=== PATIENT | female | born 1940 | race Caucasian/White ===

== ENCOUNTER 2019-06-06 11:32 | Outpatient (CLI) | payer MEDICARE, SELFPAY ==
--- NOTE | 2019-06-06 11:35 | MM_ITS ---
WS: [id number] BILATERAL SCREENING MAMMOGRAM WITH GAEL DISPLACEMENT VIEWS. CAD PERFORMED. HISTORY: SCREENING COMPARISON: 04/27/2018, 01/26/2017 Bilateral craniocaudal and mediolateral like views are performed. Gael displacement views in CC and MLO projection also performed. Breasts composition: There are scattered areas of fibroglandular density. Benign calcification in the posterior LEFT breast. Implants are intact. There is calcification associ ated with the RIGHT breast implant but similar to prior studies. No suspicious masses or distortion. MM/[place] [id number] IMPRESSION: BI-RADS: 2-Benign FOLLOW-UP: 1 Year Follow-up
== END 2019-06-06 11:33 | disposition home or self-care (01) ==
LOC: RADSHAW 11:32
PROVIDERS: Family Provider Internal Medicine; PCP Internal Medicine; Visit Provider Internal Medicine
DX: Z12.31 Encounter for screening mammogram for malignant neoplasm of breast (principal)
CPT/HCPCS: 77067

== ENCOUNTER → 2019-12-13 14:30 | Outpatient (BNVA) | payer MEDICARE, SELFPAY | PROVIDERS: Family Provider Internal Medicine; PCP Internal Medicine; Referring Provider Dermatology; Visit Provider Dermatology | DX: L57.0 Actinic keratosis (principal); L81.4 Other melanin hyperpigmentation; D23.9 Other benign neoplasm of skin, unspecified; L82.1 Other seborrheic keratosis; D18.01 Hemangioma of skin and subcutaneous tissue | CPT/HCPCS: 17000; 99203 ==

== ENCOUNTER 2020-02-13 14:00 | Outpatient (CLI) | payer MEDICARE, SELFPAY ==
--- NOTE | 2020-02-13 14:06 | XR_ITS ---
WS: [id number] Exam: XR DEXA axial skeleton* [id number] Date/Time of Exam: 02/13/2020 2:08 PM Reason For Exam: OSTEOPOROSIS DEXA BONE DENSITOMETRY [employer] The L1-L4 bone mineral density measures 1.109 g/cm2. This corresponds to a T score of -0.6 and Z scor e of 1.0. Left femoral neck bone mineral density measures 0.673 g/cm2. This corresponds to T score of -2.7 and Z score of -0.8. Right femoral neck bone mineral density measures 0.688 g/cm2. This corresponds to a T score of -2.5 a nd Z score of -0.7. Mean femoral neck bone mineral density measures 0.681 g/cm2. This corresponds to a T score of -2.6 an d Z score of -0.7 XR/XR DEXA axial skeleton* [id number] IMPRESSION: Bone mineral density lies in the osteoporotic range. Refer to detailed summary .
== END 2020-02-13 14:01 | disposition home or self-care (01) ==
PROVIDERS: Family Provider Internal Medicine; PCP Internal Medicine; Visit Provider Internal Medicine
DX: M81.0 Age-related osteoporosis without current pathological fracture (principal)
CPT/HCPCS: 77080

== ENCOUNTER 2020-02-14 13:57 | Outpatient (CLI) | payer MEDICARE, SELFPAY ==
--- NOTE | 2020-02-14 14:15 | USCV_ITS ---
Dalila Munoz Age: 79 Gender: F : 1940 Exam Date: 02/14/2020 14:26 Ordering Phys: Ana Brock MD ([email or web address]) Technologist: Tye Stevens Exam Location: [facility] [place] Indication: chest pain BP: 143 / 83 HR: 61 Rhythm: Sinus Technical Quality: Adequate MEASUREMENTS (Male / Female) Normal Values 2D ECHO LV Diastolic Diameter PLAX 3.8 cm 4.2 - 5.9 / 3.9 - 5.3 cm LV Systolic Diameter PLAX 2.7 cm IVS Diastolic Thickness 1.0 cm 0.6 - 1.0 / 0.6 - 0.9 cm IVS Systolic Thickness 1.3 cm LVPW Diastolic Thickness 1.2 cm 0.6 - 1.0 / 0.6 - 0.9 cm LVPW Systolic Thickness 1.4 cm LVOT Diameter 2.1 cm LV Ejection Fraction 2D Teich 57.8 % LV Ejection Fraction MOD 2C 73.7 % LV Ejection Fraction 2C AL 73.5 % LA Diameter 3.7 cm LA Width 3.8 cm LA Height 4.2 cm RA Width 3.3 cm RA Height 4.9 cm M-MODE LV Diastolic Diameter MM 5.0 cm 4.2 - 5.9 / 3.9 - 5.3 cm LV Systolic Diameter MM 3.6 cm LV Ejection Fraction MM Teich 56.0 % IVS Diastolic Thickness MM 1.0 cm 0.6 - 1.0 / 0.6 - 0.9 cm IVS Systolic Thickness MM 1.1 cm LVPW Diastolic Thickness MM 1.1 cm 0.6 - 1.0 / 0.6 - 0.9 cm LVPW Systolic Thickness MM 1.6 cm RV Diastolic Diameter MM 1.9 cm Aortic Annulus Diameter 2.7 cm LA Ao Ratio MM 1.5 MV E Point Septal Separation 1.0 cm DOPPLER AV Peak Velocity 109.0 cm/s LVOT Peak Velocity 89.0 cm/s AV Area Cont Eq vti 2.5 cm squared AV Area Cont Eq pk 2.7 cm squared MV Area PHT 5.0 cm squared Mitral E to A Ratio 1.0 MV E' Velocity 52.5 cm/s Mitral E to MV E' Ratio 10.9 Mitral E to LV E' Lateral Ratio 9.8 Mitral E to LV E' Septal Ratio 12.4 TR Peak Velocity 319.0 cm/s TR Peak Gradient 40.7 mmHg TV Peak E Velocity 97.0 cm/s Right Atrial Pressure 3.0 mmHg Pulmonary Artery Systolic Pressu 43.7 mmHg FINDINGS Left Ventricle Normal left ventricular size and systolic function, EF 69 %. Mild left ventricular hypertrophy. No regional wall motion abnormalities. Grade II/IV diastolic dysfunction, moderately elevated filling pressures. Right Ventricle The right ventricle is normal in size and function. Right Atrium The right atrium is normal in size. Left Atrium The left atrium is normal in size. Mitral Valve Mild mitral valve regurgitation. Aortic Valve The aortic valve morphology could not be delineated well Tricuspid Valve Tricuspid valve not well visualized. Pulmonic Valve Pulmonic valve not well visualized. Pericardium Normal pericardium without effusion. Aorta Normal ascending aorta dimension. CONCLUSIONS Normal left ventricular size and systolic function, EF 69 %. Mild left ventricular hypertrophy. No regional wall motion abnormalities. Grade II/IV diastolic dysfunction, moderately elevated filling pressures. Mild mitral valve regurgitation. There is no pericardial effusion. There are no intracardiac masses. No previous study is available for comparison. Dr Ana Brock MD [facility] (Electronically Signed) Final Date: 14 February 2020 18:10 S
--- NOTE | 2020-02-14 15:00 | USCV_ITS ---
Dalila Munoz Age: 79 Gender: F : 1940 Exam Date: 02/14/2020 14:41 Ordering Phys: Ana Brock MD ([email or web address]) Technologist: Tye Stevens Exam Location: [facility] [place] Indication: chest pain Risk Factors: Previous Vascular Surgery: Right Brachial BP: / Left Brachial BP: / Right Left Velocity (cm/s) Spectral Plaque Velocity (cm/s) Spectral Plaque Syst/Diast Broadening Syst/Diast Broadening 78.30/ 15.40 Prox CCA 56.30 / 9.25 76.10/ 12.10 Mid CCA 57.95 / 12.20 42.00/ 10.10 Distal CCA 54.65 / 15.55 56.30/ 16.80 Prox ICA 90.80 / 24.40 67.20/ 16.80 Mid ICA 155.20/ 31.40 70.60/ 18.50 Distal ICA 205.30/ 44.75 86.60 ECA 90.35 0.90 ICA/CCA 2.87 Antegrade Vertebral Antegrade 44.90/ 11.75 cm/s 51.90/ 14.30 cm/s Tri Subclavian Tri 102.7 74.30 5 FINDINGS Moderate to heavy heterogeneous plaques in the mid to distal internal carotid artery on the left side. Mild diffuse plaques at the right bifurcation and internal carotid artery Normal Doppler flow velocities in the external carotid arteries bilaterally Antegrade flow in the vertebral arteries bilaterally CONCLUSIONS Moderate to heavy heterogeneous plaques in the mid to distal internal carotid artery on the left side with velocity elevation, suggestive of hemodynamically significant stenosis. Mild diffuse plaques at the right bifurcation internal carotid artery. Consider CTA, to better evaluate the distal internal carotid artery on the left side. No similar previous studies are available for comparison Dr Ana Brock MD [facility] (Electronically Signed) Final Date: 14 February 2020 18:23 S
== END 2020-02-14 13:58 | disposition home or self-care (01) ==
PROVIDERS: PCP Internal Medicine; Visit Provider Internal Medicine Cardiovascular Disease
DX: R07.89 Other chest pain (principal); R01.1 Cardiac murmur, unspecified; R26.81 Unsteadiness on feet; I65.23 Occlusion and stenosis of bilateral carotid arteries; I34.0 Nonrheumatic mitral (valve) insufficiency
CPT/HCPCS: 93306; 93880

== ENCOUNTER 2020-02-17 07:57 | Outpatient (CLI) | payer MEDICARE, SELFPAY ==
--- NOTE | 2020-02-17 08:07 | ECG_ITS ---
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 Interpretive Statements NAME OF STUDY: LEXISCAN SESTAMIBI STRESS TEST INDICATION: Shortness of Breath, PROCEDURE: At the baseline, the EKG revealed sinus bradycardia with a poor R wave progression. Some nonspecific ST T changes. The baseline blood pressure was 189/97 mm Hg with a heart rate of 56 beats/min. Lexiscan was infused over a period of 20 seconds. A total of 0.4 milligrams of Lexiscan was infused. The stress phase was continued for a total of 5 minutes. Heart rate at the end of the stress phase was 81 with a blood pressure 174/80. The EKG at the peak infusion revealed nonspecific ST-T changes in the inferior and anterolateral leads. Sestamibi was injected 20 seconds after the Lexiscan infusion. Blood pressure at the end of the recovery phase was 172/89 with a heart rate of 76 per minute. CONCLUSION: 1. Nonspecific ST-T changes with the LexiScan infusion 2. No LexiScan induced chest pain or cardiac arrhythmia 3. Normal blood pressure and heart rate response 4. Sestamibi/sestamibi perfusion scan pending; see separate report. 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 [id number]
--- NOTE | 2020-02-17 08:07 | NMCV_ITS ---
NM andrew perf SPECT r/s* [id number] Dalila Munoz Age: 79 Gender: F : 1940 Exam Date: 02/17/2020 08:07 Ordering Phys: Ana Brock MD ([email or web address]) Technologist: KUNAL Guerra Exam Location: [facility] Indications: SHORTNESS OF BREATH STRESS TEST [facility] IMAGE PROTOCOL Rest/Stress 1 Lexiscan Day Radiopharmaceutical Dose (mCi) Administration Site Administered by Rest: Tc-99m 10.4 IV KUNAL Guerra Sestamibi Stress:Tc-99m 32.6 IV KUNAL Early Sestamibi Rest: 17-Feb-2020 60 Discovery 630 Stress: 17-Feb-2020 30 Discovery 630 0.4mg Lexiscan. Images obtained in supine and prone position. SPECT RESULTS Technical Quality: Excellent Raw Data Analysis: Normal Image Corrections: No attenuation or motion correction applied Summed Stress Score: 0 Summed Rest Score: 4 Summed Difference Score: 0 PERFUSION FINDINGS Patchy areas of decreased tracer uptake were noted in the apical segments with no significant reversibility FUNCTIONAL RESULTS (calculated via Gated SPECT) Stress Image LV EF (%): 82 Stress EDV (mL):61 TID: 1.07 Stress ESV (mL):11 FUNCTIONAL FINDINGS: Segmental wall motion analysis revealed no gross wall motion abnormalities. IMPRESSIONS 1. Myocardial perfusion imaging revealing patchy areas of persistent decreased tracer uptake in the apical segments, suggestive of myocardial scarring versus attenuation artifact. 2. Normal LV ejection fraction of 82%. 3. LV wall motion analysis revealing no gross wall motion normalities. 4. Normal LV volume. No significant coronary ischemia, based on the above findings Dr Ana Brock MD FAC (Electronically Signed) Final Date: 17 February 2020 17:41 S
[2020-02-17 08:22] VITALS: BMI 27.1
[2020-02-17] MEDS: regadenoson 0.4 Mg/5 ml Syringe IVP (09:56)
[2020-02-17 10:12] VITALS: BP 172/89; PULSE 85
== END 2020-02-17 07:58 | disposition home or self-care (01) ==
LOC: CDL 08:01
PROVIDERS: PCP Internal Medicine; Visit Provider Internal Medicine Cardiovascular Disease
DX: R06.02 Shortness of breath (principal); R01.1 Cardiac murmur, unspecified
CPT/HCPCS: 78452; 93017; A9500; J2785

== ENCOUNTER 2020-02-29 12:51 | Outpatient (CLI) | payer MEDICARE, SELFPAY ==
--- NOTE | 2020-02-29 13:00 | CT_ITS ---
WS: [id number] CT ANGIOGRAM CEREBRAL AND CAROTID ARTERIES Noncontrast CT head HISTORY: I65.29 - Occlusion and stenosis of unspecified carotid artery TECHNIQUE: CT angiogram is performed of the carotid and cerebral arteries. During arterial injection imaging is obtained from the skull vertex to the aortic arch in 1.25 mm imaging. Coronal and sagittal reformats are submitted. Additional multi planar reformats of the carotid and cerebral arteries are submitted, MIP imaging also reviewed. NASCET criteria utilized. All CT scans at [facility] use at least one of these dose optimization techniques: automated exposure control; mA and/or kV ad justment per patient size (includes targeted exams where dose is matched to clinical indication); or iterative reconstruction. CONTRAST: Omnipaque 350; 95 mL IV. DLP: 2064.49 mGycm COMPARISON: Carotid ultrasound 04/15/2019. Noncontrast CT head is negative for acute intracranial hemorrhage or edema. Mild atrophy and chronic ischemic disease. Carotid Angiogram: Right carotid: Common carotid artery: Arises normally from the innominate artery. No significant plaque or stenosis. Internal carotid artery: No plaque or stenosis. External carotid artery: Patent. Left carotid: Common carotid artery: Arises normally from the aorta. No significant plaque or stenosis. Internal carotid artery: Intimal thickening and calcified plaque involving the proximal LEFT ICA. Ruben nosis extends over length of approximately 1 cm. LEFT ICA stenosis 78%. External carotid artery: Patent. Right vertebral artery: Unremarkable. Left vertebral artery: Unremarkable. Arises normally from the subclavian artery. Subclavian arteries: No stenosis or significant abnormality. Upper thorax: Normal. Thyroid gland: Thyroid gland is very small caliber or absent. Osseous structures: Unremarkable. CEREBRAL ANGIOGRAM: Intracranial vertebral arteries: Normal with no significant atherosclerosis. Basilar artery: No significant stenosis or occlusion. No aneurysm. Intracranial Internal carotid arteries: Small noncalcified plaque through the cavernous sinuses. No o cclusion. Middle cerebral arteries: Normal. Anterior cerebral arteries and ACOM: Normal. Posterior cerebral arteries and PCOM's: Normal. Dural venous sinuses are normally enhancing. Mastoid air cells: Normal. Paranasal sinuses: Normal. Calvarium: Normal. CT/CT angio headneck* [id number] IMPRESSION: 1. LEFT extracranial ICA stenosis 78%. 2. Less than 50% stenosis RIGHT ICA. 3. Mild intracranial carotid artery atherosclerosis without significant stenos is.
[2020-02-29 13:31] LABS: Blood Urea Nitrogen 18 mg/dL (8-23)
[2020-02-29] MEDS: iohexol 350 mg/mL 100 mL Btl IV (13:44)
== END 2020-02-29 12:52 | disposition home or self-care (01) ==
LOC: RADWPI 12:55
PROVIDERS: PCP Internal Medicine; Visit Provider Internal Medicine Cardiovascular Disease
DX: I65.23 Occlusion and stenosis of bilateral carotid arteries (principal); Z01.812 Encounter for preprocedural laboratory examination
CPT/HCPCS: 70496; 70498; 82565; 84520; Q9967

== ENCOUNTER → 2020-03-27 09:01 | Outpatient (BNVA) | payer MEDICARE, SELFPAY | PROVIDERS: PCP Internal Medicine; Visit Provider Internal Medicine Cardiovascular Disease | DX: I65.21 Occlusion and stenosis of right carotid artery (principal); E78.5 Hyperlipidemia, unspecified | CPT/HCPCS: 80061; 80076 ==

== ENCOUNTER → 2020-04-24 11:32 | Outpatient (BNVA) | payer MEDICARE, SELFPAY | PROVIDERS: PCP Internal Medicine; Visit Provider Thoracic Surgery (Cardiothoracic Vascular Surgery) | DX: Z01.812 Encounter for preprocedural laboratory examination (principal); I65.21 Occlusion and stenosis of right carotid artery | CPT/HCPCS: 87635 ==

== ENCOUNTER 2020-04-30 10:35 | Inpatient (IN) | payer MEDICARE, SELFPAY ==
[2020-04-24 09:11] VITALS: BMI 26.6
[2020-04-24 10:32] LABS: Basophils # 0.1 10^3/uL (0.0-0.1); Eosinophils # 0.3 10^3/uL (0.0-0.8); Eosinophils % 4.7 %; Hematocrit 43.9 % (37.0-47.0); Hemoglobin 14.1 g/dL (11.5-15.3); Lymphocytes # 1.3 10^3/uL (0.8-4.8); Lymphocytes % 22.2 %; Mean Corpuscular HGB Conc 32.1 g/dL (30.0-36.0); Mean Corpuscular Hemoglobin 29.3 pg (28.0-34.0); Mean Corpuscular Volume 91.3 fL (81-99); Mean Platelet Volume 10.4 fL (7.4-10.4); Monocytes # 0.7 10^3/uL (0.2-0.9); Monocytes % 11.2 %; Neutrophils # 3.51 10^3/uL (1.8-7.7); Neutrophils % 60.6 %; Nucleated Red Blood Cells % 0 %; Platelet Count 209 10^3/cmm (130-400); Red Blood Count 4.81 10^6/uL (4.1-5.3); Red Cell Distribution Width 13.1 % (12.1-15.1); White Blood Count 5.8 10^3/uL (4.0-10.0)
[2020-04-24 10:40] LABS: INR 0.95 (0.8-1.2)
[2020-04-24 10:47] LABS: Anion Gap 11.5 (5-19); Blood Urea Nitrogen 20 mg/dL (8-23); Calcium 9.8 mg/dL (8.5-10.5); Carbon Dioxide 32 mmol/L (22-29); Chloride 98 mmol/L (98-107); Glucose 96 mg/dL (65-115); Osmolality Calculated 288 mOsm/kg (285-295); Potassium 3.5 mmol/L (3.5-5.1); Sodium 138 mmol/L (136-145)
[2020-04-24 10:50] LABS: Creatinine Clr Calc Pharmacy 44.7879
--- NOTE | 2020-04-24 10:52 | P.ANESASSM_ITS ---
Pre-Anesthetic Assessment Pre-Anesthetic Assessment: Height/Weight: Height 1.65 m Weight 72.575 kg Preop Diagnosis: Left carotid artery stenosis Proposed Procedure: Operation Date: 04/30/20 07:00 Proposed Procedures p Carotid Endarterectomy(Not Applicable) - Alejo Cabrales MD Was Beta Rony taken within 24 hours: Yes Social: Social History: No alcohol and No tobacco Exam: Pre-Anes Outpt Exam: alert, oriented x 3, clear to auscultation bilaterally and regular rate & rhythm Airway: Submandibular: WNL Cervical ROM: WNL MP: 2 Dentition: Full Additional comments: Patient gives history of airway trauma during hysterectomy in s--describes lots of bleeding and sore throat CV/HEM: CV/HEM: Arrythmia (Palpitations, recent stress test unremarkable, sinus liz with poor R wave progression) and PVD Comments: Left carotid stenosis Neuropsych: Neuropsych: Anxiety Anesthetic Plan: ASA status: 3 Anesthesia: General Other: A.line PFSH Anesthesia 2 PFSH: Medical History Atrial arrhythmia EKG from 12/26/2019 revealed sinus rhythm with a frequent PACs in the form of couplets. Reviewed ST-T changes. Poor R wave progression. Possible left atrial enlargement. Benign essential HTN Carotid stenosis Cataract Heart murmur IBS (irritable bowel syndrome) Left ventricular diastolic dysfunction Migraines Mitral regurgitation Radiation thyroiditis Unsteadiness on feet Surgical History H/O: hysterectomy History of bilateral breast implants Family History Mother CAD (coronary artery disease) Stroke Sister Cancer Other Hypertension Denies family history of Diabetes Clotting disorder Dementia Chronic kidney disease (CKD) Suicide Anesthesia complication Bleeding disorder Lung disease Social History Smoking and tobacco status: never smoked Alcohol intake: never History of recent travel: No Data Anesthesia CBC & Chem 7: 04/24/20 09:52 04/24/20 09:52 Other Labs: Laboratory Results - last 48 hr 04/24/20 04/24/20 04/24/20 09:52 09:52 09:52 WBC 5.8 RBC 4.81 Hgb 14.1 Hct 43.9 MCV 91.3 MCH 29.3 MCHC 32.1 RDW 13.1 Plt Count 209 MPV 10.4 Neut % (Auto) 60.6 Lymph % (Auto) 22.2 [place] % (Auto) 11.2 Eos % (Auto) 4.7 Baso % (Auto) 1.0 Neut # (Auto) 3.51 Lymph # (Auto) 1.3 [place] # (Auto) 0.7 Eos # (Auto) 0.3 Baso # (Auto) 0.1 Nucleated RBC % (auto) 0 Nucleated RBCs # 0.0 PT 13.00 INR 0.95 Sodium 138 Potassium 3.5 Chloride 98 Carbon Dioxide 32 H Anion Gap 11.5 BUN 20 Creatinine 1.0 H GFR Calculation Not Reportable Glucose 96 Calculated Osmolality 288 Calcium 9.8 Cardiac Studies: No Data to Display
[2020-04-24 11:13] LABS: Bilirubin Urine Neg (Negative); Blood Urine Neg (Negative); Glucose Urine UA Norm (Normal); Ketones Urine Negative (Negative); Nitrate Urine Negative (Negative); Protein Urine Neg (Negative); Specific Gravity, Urine 1.005 (1.005-1.030); Urine Appearance Clear (CLEAR); Urine Color Straw (Yellow); Urobilinogen Urine Norm (Negative)
[2020-04-24 11:14] LABS: Add Urine Microscopic? YES; Leukocyte Esterase Urine 1+ (Negative)
[2020-04-24 11:37] LABS: Add Urine Culture? No; Bacteria Urine 1+ /hpf; RBC Urine 0-4 /hpf (0-2); Squamous Epithelial Cell Urine 0-4 /hpf (0-5)
[2020-04-30] VITALS (27 sets, daily range): BP systolic 99–185; BP diastolic 53–85; PULSE 53–100; RESP 11–26; TEMP 36.4; O2SAT 94–100
--- NOTE | 2020-04-30 05:37 | XRR_ITS ---
PROCEDURE INFORMATION: Exam: XR Chest, 2 Views Exam date and time: 04/30/2020 6:13 AM Age: 79 years old Clinical indication: Pre-operative exam; Cardiovascular screening and respiratory screening exam; Additional info: Preop for carotid endarterectomy TECHNIQUE: Imaging protocol: XR of the chest Views: 2 views. COMPARISON: CR XR chest 2V* [id number] 09/22/2019 11:57 AM FINDINGS: Lungs: Lungs appear hyperexpanded. No focal or acute consolidation. Pleural spaces: Unremarkable. No pleural effusion. No pneumothorax. Heart/Mediastinum: No significant cardiomegaly. Bones/joints: No acute findings. XR/XR chest 2V* [id number] IMPRESSION: Pulmonary hyperexpansion may indicate chronic obstructive pulmonary disease (COPD).
[2020-04-30] MEDS: lidocaine 1% INJ 20 mL INTRADERMA (06:10)
[2020-04-30] MEDS: sodium chloride 0.9% 1,000 ML 30 ML IV (06:26)
--- NOTE | 2020-04-30 06:38 | P.ANESUD_ITS ---
Pre-Anesthetic Update Pre-Anesthetic Assessment: Date of Surgery/Procedure: 04/30/20 Preop Gladis gnosis: Left carotid artery stenosis Proposed Procedure: Operation Date: 04/30/20 07:00 Proposed Procedures p Carotid Endarterectomy(Left) - Alejo Cabrales MD Any changes to Pre-Anesthetic Assessment?: No Last Intake: Intake Last Liquid Date 04/29/20 Last Liquid Time 20:30 Last Solid Date 04/29/20 Last Solid Time 20:30 Labs Last 48hrs: Laboratory Results - last 48 hr 04/24/20 09:52 Blood Type O Positive Rho(D) Type Positive Antibody Screen Negative Crossmatch See Detail Vitals: Temperature 97.5 F L 04/30/20 05:42 Temperature Source Temporal Artery S can 04/30/20 05:42 Pulse Rate 100 04/30/20 05:42 Respiratory Rate 18 04/30/20 05:42 Blood Pressure 180/85 04/30/20 05:42 Blood Pressure Letitia n 116 04/30/20 05:42 Pulse Oximetry 100 04/30/20 05:42 Oxygen Delivery Me thod 04/30/20 06:06 Exam: Pre-Anes Outpt Exam: alert, oriented x 3, clear to auscultation bilaterally and regular rate & rhythm Other Pertinent Information: Other Pertinent Information: Took propanolol this morning. patient once again states she had copious pharyngeal bleeding after a hysterectomy in her 30s, due to the tube being too big. she was told they nearly lost her and she described her lungs and stomach filling up with blood coming from her throat. Cardiac Studies: No Data to Display
--- NOTE | 2020-04-30 07:38 | W.PM.OPSUD ---
Surgery/Procedure H&P Update DATE OF PROCEDURE: April 30, 2020 DATE H&P PERFORMED: 04/12/20 H&P UPDATE INFORMATION: I have reviewed H&P completed within last 30 days, I have examined patient prior to procedure and No changes to prior documentation PREOP DIAGNOSIS: Left carotid artery stenosis PRIMARY INDICATION FOR PROCEDURE: High-grade left ICA stenosis PLANNED PROCEDURE: Operation Date: 04/30/20 07:00 Proposed Procedures p Carotid Endarterectomy(Left) - Aljeo Cabrales MD
[2020-04-30] MEDS: vancomycin 1,000 MG SDV 1000 MG IRRIGATION (07:55)
[2020-04-30] MEDS: heparin, porcine 1,000 unit/mL INJ 10 mL 10000 UNIT IRRIGATION (07:55)
--- NOTE | 2020-04-30 10:40 | PM.OP ---
Operative Report Date of procedure: April 30, 2020 Pre-op Diagnosis: Left carotid artery stenosis Post-op diagnosis: same Procedure Done: Left carotid endarterectomy with patch angioplasty Implants: Hemashield patch Specimens removed/disposition: Left carotid plaque Surgeon: Alejo Cabrales Anesthesia: General Estimated blood loss (mL): 100 Complications: None: Neurologically intact immediately postop Findings: Long fibrous plaque with ruptured ulcer. Condition: stable Disposition: ICU Brief History: Ms. Munoz is an 79-year-old female referred to our service because of an 80% left ICA stenosis just distal to the bifurcation which was relatively long. We discussed the statistical increased risk for spontaneous CVA related to this lesion and consideration for surgical correction. After discussion with her family, all wished to proceed. Appropriate consents have been reviewed and signed. Procedure: Ms. Munoz was placed on the OR table and underwent general endotracheal anesthesia with a neurological monitoring endotracheal tube as well as placement of a right radial arterial line. Bihemispheric monitoring pads were placed as well as grounding and sensing pads for nerve conduction evaluation during neck dissection.The entire upper chest and right neck were sterilely prepped and draped. Incision was made along the anterior border of the sternomastoid muscle and carried down to the platysma with cautery. Dissection from this point forward was carried out utilizing Metzenbaum scissors and limited use of bipolar cautery. The internal jugular vein was dissected free. Minor venous branches were divided if required to allow for adequate exposure. Nerve conduction evaluation was performed throughout the dissection for protection of the recurrent nerve. We subsequently reached the common carotid artery. The bifurcation was situated relatively low. Dissection was then continued proximally to distally across the bifurcation. Vessel loops were placed around the common carotid artery, internal carotid artery, and external carotid artery. Distally, the base of the hypoglossal nerve could be identified and was protected. The internal carotid artery disease stented high and above the level of the mandibular angle. This did require some traction in this region, but great care was taken to minimize pressure to the hypoglossal nerve, which was protected. Care was taken during this dissection to avoid injury to the vagus nerve. The patient was then heparinized with 10,000 units. The systolic blood pressure was elevated to 160. Following this, in a rapid sequenced fashion, the distal internal carotid artery was clamped followed by clamping of the common carotid artery and external carotid artery. #11 scalpel blade was used to open the common carotid artery proximally. Neal scissors were then utilized to extend this arteriotomy across the distal common carotid artery and ulcerated very stenotic plaque and continue this further at the bifurcation across the calcific plaque in the internal carotid artery until we had reached normal intima. The internal carotid artery clamp was briefly flashed with evidence of brisk back bleeding, therefore we elected not to shunt. It should be noted that bi-hemispheric oximetry was recorded throughout the procedure. Next, a freer elevator was utilized to create a dissection plane the plaque from intima at the proximal portion of the arteriotomy. This was then divided with a #11 scalpel blade. This plaque was then further dissected along the intimal plane proximally to distally across the bifurcation. Utilizing an everting technique, plaque was removed from the external carotid artery with brisk flow. This plaque was then dissected free up the internal carotid artery to a near feathered edge. Heparinized saline solution was utilized to remove any loose debris. The distal intima edge was tacked at multiple points utilizing 7-0 Prolene suture. Next, a Hemashield patch was brought into the field and sewn into position utilizing a running 6-0 Prolene suture, thereby completing our patch angioplasty. At the completion of the patch, the external carotid artery was opened followed by the common carotid artery and finally the internal carotid artery, thereby reestablishing cerebral flow. Areas of extravasation were repaired with 6-0 Prolene suture. After 5 minutes, heparin was reversed with protamine. Hemostasis was confirmed. The wound was irrigated with antibiotic solution. A small, flat, Binu-Caldwell drain was placed in the wound and connected to bulb suction. Sponge and needle count was correct. The wound was then closed in 2 layers of 3-0 Vicryl suture. Skin was reapproximated in a subcuticular manner with 4-0 Monocryl suture. A pressure dressing was then applied. She was awakened from anesthesia and spontaneous movement of all extremities as well as movement to command was noted. Ms. Munoz was then transferred to the ICU in stable condition. We did veterans rehabilitation counselor with her daughter at completion of the procedure. She will be monitored in the ICU for the next 24 hours.
[2020-04-30] MEDS: HYDROcodone-acetaminophen 5-325 mg Tablet 1 TAB PO (12:42)
[2020-04-30] MEDS: lactated ringers 1,000 ML 100 ML IV (12:44)
--- NOTE | 2020-04-30 14:54 | ANE.PACU2 ---
Inpatient post-anesthesia follow up: Airway intact: Yes Vital signs: Temperature 97.5 F Pulse Rate 53 Respiratory Rate 12 Blood Pressure 132/64 Pulse Oximetry 99 Oxygen Delivery Me thod Nasal Cannula Oxygen Flow Rate Fraction of Inspir ed Oxygen Hydration adequate: Yes Nausea and vomiting: No Pain level: 3 Mental status: Baseline
[2020-04-30] MEDS: ondansetron 2 mg/ML SDV 2 mL 4 MG IVP ×2 (15:38→20:24)
[2020-04-30] MEDS: ceFAZolin 1,000 MG in sodium chloride 0.9% (plus) 50 ML 100 MG IV ×2 (15:57→22:50)
[2020-04-30] MEDS: aspirin 81 mg Chew Tablet PO (16:52)
--- NOTE | 2020-04-30 17:30 | PC.NURSE ---
04/30/20 art 17:30. Pt daughter came out of room and states that her moms left side of her mouth was dropping. When lead technical writer and other staff, Onel CLARKE, went in to assess there was not dropping noted. Full NIHSS scale done she only had difficulty she exhibited was difficulty reading the word piercing artist. continued to monitor.
[2020-04-30] MEDS: morphine 4 mg/mL SDV 1 mL 2 MG IVP (17:32)
--- NOTE | 2020-04-30 17:46 | PC.NURSE ---
Pt assisted up to chair. Min assist. Feeling some nausea, Zofran given earlier. MOrphine given for pain. Art line removed, pressure held for 5 min. then dressing applied.
[2020-04-30] MEDS: propranolol 40 mg Tablet PO (19:12)
--- NOTE | 2020-04-30 20:09 | PC.NURSE ---
Upon initial assessment of pt, noted that pt having difficulty answering basic questions. Can eventually come up with correct answer. All other neuros intact. Dr Cabrales notified. Will notify for any other changes.
--- NOTE | 2020-04-30 20:58 | CTR_ITS ---
PROCEDURE INFORMATION: Exam: CT Head Without Contrast Exam date and time: 04/30/2020 9:05 PM Age: 79 years old Clinical indication: Speech disturbance and weakness, facial; Aphasia; Patient HX: Left carotid surgery today; Additional info: [place] alert TECHNIQUE: Imaging protocol: Computed tomography of the head without contrast. Radiation optimization: All CT scans at this facility use at least one of these dose optimization techniques: automated exposure control; mA and/or kV adjustment per patient size (includes targeted exams where dose is matched to clinical indication); or iterative reconstruction. Other technique: STROKE PROTOCOL was implemented. COMPARISON: CT angio headneck* [id number] 02/29/2020 1:36 PM RADIATION DOSE METRICS: Total DLP (mGy-cm): 886.31 FINDINGS: Brain: There is moderate cortical atrophy. Low-density changes in the white matter are consistent with nonspecific small vessel chronic ischemic change. There is no intracranial mass, hemorrhage or edema. Cerebral ventricles: No ventriculomegaly. Bones/joints: Unremarkable. No acute fracture. Paranasal sinuses: Visualized sinuses are unremarkable. No fluid levels. Mastoid air cells: Visualized mastoid air cells are well aerated. Soft tissues: Unremarkable. CT/CT head wo [facility]* [id number] IMPRESSION: 1. No acute findings. 2. No significant change from 02/29/2020 ASSESSMENT: ASPECTS ([place] Stroke Program Early CT Score) is 10. Radiation Dose CTDIVOL = (mGy): DLP = 886.31 (mGy-cm)
--- NOTE | 2020-04-30 20:58 | CTR_ITS ---
PROCEDURE INFORMATION: Exam: CT Angiography Head With Contrast, Arteries Exam date and time: 04/30/2020 9:05 PM Age: 79 years old Clinical indication: Speech disturbance and weakness; Aphasia; Prior surgery; Surgery type: Left carotid SX today; Additional info: Stroke alert TECHNIQUE: Imaging protocol: Computed tomography angiography of the head with intravenous contrast. 3D rendering (Not supervised by radiologist): MIP and/or 3D reconstructed images were created by the technologist. Radiation optimization: All CT scans at this facility use at least one of these dose optimization techniques: automated exposure control; mA and/or kV adjustment per patient size (includes targeted exams where dose is matched to clinical indication); or iterative reconstruction. Contrast material: VISI 320; Contrast volume: 95 ml; Contrast route: INTRAVENOUS (IV); COMPARISON: No relevant prior studies available. RADIATION DOSE METRICS: Total DLP (mGy-cm): 2283.95 FINDINGS: ANTERIOR CIRCULATION: Right internal carotid artery: Unremarkable. Intracranial segment is patent with no significant stenosis. No aneurysm. Right middle cerebral artery: Unremarkable. No occlusion or significant stenosis. No aneurysm. Right anterior cerebral artery: Unremarkable. No occlusion or significant stenosis. No aneurysm. Left internal carotid artery: Cervical portion of the left internal carotid artery is occluded. There is partial filling of the left internal carotid artery in the carotid canal. Filling defects seen in that region could represent some clot or focal dissection. There is also filling defect in the cavernous and ophthalmic portions of the left internal carotid artery. The communicating left internal carotid artery is patent. Left middle cerebral artery: Unremarkable. No occlusion or significant stenosis. No aneurysm. Left anterior cerebral artery: Unremarkable. No occlusion or significant stenosis. No aneurysm. POSTERIOR CIRCULATION: Right vertebral artery: Unremarkable. No occlusion or significant stenosis. No aneurysm. Left vertebral artery: Unremarkable. No occlusion or significant stenosis. No aneurysm. Basilar artery: Unremarkable. No occlusion or significant stenosis. No aneurysm. Right posterior cerebral artery: Unremarkable. No occlusion or significant stenosis. No aneurysm. Left posterior cerebral artery: Unremarkable. No occlusion or significant stenosis. No aneurysm. Brain: No definite mass, mass effect, or midline shift. Cerebral ventricles: No ventriculomegaly. Bones/joints: Unremarkable. No acute fracture. Soft tissues: Unremarkable IMPRESSION: Possible clot or dissection extending into the intracranial left ICA as described above. PROCEDURE INFORMATION: Exam: CT Angiography Neck With Contrast Exam date and time: 04/30/2020 9:05 PM Age: 79 years old Clinical indication: Speech disturbance and weakness; Aphasia; Prior surgery; Surgery type: Left carotid SX today; Additional info: Stroke alert TECHNIQUE: Imaging protocol: Computed tomography angiography of the neck with intravenous contrast. 3D rendering (Not supervised by radiologist): MIP and/or 3D reconstructed images were created by the technologist. Radiation optimization: All CT scans at this facility use at least one of these dose optimization techniques: automated exposure control; mA and/or kV adjustment per patient size (includes targeted exams where dose is matched to clinical indication); or iterative reconstruction. Contrast material: VISI 320; Contrast volume: 95 ml; Contrast route: INTRAVENOUS (IV); COMPARISON: No relevant prior studies available. RADIATION DOSE METRICS: Total DLP (mGy-cm): 2283.95 FINDINGS: Right common carotid artery: No stenosis. No dissection or occlusion. Right internal carotid artery: No stenosis of the extracranial segment. No dissection or occlusion. Right external carotid artery: No occlusion or stenosis of the origin. Right vertebral artery: No stenosis. No dissection or occlusion. Left common carotid artery: No stenosis. No dissection or occlusion. Left internal carotid artery: Left internal carotid artery is occluded beginning around 1 cm beyond its origin and extending to the skull base. This may represent long segment occlusion versus dissection. Left external carotid artery: No occlusion or stenosis of the origin. Left vertebral artery: No stenosis. No dissection or occlusion. Bones/joints: No acute fracture. Soft tissues: Postsurgical changes in left side of the neck CT/CT angio headneck* [id number] IMPRESSION: Complete occlusion of the left internal carotid artery which should be due long segment occlusion versus dissection. COMMENTS: THIS REPORT CONTAINS FINDINGS THAT MAY BE CRITICAL TO PATIENT CARE. The findings were verbally communicated via telephone conference with Alejo Cabrales at 9:46 PM EXCEPTIONAL CHILDREN TEACHER on 04/30/2020. The findings were acknowledged and understood. REFERENCES: NASCET CRITERIA. The degree of internal carotid artery stenosis is based on NASCET criteria. Normal is no stenosis. Mild is less than 50% stenosis. Moderate is 50-69% stenosis. Severe is 70% to 99% stenosis. Total occlusion is no detectable patent lumen. Radiation Dose CTDIVOL = (mGy): DLP = 2283.95~2283.95 (mGy-cm)
--- NOTE | 2020-04-30 21:18 | P.MISC_ITS ---
Miscellaneous Note Note: Contacted by nursing service of [facility] found increasing lethargy and drooping of the right side of the face. Still moving extremities to command. Stat CT scan of head has been initiated and upon my arrival to the ICU, Ms. Munoz is in the radiology department. Dr. Fung from neurology department has been contacted and is standing by. We have also contacted Ms. Munoz's daughter and made her aware of these new findings. I am currently awaiting the return of Ms. Munoz to the ICU and also the CT scan study.
[2020-04-30] MEDS: iodixanol 320 mg/mL 100mL Btl IV (21:20)
--- NOTE | 2020-04-30 22:18 | PM.SAN ---
Stroke Alert Activation ED Arrival Date: 04/30/20 ED Arrival Time: 20:59 Last Known Normal/at Baseline: 1-2 hours ago Other Last Known Well Infomation: Stroke team was called at 2058 because this is a 79-year-old woman developed receptive aphasia and flattening of the right side of the face according to the nursing staff. She was last known normal at change of shift around 7 PM and when the nurse looked at her it 7:30 PM she seemed to have a little bit of difficulty forming her words. Her trouble was attributed to nausea which has plagued her through the afternoon. The nurse continue to watch her carefully and at 8:30 PM she was convinced that the patient had receptive aphasia. She called the hospitalist to came to the bedside and agreed that the patient was having speech difficulty. Dr. Cabrales was notified and came to the bedside as well. She is a healthy person with chronic atypical chest pain and atrial arrhythmia for which she has followed in the cardiac clinic under Dr. Esparza and more recently Dr. Brock. She had a number of nonspecific complaints and Dr. Brock ordered a Doppler ultrasound that showed high flow and occlusive disease in the left internal carotid artery the proved to be 80% stenosis by CTA. The risks and benefits of carotid endarterectomy for asymptomatic stenosis were discussed at length with Dr. Cabrales and she elected to proceed. Surgery was completed at 10:00 this morning and she has been neurologically intact throughout the day. She has a history of migraines. She has been nauseated this afternoon and received multiple doses of Zofran. Stroke Alert Activated by: ICU nurse Stroke Alert Activation Time: 20:59 Stroke MD @ Bedside Time: 20:59 NIH Stroke Scale Time: 21:30 NIH stroke score NIHSS: Level Of Consciousness - 1a: 2 Level Of Consciousness Questions - 1b: Neither Correct Level Of Consciousness Commands - 1c: Neither Correct Best Gaze - 2: Normal Visual Ceja - 3: No Visual Loss Facial Palsy - 4: Normal Motor Arm Right - 5: No Drift Motor Arm Left - 5: No Drift Motor Leg Right - 6: No Drift Motor Leg Left - 6: No Drift Limb Ataxia - 7: Absent Sensory - 8: Normal Best Language - 9: Severe Aphasia Dysarthia - 10: Normal Extinction And Inattention - 11: 0 Score: Total Score: 8 Stroke Alert Data/Treatment Time to CT of Head: 21:00 CT Results Time: 21:30 CT Impression: Normal CT angiogram shows left carotid occlusion with intact [place] and intact left middle cerebral artery including all branches. Stroke Risk Factors: hypertension tPA Contraindication: tPA Contraindication: Medical contraindication tPA Admin Prior to Arrival: No Patient & Family Educated on: Cause of Stroke and Treament Plan Other Patient & Family Education: Dr. Cabrales talked with the patient's daughter. 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 She has intact flow in the [place] with middle cerebral artery wide open but she has receptive aphasia and presumably has a visual field cut but she is not cooperative enough for me to demonstrate that. Dr. Cabrales and I talked about the alternatives and treatment. Ultimately I activated the doctor's access line and talked with Dr. Kenn Hubbard. I presented the case to him. We pushed the images to [facility] and Dr. Hubbard reviewed those with Dr. Del Castillo, neuroradiology. Dr. Del Castillo's concern was that if he were to stent the left carotid or do embolectomy on the left carotid there would be high likelihood of pushing clot further downstream to occlude the left middle cerebral artery which is currently open. Dr. Hubbard thought that heparinization would be a reasonable alternative. He recommended allowing blood pressure to run mildly elevated. Dr. Cabrales and I participated in this discussion. We do not see any reason to transfer the patient if instrumentation or embolectomy/thrombectomy is not an option and we can manage her medically here. Dr. Cabrales has been in touch with her daughter throughout this process. Critical Care Time Critical Care Time: 30 - 74 mins Coding Level of Care Code Acute Lighting Equipment Operator for [place]
--- NOTE | 2020-04-30 22:39 | P.PN_ITS ---
Subjective Subjective: Interval history: Results of CTA of the head to confirm lack of flow in the carotid artery on the left side at the level of recent endarterectomy and concerns for localized dissection. Intracranial circulation appears to be intact through the [place] and into the middle cerebral arteries. Dr. Fung has been able to rapidly assist us and assess but is consistent with a receptive aphasia. She has been in contact with our colleagues at [facility] as to the potential for interventional options. Vitals/I&O/Wt Last Vital Signs Temp 97.6 F 04/30/20 19:47 Pulse 53 L 04/30/20 19:47 Resp 12 04/30/20 19:47 BP 132/64 04/30/20 19:47 Pulse Ox 99 04/30/20 14:30 04/30/20 04/30/20 04/30/20 06:59 14:59 22:59 Intake Total 50 / 50 120 / 170 Output Total 1005 / 1005 Balance 50 / 50 -885 / -835 Physical Exam Extremity: OTHER: Ms. Munoz is moving remedies to command. She is answering simple questions with the nurses including her name and her location here in [place]. She has had again recalcitrant nausea. She has received repetitive doses of Zofran with modest effect. Urinary Catheter Management^: Brantley: Cath Placed During This Visit: yes Reason for Continuing Indwelling Catheter: Accurate Measurement of Urinary Output in Critically Ill Patients Urinary Catheter Date of Insertion: 04/30/20 Urinary Catheter Time of Insertion: 08:11 Data : 04/24/20 09:52 04/24/20 09:52 A&P Assessment and plan (1) CVA (cerebral vascular accident): Approximately 12 hours status post left carotid endarterectomy with interruption of flow at the level of endarterectomy with localized dissection. Intact [place]. Receptive dysphagia noted by Dr. Fung. Extensive conversation with our colleagues at [facility] with the direction of Dr. Fung. Recommendation at this time is not for intervention and to continue to treat medically utilizing passive hypertension, hydration with normal saline, maintain n.p.o. status, and heparinization as well as continued antiplatelet therapy with aspirin only. I have spoken by phone with Nicky, Ms. Munoz's daughter. Events have been reviewed as well as planned. She is traveling to the ICU to visit with her mother at bedside. I greatly appreciate the expertise and responsiveness of Dr. Fung from our neurology department as well as our colleagues at [facility] for the ir review, insight, and recommendations. I also appreciate the responsiveness of our radiology department and rapidly obtaining CT scanning and interpretation of our radiology service. As of this dictation, Ms. Munoz is moving all extremities to command. She still has some nausea. She is answering basic questions appropriately. Dr. Fung has raised an interesting question as to whether her nausea might be a migraine equivalent. At this time, in order to avoid any type of extra sedation to allow for a more direct neurologic exam, we will administer Reglan 10 mg to see if this will help with her nausea. Our current plan will be for heparinization for the next 36 hours. We will not give a bolus since she is recently had surgery. We will check a PTT in 6 hours. Continue ICU observation and close neurological exams. Status: Acute Attestations Medical Necessity Statement*: Status post carotid endarterectomy with localized dissection and carotid repair Time Spent in Patient Care: Greater than 35 minutes (100) Coding Level of Care Code Acute Instrumentation Engineering Technician for Chg Fwd Diagnoses CVA (cerebral vascular accident) I63.9
[2020-04-30] MEDS: heparin drip 25,000 UNIT/500 ML PREMIX 22 UNIT IV (22:49)
[2020-04-30] MEDS: sodium chloride 0.9% 1,000 ML 125 ML IV (22:49)
--- NOTE | 2020-04-30 22:49 | PC.NURSE ---
Addendum entered by Beatriz Patrick RN 04/30/20 22:50: Per Dr. Cabrales on ICU unit at this time at 2250 Original Note: New Order: New order for Reglan 10mg IVP for n/v every 8 hours PRN
[2020-04-30] MEDS: metoclopramide 5 mg/mL SDV 2 mL 10 MG IVP (22:56)
[2020-05-01] VITALS (26 sets, daily range): BP systolic 89–205; BP diastolic 50–101; PULSE 53–77; RESP 0–28; TEMP 36.6–37.1; O2SAT 87–97
--- NOTE | 2020-05-01 02:27 | PM.MISC ---
Miscellaneous Note Note: Daughter and sitter at bedside. Ms. Munoz appears to be a bit more comfortable and not as restless. Heparin infusion continues. IV fluids have been changed to normal saline at 125 cc/h. Will obtain speech therapy consultation as well as physical therapy consultation in the morning. Will maintain n.p.o. for now. [place] with daughter for quite some time. All questions answered. I will remain in hospital through the night for any acute status changes and availability to patient, nurses, and family.
--- NOTE | 2020-05-01 03:54 | PC.NURSE ---
Upon initial assessment of patient, noted that pt had some difficulty finding words, but was able to formulate correct answers. All other neuros intact and Quang notified. Around 2054, noted that pt having some expressive aphasia, also a slight right facial droop. Dr Smith to room, code stroke called. Pt to CT. Dr. Cabrales and Dr. Fung to room to assess patient after CT completed. Heparin drip initiated as ordered. Pt resting comfortably, still exhibiting some global aphasia, but appears to be slightly improved. Still no weakness noted in either extremity. Daughter at bedside until 229.
[2020-05-01] MEDS: ondansetron 2 mg/ML SDV 2 mL 4 MG IVP (04:26)
[2020-05-01 05:38] LABS: Basophils % 0.1 %; Eosinophils % 0.2 %; Hematocrit 37.8 % (37.0-47.0); Hemoglobin 12.4 g/dL (11.5-15.3); Lymphocytes # 1.2 10^3/uL (0.8-4.8); Lymphocytes % 9.4 %; Mean Corpuscular HGB Conc 32.8 g/dL (30.0-36.0); Mean Corpuscular Hemoglobin 29.7 pg (28.0-34.0); Mean Corpuscular Volume 90.4 fL (81-99); Mean Platelet Volume 11.2 fL (7.4-10.4); Monocytes % 7.7 %; Neutrophils % 82.1 %; Nucleated Red Blood Cells % 0 %; Platelet Count 191 10^3/cmm (130-400); Red Blood Count 4.18 10^6/uL (4.1-5.3); Red Cell Distribution Width 13.3 % (12.1-15.1); White Blood Count 12.7 10^3/uL (4.0-10.0)
[2020-05-01 05:54] LABS: Anion Gap 15.9 (5-19); Blood Urea Nitrogen 15 mg/dL (8-23); Calcium 8.3 mg/dL (8.5-10.5); Carbon Dioxide 21 mmol/L (22-29); Chloride 103 mmol/L (98-107); Glucose 120 mg/dL (65-115); Osmolality Calculated 284 mOsm/kg (285-295); Potassium 3.9 mmol/L (3.5-5.1); Sodium 136 mmol/L (136-145)
[2020-05-01 05:59] LABS: Glucose Point of Care 151 mg/dL (70-110)
[2020-05-01 05:59] LABS: Partial Thromboplastin Time 213.8 SECONDS (23.9-36.7)
--- NOTE | 2020-05-01 06:22 | PC.NURSE ---
Lab called with critical high ptt. Dr. Cabrales notified. Heparin paused. PTT redrawn. Awaiting results.
[2020-05-01 06:51] LABS: Partial Thromboplastin Time 182.1 SECONDS (23.9-36.7)
--- NOTE | 2020-05-01 07:00 | P.PN_ITS ---
Subjective Subjective: Interval history: Rested well the second half of the night. She appears appropriate this morning and is responding to nurses. Moving all extremities spontaneously and answering questions. She has been maintained on a heparin infusion overnight. Vitals/I&O/Wt Last Vital Signs Temp 98 F 05/01/20 04:00 Pulse 53 L 05/01/20 04:00 Resp 12 05/01/20 04:00 BP 132/64 05/01/20 04:00 Pulse Ox 99 04/30/20 14:30 04/30/20 05/01/20 05/01/20 22:59 06:59 14:59 Intake Total 1096.667 / 1146.667 209.867 / 1356.534 Output Total 1005 / 1005 690 / 1695 Balance 91.667 / 141.667 -480.133 / -338.466 Physical Exam Neuro: OTHER: Neck incision is still covered with a surgical dressing which I left in place along with a NICHOLE drain as she currently is on heparin infusion. Moving all extremities spontaneously and to command. She is able to speak her name and answer basic questions and knows that she is in the hospital. We will resume the heparin at 12 cc as the last PTT was 180. Urinary Catheter Management^: Brantley: Cath Placed During This Visit: yes Reason for Continuing Indwelling Catheter: Accurate Measurement of Urinary Out put in Critically Ill Patients Urinary Catheter Date of Insertion: 04/30/20 Urinary Catheter Time of Insertion: 08:11 Data : 05/01/20 05:05 05/01/20 05:05 A&P Assessment and plan (1) CVA (cerebral vascular accident): Post carotid endarterectomy with occlusion at the operative site and collateralization. Plan: We will continue heparin infusion for another 24 hours. Awaiting speech and physical therapy evaluation. Hopefully will be able to resume oral intake later today. I greatly appreciate Dr. Fung's oversight and recommendations. I will continue to update the daughter. Status: Acute Attestations Medical Necessity Statement*: 1 day status post carotid endarterectomy with carotid occlusion Time Spent in Patient Care: 16 - 35 minutes Coding Level of Care Code Acute Compliance Investigator for jenni Fwstefani Diagnoses CVA (cerebral vascular accident) I63.9
[2020-05-01] MEDS: sodium chloride 0.9% 1,000 ML 125 ML IV ×2 (07:07→15:41)
[2020-05-01] MEDS: ceFAZolin 1,000 MG in sodium chloride 0.9% (plus) 50 ML 100 MG IV (07:50)
--- NOTE | 2020-05-01 09:16 | PC.NURSE ---
Pt aggitated with SCD's. requesting that they be removed.
--- NOTE | 2020-05-01 09:28 | PC.CHAP ---
Pastoral Care Encounter/Spiritual Assessment Type of Contact [] Declined archives specialist visit [] Patient/Family/Request visit [] Outpatient visit [] Follow-up visit [] Physician referral [] Code/Alert [x] Routine visit [] Staff referral [] Actively dying [] Patient sleeping [] Family support [] [] Out of room [] Palliative care [] [] Receiving care in room [] Pre-surgical visit [] Trauma [] Long length of stay [x] ICU visit [] Other: Relational/Emotional Strength [] Patient feels connected with others/family/visitors/staff [] Distress [] Loneliness/isolation [] Abandonment Spirituality of Patient [] Person of Barbara [] Attends Judaism of their Barbara [] Believes in Prayer [] Reads Bible or Jew materials [] There are Spiritual issues to be addressed Warehouse Consultant Interventions [x] Prayer [] Active listening [] Non-anxious presence [] Spiritual/emotional support [] Crisis/trauma care [] Spiritual counseling [] Bereavement support [] Provided bereavement packet [] Provided Bible/devotional materials [] Provided toy/stuffed animal, coloring book to patient or family member [] Provided Communion [] Anointing/[place] [] Salvation [x] Completed spiritual assessment [] Other: Impact on Illness or Injury [] Angry [] Fearful [] Anxious [] Often cries [] Exhaustion [] Unable to work [] Unable to attend methodist [] Unable to walk/stand [] Unable to read [] Unable to drive [] Unable to eat/drink [] Unable to sleep [] Unable to be with family [] Patient intubated [] Other: Summary Time spent with patient
--- NOTE | 2020-05-01 11:17 | PC.NURSE ---
Pt was up walking with PT when she got short of breath and dizzy. Bradley from Pt assisted her to a chair. She was unable to follow commands and seemed very confused when given simple instruction. Pupil were equal, she did smile and it was symmetrical. SBP 110. Dr. Cabrales notified. Instructed junior underwriter to let Dr. Fung know. She was called, no new orders other that to keep her flat on bedrest until she is able to come up and assess pt.
[2020-05-01] MEDS: propranolol 40 mg Tablet PO (11:47)
[2020-05-01] MEDS: amlodipine 5 mg Tablet 2.5 MG PO (11:47)
[2020-05-01] MEDS: aspirin 81 mg EC Tablet PO (11:48)
--- NOTE | 2020-05-01 12:00 | PC.NURSE ---
confirmed with speech that pt could take her oral medications.
--- NOTE | 2020-05-01 12:57 | PM.MISC ---
Miscellaneous Note Note: Alexander ambulated quite well in the ICU according to our nurses. She then developed some agitation and was placed back in the bed. She currently is in a recumbent position resting well during my noon visit with her daughter at bedside. Dr. Fung is aware and states she will evaluate later today. We will continue heparin infusion for at least another 24 hours. NICHOLE drain output remains low. Neurologic exam is about the same without any gross focal motor deficits. I greatly appreciate the expertise of Dr. Fung and of the efforts of our ICU nursing staff.
[2020-05-01 13:10] LABS: Partial Thromboplastin Time 206.4 SECONDS (23.9-36.7)
--- NOTE | 2020-05-01 13:13 | PC.NURSE ---
Critical PTT called to Dr. Mello. Awaiting orders
[2020-05-01 13:32] LABS: Glucose Point of Care 113 mg/dL (70-110)
--- NOTE | 2020-05-01 15:47 | PC.NURSE ---
Pt awake. Pupils are 2, she can track but wants to keep her eyes closed. Still refusing SCD's. Daughter at bedside and 1:1 sitter.
--- NOTE | 2020-05-01 16:59 | PC.NURSE ---
Called Marlene from speech per Dr. Cabrales to check recommendations for diet. He is awaiting her note in the chart.
--- NOTE | 2020-05-01 18:46 | PC.NURSE ---
Pt not following simple commands to open eyes or mouth for pills and to do assessments. Will open when food is touched to her lip. Able to vascular sonographer bilat hands when moving but when asked to do so she unable to do so.
[2020-05-01 20:39] LABS: Partial Thromboplastin Time 150.6 SECONDS (23.9-36.7)
--- NOTE | 2020-05-01 22:55 | PC.NURSE ---
Dr Cabrales notified that pt's ptt elevated at 150. Heparin drip adjusted per protocol per Dr. Cabrales. Also notified Dr. Cabrales that pt's oxygen requirements have increased. Chest xray ordered for a.m. Also notified that pt not verbalizing. Will continue to monitor.
[2020-05-02] VITALS (12 sets, daily range): BP systolic 143–171; BP diastolic 65–89; PULSE 58–71; RESP 15–22; TEMP 36.7–37.7; O2SAT 87–96
[2020-05-02] MEDS: sodium chloride 0.9% 1,000 ML 125 ML IV (00:19)
[2020-05-02 03:07] LABS: Basophils % 0.3 %; Eosinophils % 0.1 %; Hematocrit 36.2 % (37.0-47.0); Hemoglobin 11.8 g/dL (11.5-15.3); Lymphocytes # 0.9 10^3/uL (0.8-4.8); Mean Corpuscular HGB Conc 32.6 g/dL (30.0-36.0); Mean Corpuscular Hemoglobin 29.4 pg (28.0-34.0); Mean Platelet Volume 10.6 fL (7.4-10.4); Monocytes # 1.1 10^3/uL (0.2-0.9); Monocytes % 7.9 %; Neutrophils # 11.26 10^3/uL (1.8-7.7); Neutrophils % 84.3 %; Nucleated Red Blood Cells % 0 %; Platelet Count 177 10^3/cmm (130-400); Red Blood Count 4.02 10^6/uL (4.1-5.3); Red Cell Distribution Width 13.5 % (12.1-15.1); White Blood Count 13.4 10^3/uL (4.0-10.0)
[2020-05-02 03:49] LABS: Partial Thromboplastin Time 84.9 SECONDS (23.9-36.7)
[2020-05-02 03:50] LABS: Anion Gap 12.1 (5-19); Blood Urea Nitrogen 15 mg/dL (8-23); Calcium 7.8 mg/dL (8.5-10.5); Carbon Dioxide 23 mmol/L (22-29); Chloride 107 mmol/L (98-107); Creatinine Clr Calc Pharmacy 57.5521; Glucose 115 mg/dL (65-115); Osmolality Calculated 290 mOsm/kg (285-295); Potassium 3.1 mmol/L (3.5-5.1); Sodium 139 mmol/L (136-145)
--- NOTE | 2020-05-02 04:00 | XR_ITS ---
WS: [id number] Portable AP upright chest, 05/02/2020 Clinical Data: increased oxygen requirements Comparison: PA and lateral chest, 04/30/2020. Findings: There is patchy opacity throughout the right lung and in the left lower lobe. Small bilater al pleural effusions are present. The heart is slightly enlarged. Monitor leads are on the chest wall . XR/XR chest 1V portable [id number] Impression: 1. Bilateral patchy opacities most consistent with pneumonia. 2. Atherosclerosis and cardiomegaly. 3. Bilateral pleural effusions.
--- NOTE | 2020-05-02 06:45 | P.PN_ITS ---
Subjective Subjective: Interval history: Nurses report that Ms. Munoz rested well last night. I do note upon lab review this morning that she is hypokalemic with a slightly elevated white count and as well appears to be developing a potential right middle and lower lobe pneumonia. As Ms. Munoz is resting this morning, I did not awaken. Vitals/I&O/Wt Last Vital Signs Temp 98.7 F 05/02/20 04:00 Pulse 69 05/02/20 04:00 Resp 16 05/02/20 04:00 BP 157/82 05/02/20 04:00 Pulse Ox 88 L 05/02/20 04:00 05/01/20 05/01/20 05/02/20 14:59 22:59 06:59 Intake Total 0 / 0 1309.983 / 3519.217 8822.15 / 2390.133 Output Total 610 / 610 Balance 0 / 0 699.983 / 777.739 3920.15 / 1780.133 Weight last 48 hrs Weight 169 lb 12.095 oz Physical Exam Neck/C-Spine: OTHER: Neck remains soft with NICHOLE drain in position with low output Urinary Catheter Management^: Brantley: Cath Placed During This Visit: yes Reason for Continuing Indwelling Catheter: Accurate Measurement of Urinary Output in Critically Ill Patients Urinary Catheter Date of Insertion: 04/30/20 Urinary Catheter Time of Insertion: 08:11 Data : 05/02/20 02:52 05/02/20 02:52 A&P Assessment and plan (1) Carotid stenosis: Status post right carotid endarterectomy with carotid dissection. Hypokalemia with possibly developing hospital-acquired pneumonia. Plan: #1. DC IV heparin 2. 40 mEq potassium replacement 3. Zosyn 3.375 g IV every 6 hours; vancomycin for pharmacy dosing 4. I will plan to discontinue NICHOLE drain this afternoon 5. I will seek consultation with our hospitalist colleagues for medical management 6. I will confer with my neurology colleague Dr. Fung as to her current assessment 7. Respiratory therapy to evaluate and treat 8. Continue physical therapy and speech therapy evaluations and treatment 9. BMP at 2 PM today. 10. CBC/BMP/chest x-ray in a.m. 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
--- NOTE | 2020-05-02 08:10 | CT_ITS ---
WS: [id number] CT HEAD NONCONTRAST HISTORY: right sided weakness TECHNIQUE: Contiguous axial imaging performed through the brain in 2.5 mm imaging. Bone and soft tiss ue windows. Sagittal and coronal reformats reviewed. All CT scans at [facility] use at le ast one of these dose optimization techniques: automated exposure control; mA and/or kV adjustment pe r patient size (includes targeted exams where dose is matched to clinical indication); or iterative r econstruction. DLP: 849.42 mGy.cm COMPARISON: 04/30/2020 No acute intracranial hemorrhage, midline shift or mass effect. Mild atrophy and mild chronic microvascular ischemic disease. There may be a slight increase in amoun t of decreased attenuation in the subcortical LEFT parietal lobe. This may be a small subacute evolvi ng infarct. Ventricles: Normal size with no hydrocephalus. Paranasal sinuses: As visualized are clear. Mastoid air cells: Well pneumatized. Calvarium and scalp: Skull is intact with no soft tissue edema or swelling. CT/CT head wo con* [id number] IMPRESSION: 1. No acute intracranial hemorrhage or edema. 2. Possible small subacute evolving infarct in the LEFT parietal subcortical w emily matter.
--- NOTE | 2020-05-02 08:22 | PC.NURSE ---
On am assessment, pt was noted to have right sided weakness and facial droop. Requiring 6L/NC and o2 sat was 85 %. Call put in to Dr. Cabrales and Antonieta. Both presented to the floor and new orders received.
[2020-05-02] MEDS: FUROsemide 10 mg/mL SDV 2mL 20 MG IVP (08:28)
[2020-05-02] MEDS: piperacillin-tazobactam 3.375 GM in sodium chloride 0.9% (plus) 50 ML IV ×3 (08:28→23:31)
[2020-05-02] MEDS: lidocaine 1% 5 ML in potassium chloride premix 100 ML 25 ML IV (08:30)
[2020-05-02] MEDS: vancomycin 1,250 MG/250 ML PIGGYBACK 250 MG IV ×2 (08:33→19:37)
[2020-05-02] MEDS: sodium chloride 0.9% 1,000 ML 75 ML IV (08:34)
--- NOTE | 2020-05-02 08:37 | PC.NURSE ---
Pt is answering question appropriatly.
--- NOTE | 2020-05-02 09:23 | PC.CHAP ---
Pastoral Care Encounter/Spiritual Assessment Type of Contact [] Declined sterile tech visit [] Patient/Family/Request visit [] Outpatient visit [] Follow-up visit [] Physician referral [] Code/Alert [x] Routine visit [] Staff referral [] Actively dying [] Patient sleeping [] Family support [] [] Out of room [] Palliative care [] [] Receiving care in room [] Pre-surgical visit [] Trauma [] Long length of stay [x] ICU visit [] Other: Relational/Emotional Strength [] Patient feels connected with others/family/visitors/staff [] Distress [] Loneliness/isolation [] Abandonment Spirituality of Patient [] Person of Barbara [] Attends Bahai of their Barbara [] Believes in Prayer [] Reads Bible or Mandaeism materials [] There are Spiritual issues to be addressed Galvanizer Zinc Interventions [x] Prayer [] Active listening [] Non-anxious presence [] Spiritual/emotional support [] Crisis/trauma care [] Spiritual counseling [] Bereavement support [] Provided bereavement packet [] Provided Bible/devotional materials [] Provided toy/stuffed animal, coloring book to patient or family member [] Provided Communion [] Anointing/[place] [] Salvation [x] Completed spiritual assessment [] Other: Impact on Illness or Injury [] Angry [] Fearful [] Anxious [] Often cries [] Exhaustion [] Unable to work [] Unable to attend yazdanism [] Unable to walk/stand [] Unable to read [] Unable to drive [] Unable to eat/drink [] Unable to sleep [] Unable to be with family [] Patient intubated [] Other: Summary Time spent with patient
--- NOTE | 2020-05-02 09:52 | PC.NURSE ---
Old entry-Spoke with Pt Daughter, let her know that her right arm was weaker than the left and we would be doing another head CT on her this am.
[2020-05-02] MEDS: amlodipine 5 mg Tablet 2.5 MG PO (10:36)
[2020-05-02] MEDS: aspirin 81 mg EC Tablet PO (10:37)
--- NOTE | 2020-05-02 10:43 | PC.NURSE ---
Pt tolerated swallowing Norvasc and Aspirin in pudding. Became tired. Will attempt to administer remaining morning meds shortly if pt able to tolerate.
--- NOTE | 2020-05-02 11:01 | PM.CONSULT ---
Providers/Reason For Consult Consulting Physican/Specialty*: Eduardo Crespo MD, hospitalist Reason for Consult*: Medical management Attending Physician: Alejo Cabrales MD Primary Care Provider: Jakob Cole DO History of Present Illness History of Present Illness Dalila Munoz is a 79 year old female that was admitted for carotid endarterectomy on April 30. Surgery went well for her left carotid stenosis, with her having a left carotid endarterectomy and patch angioplasty. Vascular surgery was contacted on April 30 as nursing service noted lethargy and drooping of the right side of the face. Neurology was contacted immediately, and patient expeditiously had a CT scan of the head. NIH stroke scale performed by neurology was 8. Exam demonstrated receptive aphasia, right facial droop. Case was also discussed with Yair. Ultimately decision was made to anticoagulate, and that the patient was not a candidate for surgery such as embolectomy or thrombectomy. Today she is having a CT of head. Nursing alerts me she is having issues with right upper extremity paresis. Patient awakens easily but cannot answer any questions for an adequate history of present illness. There is also concern of right-sided pneumonia according to nurses. She is on 6 L of oxygen. Review of Systems General: Reports: ROS unobtainable due to mental status (Unable to obtain secondary to CVA and receptive aphasia) Meds/Allergies Home Medications and Allergies Home Medications Medication Instructions Recorded Confirmed Last Taken Type alprazolam 1 mg tablet 1 mg PO .at bedtime tab 12/13/19 04/30/20 04/29/20 History aspirin 81 mg tablet,delayed 81 mg PO DAILY 12/13/19 04/30/20 04/27/20 History release calcitonin (salmon) 200 1 spray INTRANASAL (ALT) DAILY 12/13/19 04/30/20 04/29/20 History unit/actuation nasal spray calcium 600 mg-D3 800 unit-mag11 1 tab PO BID 12/13/19 04/30/20 04/28/20 History 50 jc-cjyw-fpxlsp-mirian-s.borat tablet levothyroxine 88 mcg capsule 88 mcg PO DAILY 12/13/19 04/30/20 04/30/20 History multivitamin 1 tab PO DAILY 12/13/19 04/30/20 04/29/20 History phenazopyridine 95 mg tablet 95 mg PO TID PRN 12/13/19 04/30/20 04/29/20 History amlodipine 2.5 mg tablet 2.5 mg PO DAILY 30 Days #30 tab 01/23/20 04/30/20 04/30/20 Rx citalopram 10 mg tablet 10 mg PO DAILY 01/23/20 04/30/20 04/29/20 History lysine 500 mg tablet 500 mg PO DAILY 01/23/20 04/30/20 04/29/20 History magnesium oxide 400 mg PO DAILY 01/23/20 04/30/20 04/29/20 History oxybutynin chloride 5 mg tablet 5 mg PO DAILY 01/23/20 04/30/20 04/28/20 History sumatriptan 20 mg/actuation nasal 20 mg INTRANASAL Q2H PRN 01/23/20 04/24/20 Unknown History spray cholecalciferol (vitamin D3) 2,000 unit PO DAILY 04/24/20 04/30/20 04/29/20 History [Vitamin D3] vitamin E 400 unit PO DAILY 04/24/20 04/30/20 04/29/20 History propranolol 40 mg PO BID 04/30/20 04/30/20 04/30/20 History Allergies Allergy/AdvReac Type Severity Reaction Status Date / Time No Known Allergies Allergy Verified 03/26/20 11:46 Current Medications Current Medications Generic Name Dose Route Start Last Admin Trade Name Freq PRN Reason Stop Dose Admin Amlodipine Besylate 2.5 mg 05/01/20 09:00 05/01/20 11:47 Amlodipine 5 Mg Tablet PO 2.5 mg DAILY EMMANUEL Administration Amlodipine Besylate 2.5 mg 04/30/20 20:02 05/02/20 10:36 Amlodipine 5 Mg Tablet PO 2.5 mg DAILY EMMANUEL Administration Aspirin 81 mg 05/01/20 09:00 05/02/20 10:37 Aspirin 81 Mg Ec Tablet PO 81 mg DAILY EMMANUEL Administration Citalopram Hydrobromide 10 mg 05/01/20 09:00 05/01/20 11:46 Citalopram 20 Mg Tablet PO Not Given DAILY EMMANUEL Piperacillin Sod/Tazobactam 50 mls @ 12.5 mls/hr 05/02/20 08:30 05/02/20 08:28 Sod 3.375 gm/ Sodium Chloride IV 12.5 mls/hr Q8H EMMANUEL Administration Protocol Lidocaine HCl 5 ml/ Potassium 105 mls @ 25 mls/hr 05/02/20 07:15 05/02/20 08:30 Chloride IV 05/02/20 11:26 25 mls/hr ONCE ONE Administration Vancomycin/PEG/NADA/Lysine/Water 1,250 mg in 250 mls @ 250 mls/hr 05/02/20 07:00 05/02/20 08:33 Vancocin IV 250 mls/hr Q12H EMMANUEL Administration Sodium Chloride 1,000 mls @ 75 mls/hr 05/02/20 08:30 05/02/20 08:34 Sodium Chloride 0.9% IV 75 mls/hr .[id number] EMMANUEL Administration Levothyroxine Sodium 88 mcg 05/01/20 09:00 05/01/20 11:46 Levothyroxine 88 Mcg Tablet PO Not Given DAILY EMMANUEL Metoclopramide HCl 10 mg 04/30/20 22:49 04/30/20 22:56 Metoclopramide 5 Mg/Ml Sdv 2 Ml IVP 10 mg Q8H PRN Administration NAUSEA AND VOMITING Multivitamins Therapeutic 1 tab 05/01/20 09:00 05/01/20 11:45 Multivitamin Therapeutic Tablet PO Not Given DAILY [facility] Ondansetron HCl 4 mg 04/30/20 20:05 05/01/20 04:26 Ondansetron 2 Mg/Ml Sdv 2 Ml IVP 4 mg Q4H PRN Administration NAUSEA AND VOMITING Oxybutynin Chloride 5 mg 05/01/20 09:00 05/01/20 11:45 Oxybutynin 5 Mg Tablet PO Not Given DAILY [facility] Pantoprazole Sodium 40 mg 05/01/20 09:00 05/01/20 11:[address] 40 Mg Tablet PO Not Given DAILY [facility] Propranolol HCl 40 mg 04/30/20 18:00 05/01/20 19:08 Propranolol 40 Mg Tablet PO Not Given BID EMMANUEL PFSH Acute PFSH: Medical History Atrial arrhythmia EKG from 12/26/2019 revealed sinus rhythm with a frequent PACs in the form of couplets. Reviewed ST-T changes. Poor R wave progression. Possible left atrial enlargement. Benign essential HTN Carotid stenosis Cataract Heart murmur IBS (irritable bowel syndrome) Left ventricular diastolic dysfunction Migraines Mitral regurgitation Radiation thyroiditis Unsteadiness on feet Surgical History H/O: hysterectomy History of bilateral breast implants Family History Mother CAD (coronary artery disease) Stroke Sister Cancer Other Hypertension Denies family history of Diabetes Clotting disorder Dementia Chronic kidney disease (CKD) Suicide Anesthesia complication Bleeding disorder Lung disease Social History Smoking and tobacco status: never smoked Alcohol intake: never History of recent travel: No Vitals/I&O/Wt Last Vital Signs Temp 98.7 F 05/02/20 04:00 Pulse 67 05/02/20 09:50 Resp 20 H 05/02/20 09:50 BP 157/82 05/02/20 04:00 Pulse Ox 91 05/02/20 09:50 05/01/20 05/02/20 05/02/20 22:59 06:59 14:59 Intake Total 1309.983 / 7656.601 2299.15 / 2390.133 Output Total 610 / 610 2225 / 2225 Balance 699.983 / 580.923 7033.15 / 1780.133 -2225 / -2225 Weight last 48 hrs Weight 77 kg Physical Exam Narrative: EXAM NARRATIVE: General exam is a sleepy appearing white female, who will open eyes to verbal stimuli but appears to neglect the right side of her body. Neurologic exam: Gazes to the left. Right facial droop is noted. Right upper extremity paresis noted. Moving lower extremities without difficulty and on command. Some difficulty with verbalization. Neck supple no lymphadenopathy or thyromegaly Cardiovascular regular rate and rhythm without murmur Lungs a faint expiratory wheeze heard on the left and diminished breath sounds on the right Abdomen is soft with positive bowel sounds. No obvious organomegaly was deferred Extremities no cyanosis clubbing or edema Skin no rash Urinary Catheter Management^: Brantley: Cath Placed During This Visit: yes Reason for Continuing Indwelling Catheter: Accurate Measurement of Urinary Output in Critically Ill Patients Urinary Catheter Date of Insertion: 04/30/20 Urinary Catheter Time of Insertion: 08:11 Data Other Data: Other data: Chest x-ray demonstrates bilateral infiltrates and right-sided pleural effusion by my read. EKG I will order CT head demonstrates a subacute left parietal CVA CTA done April 30 demonstrated likely left ICA dissection A&P Assessment and plan (1) CVA (cerebral vascular accident): Status post left carotid endarterectomy April 30. Ultimately had neurologic change and findings consistent with left carotid dissection noted. Currently with a receptive aphasia, right upper extremity paresis, likely visual field defect. CT scan today demonstrating subacute left parietal CVA. She was initially anticoagulated with heparin which has been discontinued Allow for permissive hypertension the rest of today. She has been getting her propranolol which is to control heart rate as well. This will be continued with Norvasc will be held. Secondary to evidence of fluid overload on chest x-ray, 2/4 diastolic dysfunction on last echo fluid should be discontinued at this time Continue aspirin Add statin secondary to her underlying coronary disease. Status: Acute (2) Respiratory failure: Currently requiring 6 L. Concern of pneumonia, and also concern of fluid overload secondary to bilateral pleural effusions noted on chest x-ray. Lasix 20 mg IV given appropriately this morning. Will reassess this afternoon and if dose should be repeated Continue oxygen and wean as tolerated Appropriate antibiotics have been ordered. Status: Acute (3) Pneumonia: Continue vancomycin and Zosyn currently N.p.o. in case this is aspiration Continued assessment by speech therapy MRSA PCR so vancomycin could possibly be discontinued early if clinical improvement is made. Check pro calcitonin Status: Acute (4) Dissection of carotid artery: See notations under CVA Status: Acute (5) Hypokalemia: Supplementation ordered Check magnesium level blood in lab Status: Acute Additional A&P Information History of diastolic dysfunction with mild mitral valve regurgitation per echocardiogram January 2020. EF preserved. Hypertension History of migraine headaches Full code Heparin for DVT prophylaxis Consult Attestations Medical Necessity Statement: Needs continued hospitalization following CVA for aggressive inpatient care, adjustment of medications and rehabilitation. 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
--- NOTE | 2020-05-02 11:20 | ECG_ITS ---
[facility] Test Date: 2020-05-02 Pat Name: Dalila Munoz Department: Room: ICU10 Gender: Female Quality Assurance Test Program Manager: : 1940 Requested By: Eduardo Bruce Order Number: [id number] Tenzin MD: Ana Brock M.D. Measurements Intervals [place] Rate: 73 P: 32 TX: 139 QRS: 53 QRSD: 81 T: 12 QT: 409 QTc: 452 Interpretive Statements SINUS RHYTHM WITH SINUS ARRHYTHMIA LOW QRS VOLTAGE IN PRECORDIAL LEADS [QRS DEFLECTION < 1.0 mV IN CHEST LEADS] POSSIBLE ANTERIOR MYOCARDIAL INFARCTION [30 ms Q WAVE IN V3/V4, OR R < 0.2 mV IN V4], PROBABLY OLD Poor R wave progression No previous ECG available for comparison Electronically Signed On 05-02-2020 20:19:07 ELECTRICAL CONTROLS ASSEMBLER by Ana Brock M.D. [email or web address]
[2020-05-02 12:07] LABS: Procalcitonin 0.07 ng/mL (0-0.5)
[2020-05-02 12:18] LABS: Magnesium 1.8 mg/dL (1.7-2.3)
[2020-05-02] MEDS: heparin 5,000 unit/mL INJ 1 mL 5000 UNIT SUBCUT ×2 (13:13→23:28)
--- NOTE | 2020-05-02 13:13 | PM.MISC ---
Miscellaneous Note Note: I spoke with Ms. Munoz's daughter at bedside. Update to current information was provided. Speech evaluation continues with planned formal speech study this afternoon. Continue occupational and physical therapy rehabilitation as well. I will plan to remove NICHOLE drain later this afternoon after an appropriate interval since her heparin was discontinued this morning. I greatly appreciate the oversight expertise of Dr. Fung, Dr. Crespo, ICU nursing staff, as well as our occupational, physical therapy and speech consultants.
[2020-05-02 15:02] LABS: Anion Gap 13.4 (5-19); Blood Urea Nitrogen 14 mg/dL (8-23); Calcium 8.1 mg/dL (8.5-10.5); Carbon Dioxide 22 mmol/L (22-29); Chloride 103 mmol/L (98-107); Creatinine Clr Calc Pharmacy 57.5521; Glucose 128 mg/dL (65-115); Osmolality Calculated 282 mOsm/kg (285-295); Potassium 3.4 mmol/L (3.5-5.1); Sodium 135 mmol/L (136-145)
[2020-05-02] MEDS: lanolin oint 7 gm 1 APPLIC TOPICAL (16:08)
[2020-05-02] MEDS: famotidine 20 mg/2 mL INJ IVP (16:09)
--- NOTE | 2020-05-02 16:20 | PC.NURSE ---
Dr Cabrales at bedside. Pulled NICHOLE drain. Pt tolerated well.
--- NOTE | 2020-05-02 17:12 | PM.PN ---
Subjective Subjective: Interval history: She has gradually deteriorated over the last 24 hours despite bedrest and IV fluids. She went into congestive heart failure early this morning and responded to 20 mg of Lasix and to pick the bed up. I conversed with Marlene from speech therapy that yesterday she was able to swallow with a bedside swallowing test but she is not cooperative today and should not be taking p.o. It would not be good for her to have a modified barium swallow at this point because we are trying to keep her close to flat in the bed. Vitals/I&O/Wt Last Vital Signs Temp 98.0 F 05/02/20 16:00 Pulse 65 05/02/20 16:00 Resp 15 05/02/20 16:00 BP 168/65 05/02/20 16:00 Pulse Ox 91 05/02/20 09:50 05/02/20 05/02/20 05/02/20 06:59 14:59 22:59 Intake Total 1080.15 / 2390.133 50 / 50 Output Total 2225 / 2225 Balance 1080.15 / 1780.133 -2175 / -2175 Weight last 48 hrs Weight 169 lb 12.095 oz Physical Exam Narrative: EXAM NARRATIVE: Mental status exam: She would open her eyes to stimulation and did not exhibit a gaze preference. She tended to regard the nurse on her left side a little more than she regarded me on the right but she ignored all of us. She is not following commands. Cranial nerves: She is managing her secretions. She does not respond to threat in the right hemifield as well as she does on the left. Trace flattening of the right nasolabial fold. Motor: She has drift of the right arm and leg but still has significant strength on the right. Sensation: She withdraws from a gentle pinch on the right. Urinary Catheter Management^: Brantley: Cath Placed During This Visit: yes Reason for Continuing Indwelling Catheter: Accurate Measurement of Urinary Output in Critically Ill Patients Urinary Catheter Date of Insertion: 04/30/20 Urinary Catheter Time of Insertion: 08:11 Data : 05/02/20 02:52 05/02/20 14:30 A&P Assessment and plan (1) Left carotid artery occlusion: Status: Acute (2) Acute left arterial ischemic stroke, ICA (internal carotid artery): This is an 79-year-old woman with severe stenosis of the left carotid artery who unfortunately developed an intimal tear with carotid dissection resulting in left carotid occlusion following endarterectomy. She was not a candidate for procedural treatment for the fear of further reducing flow intracranially by driving blood clots from the carotid into the left middle cerebral artery. Management with heparin and IV fluids unfortunately has not prevented progression of ischemia in the left hemisphere and she has worsening global aphasia at this point and symptoms of motor involvement in left middle cerebral artery territory. Plan to continue gingerly giving her IV fluids at a lower rate, avoid hypotension, and for now keep her pretty much in the bed. She can do physical therapy in the bed. We cannot do a swallowing study at this time so she remains n.p.o. It would be reasonable at this point to add Lovenox to prevent DVT. Discussed with Dr. Cabrales. I reviewed her CT scan of the head this afternoon. She has slight lucency in the path of the posterior branch of the left middle cerebral artery. None of the arteries appears dense within the [place] or middle cerebral artery branches, which is encouraging. I visited with Marlene from speech therapy and we will continue to monitor her level of alertness hoping to accomplish a swallowing study. 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
--- NOTE | 2020-05-02 19:11 | PC.NURSE ---
Pt's HR 58; BP 140/57. Propranolol 40mg ordered at this time. ordered med held.
[2020-05-03] VITALS (10 sets, daily range): BP systolic 144–174; BP diastolic 54–86; PULSE 64–79; RESP 16–21; TEMP 36.9; O2SAT 90–96
[2020-05-03] MEDS: famotidine 20 mg/2 mL INJ IVP ×2 (01:24→14:44)
--- NOTE | 2020-05-03 03:56 | PC.NURSE ---
This nurse assumed care [id number]
[2020-05-03 05:42] LABS: Basophils % 0.4 %; Eosinophils % 0.3 %; Hematocrit 35.3 % (37.0-47.0); Hemoglobin 11.4 g/dL (11.5-15.3); Lymphocytes # 0.9 10^3/uL (0.8-4.8); Lymphocytes % 8.3 %; Mean Corpuscular HGB Conc 32.3 g/dL (30.0-36.0); Mean Corpuscular Hemoglobin 29.2 pg (28.0-34.0); Mean Corpuscular Volume 90.3 fL (81-99); Mean Platelet Volume 11.3 fL (7.4-10.4); Monocytes % 9.5 %; Neutrophils # 8.86 10^3/uL (1.8-7.7); Neutrophils % 80.9 %; Nucleated Red Blood Cells % 0 %; Platelet Count 162 10^3/cmm (130-400); Red Blood Count 3.91 10^6/uL (4.1-5.3); Red Cell Distribution Width 13.3 % (12.1-15.1)
[2020-05-03] MEDS: vancomycin 1,250 MG/250 ML PIGGYBACK 250 MG IV ×2 (06:00→20:25)
--- NOTE | 2020-05-03 06:00 | XR_ITS ---
WS: [id number] Portable AP supine chest, 05/03/2020 Clinical Data: Status post carotid endarterectomy with developing infiltrat Comparison: Portable chest, 05/02/2020 Findings: The patchy opacity throughout the right lung has diminished slightly. There is patchy opaci ty in the central portion left upper lobe and also in the lingula. The heart is enlarged. There may b e a right pleural effusion. The aortic arch and descending aorta are tortuous. There are moderately c hest wall. XR/XR chest 1V portable [id number] Impression: 1. Minimal clearing of patchy opacity in the right lung. 2. No change in the opacities in left lung. 3. No change in cardiomegaly. 4. Probable right pleural effusion.
--- NOTE | 2020-05-03 06:04 | P.PN_ITS ---
Subjective Subjective: Interval history: Nurses report that Ms. Munoz rested well last night and agitation. She did converse with the nurses. Her daughter stated that she did also converse with her and appeared to verbalize a bit more than previously with more complete sentences. She was asleep on my rounds this morning. Count is down to 11,000 this morning. She remains afebrile. Chemistries are pending this morning. Chest x-ray this morning reveals decreased bilateral effusions and some modest clearing of particularly opacification of the right lower lobe. Have allowed passive hypertension. Blood pressure systolic is 170 this morning with a heart rate of 65. Her daughter reports that Ms. Munoz drank 2 glasses of water with Occupational Therapy present and appeared to have no difficulties or evidence for aspiration. I removed the NICHOLE drain yesterday evening and changed her surgical dressing. Incision remains clean and dry without evidence for hematoma or fluid collection IV heparin has been transitioned to Lovenox Vitals/I&O/Wt Last Vital Signs Temp 98.0 F 05/02/20 16:00 Pulse 64 05/03/20 03:00 Resp 18 05/03/20 03:00 BP 158/86 05/03/20 03:00 Pulse Ox 95 05/03/20 03:00 05/02/20 05/02/20 05/03/20 14:59 22:59 06:59 Intake Total 1437.5 / 1437.5 300 / 1737.5 50 / 1787.5 Output Total 2225 / 2225 550 / 2775 Balance -787.5 / -787.5 300 / -487.5 -500 / -987.5 Weight last 48 hrs Weight 169 lb 12.095 oz Physical Exam Resp: COMMON NORMALS: normal respiratory effort, No retractions and No use of accessory muscles Cardio: COMMON NORMALS: regular rate, regular rhythm and S1 normal heart sound present RATE: regular rate RHYTHM: regular rhythm HEART SOUNDS: S1 normal heart sound present Urinary Catheter Management^: Brantley: Cath Placed During This Visit: yes Reason for Continuing Indwelling Catheter: Accurate Measurement of Urinary Ou tput in Critically Ill Patients Urinary Catheter Date of Insertion: 04/30/20 Urinary Catheter Time of Insertion: 08:11 Data : 05/03/20 04:17 05/02/20 14:30 A&P Assessment and plan (1) Acute left arterial ischemic stroke, ICA (internal carotid artery): Status post left carotid endarterectomy with postop dissection and occlusion. Postop pneumonia, improving Plan: Awaiting speech evaluation with swallowing study Greatly appreciate the expertise of our support services, Dr. Crespo and Dr. Fung. Status: Acute Attestations Medical Necessity Statement*: Status post carotid endarterectomy; status post CVA Time Spent in Patient Care: less than 15 minutes Coding Level of Care Code Acute Supervisor Litharge for [facility] Diagnoses Acute left arterial ischemic stroke, ICA (internal carotid artery) I63.232
[2020-05-03 06:14] LABS: Blood Urea Nitrogen 20 mg/dL (8-23); Calcium 8.2 mg/dL (8.5-10.5); Carbon Dioxide 23 mmol/L (22-29); Chloride 106 mmol/L (98-107); Creatinine Clr Calc Pharmacy 57.5521; Glucose 96 mg/dL (65-115); Osmolality Calculated 290 mOsm/kg (285-295); Sodium 139 mmol/L (136-145)
--- NOTE | 2020-05-03 09:39 | P.PN_ITS ---
Subjective Subjective: Interval history: Dalila is much more alert today. She is moving all her extremities. She is verbal. She appears to have some word finding difficulty with conversation. She denies any pain. There is no shortness of breath voiced. Medications: Reviewed: Yes Vitals/I&O/Wt Last Vital Signs Temp 98.0 F 05/02/20 16:00 Pulse 64 05/03/20 05:00 Resp 18 05/03/20 03:00 BP 158/86 05/03/20 03:00 Pulse Ox 95 05/03/20 03:00 05/02/20 05/03/20 05/03/20 22:59 06:59 14:59 Intake Total 300 / 1737.5 50 / 1787.5 250 / 250 Output Total 1400 / 3625 Balance 300 / -487.5 -1350 / -1837.5 250 / 250 Physical Exam Narrative: EXAM NARRATIVE: General exam is an alert female, in no apparent distress Neurologic exam: Moving all 4 extremities. No gaze preference. No neglect. On visual field testing no obvious deficit. Still with some aphasia, but significantly improved from yesterday. Neck supple no lymphadenopathy or thyromegaly Cardiovascular regular rate and rhythm without murmur Lungs diminished breath sounds at the bases but improved from yesterday. Abdomen is soft with positive bowel sounds. No obvious organomegaly was deferred Extremities no cyanosis clubbing or edema Skin no rash Urinary Catheter Management^: Brantley: Cath Placed During This Visit: yes Reason for Continuing Indwelling Catheter: Accurate Measurement of Urinary Output in Critically Ill Patients Urinary Catheter Date of Insertion: 04/30/20 Urinary Catheter Time of Insertion: 08:11 Data : 05/03/20 04:17 05/03/20 04:17 A&P Assessment and plan (1) CVA (cerebral vascular accident): Status post left carotid endarterectomy April 30. Ultimately had neurologic change and findings consistent with left carotid dissection noted. May 03 had receptive aphasia, right upper extremity paresis. Today is markedly improved. CT scan today demonstrating subacute left parietal CVA. Symptoms have had some waxing and waning. She was initially anticoagulated with heparin which has been discontinued Continue heparin subcutaneous for DVT prophylaxis Continue to allow permissive hypertension. Norvasc and propranolol discontinued. Discussed briefly with neurology. Overall the thinking is to allow permissive hypertension for several weeks. Propranolol may need to be added back, if beta-juliano withdrawal is noted(tachycardia, rebound hyperten jose de jesus) Continue aspirin and statin Swallowing much better. Diet initiated along with continued rehabilitation per speech therapy Physical therapy will get up in a chair today. If remains neurologically stable may slowly increase activity. Status: Acute (2) Respiratory failure: Currently requiring 4 L. Concern of pneumonia, and also concern of fluid overload secondary to bilateral pleural effusions noted on chest x-ray. She has been placed on vancomycin and Zosyn which is appropriate, and we are awaiting an MRSA PCR. Lasix was given yesterday. She appears to be stable currently and no further dose needed at this time. Reduce fluids to 50 cc an hour Wean oxygen as tolerated Initiate incentive spirometry Status: Acute (3) Pneumonia: Continue vancomycin and Zosyn currently Await MRSA PCR Status: Acute (4) Dissection of carotid artery: See notations under CVA Status: Acute (5) Hypokalemia: Supplement Status: Acute Additional A&P Information History of diastolic dysfunction with mild mitral valve regurgitation per echocardiogram January 2020. EF preserved. Hypertension History of migraine headaches Full code Heparin for DVT prophylaxis Attestations Medical Necessity Statement*: Needs continued hospital stay secondary to CVA. Coding Level of Care Code Acute Automotive Alignment Specialist for [facility] Diagnoses CVA (cerebral vascular accident) I63.9 Respiratory failure J96.90 Pneumonia J18.9 Dissection of carotid artery I77.71 Hypokalemia E87.6
[2020-05-03] MEDS: potassium chloride ER 20 mEq Tablet 40 MEQ PO (09:57)
[2020-05-03] MEDS: aspirin 81 mg EC Tablet PO (09:58)
[2020-05-03] MEDS: oxybutynin 5 mg Tablet PO (09:58)
[2020-05-03] MEDS: piperacillin-tazobactam 3.375 GM in sodium chloride 0.9% (plus) 50 ML IV ×3 (09:58→23:46)
[2020-05-03] MEDS: multivitamin therapeutic Tablet 1 TAB PO (09:59)
[2020-05-03] MEDS: sodium chlor 0.9% + KCl 20 mEq 20 MEQ/1,000 ML BAG 50 MEQ IV (09:59)
[2020-05-03] MEDS: citalopram 20 mg Tablet 10 MG PO (09:59)
[2020-05-03] MEDS: levothyroxine 88 mcg Tablet PO (09:59)
--- NOTE | 2020-05-03 10:54 | PC.SOCIAL ---
IMM Update Pg. 2 of IMM updated and reviewed with patient's daughter over the phone, who verbalized understanding. Copy provided to patient.
[2020-05-03] MEDS: heparin 5,000 unit/mL INJ 1 mL 5000 UNIT SUBCUT ×2 (12:20→23:46)
--- NOTE | 2020-05-03 15:14 | P.PN_ITS ---
Subjective Subjective: Interval history: She was watching television when I entered the room. She followed commands. She was mildly confused and while I was standing outside of the room afterwards she tried to climb out of bed. She is not complaining of headache. She says she feels well. Vitals/I&O/Wt Last Vital Signs Temp 98.0 F 05/02/20 16:00 Pulse 71 05/03/20 10:55 Resp 16 05/03/20 10:55 BP 158/86 05/03/20 03:00 Pulse Ox 96 05/03/20 10:55 05/03/20 05/03/20 05/03/20 06:59 14:59 22:59 Intake Total 50 / 1787.5 800 / 800 Output Total 1400 / 3625 500 / 500 Balance -1350 / -1837.5 300 / 300 Physical Exam Narrative: EXAM NARRATIVE: GENERAL: She looks far younger than her age. She was polite and cooperative MENTAL STATUS: She thought the month might be August. She knew the month of her but it took her a while to think of it. She did not know her age. 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 She thought it was high school. She knew her daughter's name but not what she did for living. She could repeat a simple phrase and a complex phrase accurately. She exhibits moderate word searching and spontaneous speech. CRANIAL NERVES: Visual drew were full to confrontation, direct and consensual. Extraocular movements were full without nystagmus. PERRLA. Face was symmetric at rest and with grimace. The left side of the face was slightly swollen inferiorly from her surgical scar but otherwise her face was symmetric. Tongue and palate were midline at rest and with protrusion of the tongue and elevation of the palate. Her shoulders moved well. MOTOR: There was no drift of the extended arms. Fine movements in the hands were symmetric. She could lift each of the legs from the bed. SENSATION: Touch intact distally in the 4 extremities COORDINATION: No cerebellar signs on reaching in any of the 4 extremities DEEP TENDON REFLEXES: 2/4 throughout. GAIT: Not tested CARDIOVASCULAR: The heart sounds were normal without murmur or gallop. Regular rate and rhythm. Urinary Catheter Management^: Brantley: Cath Placed During This Visit: yes, but has since been removed by the nurse Reason for Continuing Indwelling Catheter: Accurate Measurement of Urinary Output in Critically Ill Patients Urinary Catheter Date of Insertion: 04/30/20 Urinary Catheter Time of Insertion: 08:11 Date Urinary Catheter Removed: 05/03/20 Time Urinary Catheter Discontinued: 11:00 Data : 05/03/20 04:17 05/03/20 04:17 A&P Assessment and plan (1) Acute left arterial ischemic stroke, ICA (internal carotid artery): Procedure note: Bedside swallowing test was performed with the assistance of the nurse. The patient was elevated to 90 degrees sitting upright and was given 10 mL of water. She was able to sip the water, then drink without showing any signs of aspiration. This patient had severe signs of left carotid ischemia yesterday with weakness on the right side as well as global aphasia. She has an open upper [place] of [place] based on CTA that was performed on arrival. It remains important to keep her blood pressure slightly on the high side. I think we should be jose rafael about her activities. She should be able to get up to the bedside today but I would not initiate walking until tomorrow if she is doing well. Continue to maintain permissive hypertension for the next several weeks. Discussed with Dr. Cabrales and Dr. Crespo. Status: Acute (2) Left carotid artery occlusion: Status: Acute (3) Dissection of carotid artery: Status: Acute Attestations Medical Necessity Statement*: Left carotid occlusion with stroke Time Spent in Patient Care: 16 - 35 minutes Coding Level of Care Code Acute Civil Litigation Attorney for [facility] Diagnoses Acute left arterial ischemic stroke, ICA (internal carotid artery) I63.232 Left carotid artery occlusion I65.22 Dissection of carotid artery I77.71
[2020-05-03 20:00] LABS: Vancomycin Trough 12.4 ug/mL (10-15)
--- NOTE | 2020-05-03 20:09 | PC.NURSE ---
Awaiting Vanco trough result prior to administering vanco. Notified Lab of result not being present, lab stated the result is still pending. Lab drawn at 1833.
[2020-05-03] MEDS: acetaminophen 325 mg Tablet 650 MG PO (20:14)
[2020-05-03] MEDS: atorvastatin 40 mg Tablet PO (20:14)
[2020-05-04] VITALS (22 sets, daily range): BP systolic 135–206; BP diastolic 59–95; PULSE 60–91; RESP 15–26; TEMP 36.4–37; O2SAT 82–96
[2020-05-04] MEDS: famotidine 20 mg/2 mL INJ IVP ×2 (01:38→13:48)
[2020-05-04 04:25] LABS: Basophils # 0.1 10^3/uL (0.0-0.1); Basophils % 0.7 %; Eosinophils # 0.3 10^3/uL (0.0-0.8); Hematocrit 34.9 % (37.0-47.0); Hemoglobin 11.5 g/dL (11.5-15.3); Lymphocytes # 1.1 10^3/uL (0.8-4.8); Lymphocytes % 11.9 %; Mean Corpuscular Hemoglobin 29.8 pg (28.0-34.0); Mean Corpuscular Volume 90.4 fL (81-99); Mean Platelet Volume 10.4 fL (7.4-10.4); Monocytes # 0.8 10^3/uL (0.2-0.9); Monocytes % 8.3 %; Neutrophils # 6.94 10^3/uL (1.8-7.7); Neutrophils % 75.4 %; Nucleated Red Blood Cells % 0 %; Platelet Count 173 10^3/cmm (130-400); Red Blood Count 3.86 10^6/uL (4.1-5.3); Red Cell Distribution Width 13.4 % (12.1-15.1); White Blood Count 9.2 10^3/uL (4.0-10.0)
[2020-05-04 04:54] LABS: Alanine Aminotransferase 12 U/L (0-33); Albumin Level 2.7 g/dL (3.5-5.2); Alkaline Phosphatase 77 IU/L (35-105); Anion Gap 13.1 (5-19); Aspartate Amino Transferase 16 U/L (0-32); Blood Urea Nitrogen 18 mg/dL (8-23); Calcium 8.1 mg/dL (8.5-10.5); Carbon Dioxide 22 mmol/L (22-29); Chloride 107 mmol/L (98-107); Globulin 2.7 g/dL (1.3-4.6); Glucose 105 mg/dL (65-115); Magnesium 1.9 mg/dL (1.7-2.3); Osmolality Calculated 290 mOsm/kg (285-295); Potassium 3.1 mmol/L (3.5-5.1); Sodium 139 mmol/L (136-145); Total Bilirubin 0.9 mg/dL (0.15-1.2); Total Protein 5.4 g/dL (6.6-8.7)
[2020-05-04 05:14] LABS: Creatinine Clr Calc Pharmacy 57.5521
[2020-05-04] MEDS: sodium chlor 0.9% + KCl 20 mEq 20 MEQ/1,000 ML BAG 50 MEQ IV (05:49)
[2020-05-04] MEDS: vancomycin 1,250 MG/250 ML PIGGYBACK 250 MG IV ×2 (06:09→20:02)
--- NOTE | 2020-05-04 06:28 | PM.PN ---
Subjective Subjective: Interval history: Nursing service reports Ms. Munoz rested well last night. She is awake on my rounds this morning and conversing freely without dysarthria or hesitation. She is alert and oriented. She sat up in a chair twice last night without difficulties. There is no chest x-ray available this morning. White count is down to 9000. She is noted to be hypokalemic at 3.1. Intake and output is about even. Vitals/I&O/Wt Last Vital Signs Temp 98.6 F 05/04/20 04:00 Pulse 65 05/04/20 06:00 Resp 20 H 05/04/20 06:00 BP 176/79 05/04/20 06:00 Pulse Ox 93 05/04/20 06:00 05/03/20 05/03/20 05/04/20 14:59 22:59 06:59 Intake Total 800 / 800 550 / 1350 991.667 / 2341.667 Output Total 500 / 500 950 / 1450 525 / 1975 Balance 300 / 300 -400 / -100 466.667 / 366.667 Physical Exam Neck/C-Spine: COMMON NORMALS: supple (I will remove surgical dressing this afternoon.) Cardio: COMMON NORMALS: regular rhythm and S1 normal heart sound present RHYTHM: regular rhythm HEART SOUNDS: S1 normal heart sound present Extremity: COMMON NORMALS: no clubbing, cyanosis or edema Urinary Catheter Management^: Brantley: Cath Placed During This Visit: yes, but has since been removed by the nurse Reason for Continuing Indwelling Catheter: Accurate Measurement of Urinary Output in Critically Ill Patients Urinary Catheter Date of Insertion: 04/30/20 Urinary Catheter Time of Insertion: 08:11 Date Urinary Catheter Removed: 05/03/20 Time Urinary Catheter Discontinued: 11:00 Data : 05/04/20 04:15 05/04/20 04:15 A&P Assessment and plan (1) Left carotid artery occlusion: Now 4 days status post left carotid endarterectomy with postop dissection and thrombosis. Continued neurologic recovery to near baseline. We are continue with hydration and slowly advancing activity. Appreciate medical direction of Dr. Crespo and his hospitalist service as well as neurological direction by Dr. Fung. I will obtain a chest x-ray in a.m. Status: Acute Attestations Medical Necessity Statement*: Status post endarterectomy with postop dissection and thrombosis Time Spent in Patient Care: less than 15 minutes Coding Level of Care Code Acute Parachutist/Combatant Diver Qualified for [facility] Diagnoses Left carotid artery occlusion I65.22
[2020-05-04] MEDS: piperacillin-tazobactam 3.375 GM in sodium chloride 0.9% (plus) 50 ML IV ×2 (07:35→17:19)
[2020-05-04] MEDS: multivitamin therapeutic Tablet 1 TAB PO (09:22)
[2020-05-04] MEDS: potassium chloride ER 20 mEq Tablet 40 MEQ PO (09:22)
[2020-05-04] MEDS: oxybutynin 5 mg Tablet PO (09:22)
[2020-05-04] MEDS: levothyroxine 88 mcg Tablet PO (09:22)
[2020-05-04] MEDS: citalopram 20 mg Tablet 10 MG PO (09:22)
[2020-05-04] MEDS: aspirin 81 mg EC Tablet PO (09:22)
[2020-05-04] MEDS: heparin 5,000 unit/mL INJ 1 mL 5000 UNIT SUBCUT (11:11)
--- NOTE | 2020-05-04 12:24 | P.PN_ITS ---
Subjective Subjective: Interval history: Dalila continues to do well. She was able to get up with physical therapy today. Medications: Reviewed: Yes Vitals/I&O/Wt Last Vital Signs Temp 97.6 F 05/04/20 08:00 Pulse 67 05/04/20 10:00 Resp 24 H 05/04/20 10:00 BP 181/80 05/04/20 10:00 Pulse Ox 93 05/04/20 10:00 05/03/20 05/04/20 05/04/20 22:59 06:59 14:59 Intake Total 550 / 1350 1041.667 / 2391.667 500 / 500 Output Total 950 / 1450 525 / 1975 500 / 500 Balance -400 / -100 516.667 / 416.667 0 / 0 Physical Exam Narrative: EXAM NARRATIVE: General exam is an alert female conversant with no distress. Some receptive aphasia but again improved from yesterday. Neurologic exam: Moving all 4 extremities. Slight right facial droop and some receptive aphasia but otherwise again markedly improved. Neck supple no lymphadenopathy or thyromegaly Cardiovascular regular rate and rhythm without murmur Lungs diminished breath sounds at the bases but improved from yesterday. Abdomen is soft with positive bowel sounds. No obvious organomegaly was deferred Extremities no cyanosis clubbing or edema Skin no rash Urinary Catheter Management^: Brantley: Cath Placed During This Visit: yes, but has since been removed by the nurse Reason for Continuing Indwelling Catheter: Accurate Measurement of Urinary Output in Critically Ill Patients Urinary Catheter Date of Insertion: 04/30/20 Urinary Catheter Time of Insertion: 08:11 Date Urinary Catheter Removed: 05/03/20 Time Urinary Catheter Discontinued: 11:00 Data : 05/04/20 04:15 05/04/20 04:15 A&P Assessment and plan (1) CVA (cerebral vascular accident): Status post left carotid endarterectomy April 30. Ultimately had neurologic change and findings consistent with left carotid dissection noted. May 03 had receptive aphasia, right upper extremity paresis. Again markedly improved today.. CT scan today demonstrating subacute left parietal CVA. Symptoms have had some waxing and waning. She was initially anticoagulated with heparin which has been discontinued Currently on heparin subcutaneous for DVT prophylaxis Continue to allow permissive hypertension. Norvasc and propranolol discontinued. Discussed briefly with neurology. Overall the thinking is to allow permissive hypertension for several weeks. Propranolol may need to be added back, if beta-juliano withdrawal is noted(tachycardia, rebound hypertension). Continue aspirin and statin Diet initiated along with continued rehabilitation per speech therapy. No difficulty currently. Status: Acute (2) Respiratory failure: Oxygen has been weaned down to 2 L. Concern of pneumonia, and also concern of fluid overload secondary to bilateral pleural effusions noted on chest x-ray. She has been placed on vancomycin and Zosyn which is appropriate, and we are awaiting an MRSA PCR. If negative, may discontinue vancomycin Wean oxygen as tolerated Initiate incentive spirometry Status: Acute (3) Pneumonia: Continue vancomycin and Zosyn currently Await MRSA PCR Status: Acute (4) Dissection of carotid artery: See notations under CVA Status: Acute (5) Hypokalemia: Supplement Status: Acute Additional A&P Information History of diastolic dysfunction with mild mitral valve regurgitation per echocardiogram January 2020. EF preserved. Hypertension History of migraine headaches Full code Heparin for DVT prophylaxis Continue to work with physical therapy. From a medicine standpoint could transition to second floor with telemetry. 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
--- NOTE | 2020-05-04 14:17 | PC.NURSE ---
Pt transferred from ICU to med-surg via w/c with o2 in place via n/c at 3L. Assisted patient to bed. Informed staff of patient arrival to the floor. Stable at time of transfer. Family at bedside.
--- NOTE | 2020-05-04 14:31 | NUR.SHIFT ---
Pt arrived to floor from ICU. Assessed pt, see documentation. Neuro check done at this time. Pt alert to person and place. Daughter at bedside. Call light in reach. No other needs at this time.
[2020-05-04] MEDS: atorvastatin 40 mg Tablet PO (20:05)
[2020-05-05] VITALS (13 sets, daily range): BP systolic 164–204; BP diastolic 66–96; PULSE 68–88; RESP 18–22; TEMP 36.6–37.2; O2SAT 90–96
[2020-05-05] MEDS: piperacillin-tazobactam 3.375 GM in sodium chloride 0.9% (plus) 50 ML IV ×3 (00:19→16:58)
[2020-05-05] MEDS: heparin 5,000 unit/mL INJ 1 mL 5000 UNIT SUBCUT ×3 (00:28→23:38)
[2020-05-05] MEDS: famotidine 20 mg/2 mL INJ IVP ×2 (02:48→13:28)
[2020-05-05 05:23] LABS: Anion Gap 13.3 (5-19); Blood Urea Nitrogen 13 mg/dL (8-23); Calcium 8.4 mg/dL (8.5-10.5); Carbon Dioxide 25 mmol/L (22-29); Chloride 107 mmol/L (98-107); Glucose 107 mg/dL (65-115); Osmolality Calculated 295 mOsm/kg (285-295); Potassium 3.3 mmol/L (3.5-5.1); Sodium 142 mmol/L (136-145)
[2020-05-05] MEDS: sodium chlor 0.9% + KCl 20 mEq 20 MEQ/1,000 ML BAG 50 MEQ IV (05:54)
--- NOTE | 2020-05-05 06:00 | XRR_ITS ---
PROCEDURE INFORMATION: Exam: XR Chest, 1 View Exam date and time: 05/05/2020 5:47 AM Age: 79 years old Clinical indication: Prior surgery; Patient HX: F/u pneumonia development S/P endarterectomy; Additional info: Right lower lobe infiltrate with effusion TECHNIQUE: Imaging protocol: XR of the chest Views: 1 view. COMPARISON: CR XR chest 1V portable [id number] 05/03/2020 5:13 AM FINDINGS: Lungs: Improving bilateral airspace opacities and small left pleural effusion. Possible trace right pleural effusion. No pneumothorax. Pleural spaces: See Lungs finding. Heart/Mediastinum: Stable cardiomediastinal silhouette. Bones/joints: Degenerative changes of the spine seen. XR/XR chest 1V portable [id number] IMPRESSION: Improving bilateral airspace opacities and small left pleural effusion. Possible small right pleural effusion.
[2020-05-05] MEDS: vancomycin 1,250 MG/250 ML PIGGYBACK 250 MG IV ×2 (06:02→18:00)
--- NOTE | 2020-05-05 06:41 | PC.NURSE ---
End of Shift Summary Turned patient's bed alarm on as she was up and down several times last night. Patient was confused about where she is when she would get up. One time she thought she was at home and another time she thought she was at a motel. Patient is alert to self. Otherwise her night was eventful.
--- NOTE | 2020-05-05 07:03 | PC.NURSE ---
Addendum entered by Kandice Weaver RN 05/05/20 07:04: Report to Jennifer BUSTOS Original Note: Report to Jennifer CLARKE
[2020-05-05] MEDS: levothyroxine 88 mcg Tablet PO (08:32)
[2020-05-05] MEDS: aspirin 81 mg EC Tablet PO (08:32)
[2020-05-05] MEDS: oxybutynin 5 mg Tablet PO (08:32)
--- NOTE | 2020-05-05 11:01 | PM.PN ---
Subjective Subjective: Interval history: Ms. Munoz rested well last night. Daughter is at bedside on my rounds this morning. She continues to make substantial recovery status post carotid endarterectomy with postop carotid dissection and occlusion. Speaking quite well today and answering all questions appropriately and rapidly. Speaking in complex sentences. No dysarthria that I can ascertain. No difficulty with swallowing. Extremities appear to be equal. She is ambulating in the hallway with the nurses today without any gait disturbances as reported by them. I removed her surgical dressing today and her left neck incision is clean and dry without evidence for hematoma formation. Potassium 3.3 Chest x-ray still reveals some haziness on the right side which appears to be slightly more intense though this may be a layering effusion. Clinically, from a respiratory standpoint, she appears to be improved. White count has returned to normal. Vitals/I&O/Wt Last Vital Signs Temp 97.8 F 05/05/20 08:00 Pulse 80 05/05/20 08:00 Resp 18 05/05/20 08:00 BP 164/85 05/05/20 08:00 Pulse Ox 96 05/05/20 08:00 05/04/20 05/05/20 05/05/20 22:59 06:59 14:59 Intake Total 540 / 1340 1050 / 2390 370 / 370 Balance 540 / 840 1050 / 1890 370 / 370 Weight last 48 hrs Weight 171 lb 14.4 oz Physical Exam Const: COMMON NORMALS: patient oriented x3 Neck/C-Spine: COMMON NORMALS: No carotid bruits GENERAL: Yes normal visual inspection (Neck incision healing well.) and Yes trachea midline Extremity: GENERAL: Yes normal exam except as noted (Ecchymoses left and right forearms related to prior IVs) Neuro: COMMON NORMALS: patient oriented x3, moves all extremities, no focal motor deficits and no sensory deficits noted GAIT: Yes Normal gait present Urinary Catheter Management^: Brantley: Cath Placed During This Visit: yes, but has since been removed by the nurse Reason for Continuing Indwelling Catheter: Accurate Measurement of Urinary Output in Critically Ill Patients Urinary Catheter Date of Insertion: 04/30/20 Urinary Catheter Time of Insertion: 08:11 Date Urinary Catheter Removed: 05/03/20 Time Urinary Catheter Discontinued: 11:00 Data : 05/04/20 04:15 05/05/20 03:59 A&P Assessment and plan (1) Acute left arterial ischemic stroke, ICA (internal carotid artery): Status post left carotid endarterectomy with postop dissection and occlusion. Has made substantial neurologic recovery over the past 72 hours. Continuing IV antibiotics related to concerns for pneumonia. MRSA-PCR is still pending Potassium replacement. Chest x-ray in a.m. Greatly appreciate oversight and medical expertise of our hospitalist service, Dr. Crespo, and Dr. Fung, Chief of neurology. Status: Acute Attestations Medical Necessity Statement*: Status post carotid endarterectomy with postop for dissection at occlusion Time Spent in Patient Care: 16 - 35 minutes Coding Level of Care Code Acute Political Science Research Assistant for [facility] Diagnoses Acute left arterial ischemic stroke, ICA (internal carotid artery) I63.232
--- NOTE | 2020-05-05 11:08 | PC.SOCIAL ---
IMM Updated Updated pt's daughter on Pg 2 IMM. No questions voiced. Provided pt/daughter a copy. Signed, dated, & timed copy in chart.
[2020-05-05] MEDS: acetaminophen 325 mg Tablet 650 MG PO (12:02)
[2020-05-05] MEDS: lidocaine 1% 5 ML in potassium chloride premix 100 ML 25 ML IV (12:03)
--- NOTE | 2020-05-05 13:29 | P.PN_ITS ---
Subjective Subjective: Interval history: Dalila Munoz is a 79 year old female that was admitted for carotid endarterectomy on April 30. Surgery went well for her left carotid stenosis, with her having a left carotid endarterectomy and patch angioplasty. Vascular surgery was contacted on April 30 as nursing service noted lethargy and drooping of the right side of the face. Neurology was contacted immediately, and patient expeditiously had a CT scan of the head. Seen with daughter at bedside. Reports she feels about the same. Denies headache. Working with physical therapy. Blood pressure elevated. Denies difficulty with swallowing. Receiving potassium. Medications: Reviewed: Yes Vitals/I&O/Wt Last Vital Signs Temp 98.8 F 05/05/20 12:00 Pulse 68 05/05/20 12:00 Resp 18 05/05/20 12:00 BP 189/85 05/05/20 12:00 Pulse Ox 95 05/05/20 11:53 05/04/20 05/05/20 05/05/20 22:59 06:59 14:59 Intake Total 540 / 1340 1050 / 2390 540 / 540 Balance 540 / 840 1050 / 1890 540 / 540 Weight last 48 hrs Weight 171 lb 14.4 oz Physical Exam Const: COMMON NORMALS: no acute distress and patient oriented x3 GENERAL APPEARANCE: cooperative and comfortable Eye: COMMON NORMALS: EOMs intact bilaterally and conjunctivae normal CONJUNCTIVA: Yes conjunctivae normal Neck/C-Spine: COMMON NORMALS: no JVD Resp: COMMON NORMALS: normal respiratory effort and No retractions Cardio: COMMON NORMALS: no JVD and regular rate RATE: regular rate Extremity: COMMON NORMALS: normal to inspection and full ROM Neuro: COMMON NORMALS: patient oriented x3 and CN's II-XII intact bilaterally Urinary Catheter Management^: Brantley: Cath Placed During This Visit: yes, but has since been removed by the nurse Reason for Continuing Indwelling Catheter: Accurate Measurement of Urinary Output in Critically Ill Patients Urinary Catheter Date of Insertion: 04/30/20 Urinary Catheter Time of Insertion: 08:11 Date Urinary Catheter Removed: 05/03/20 Time Urinary Catheter Discontinued: 11:00 Data : 05/04/20 04:15 05/05/20 03:59 A&P Assessment and plan (1) Acute left arterial ischemic stroke, ICA (internal carotid artery): Able, continue PT OT advance activity as tolerated New aspirin Status: Acute (2) Hypokalemia: Receiving potassium through IV If continues to be low we will add p.o. potassium and restart home magnesium Status: Acute (3) Dissection of carotid artery: Status: Acute (4) Pneumonia: Continue antibiotics respiratory status stable Status: Acute (5) Benign essential HTN: Restart amlodipine 2.5 mg daily Status: Acute Attestations Medical Necessity Statement*: Dalila Munoz's hospital stay will require greater than 2 midnights for cva Coding Level of Care Code Acute Immunochemist for g Fwd Diagnoses Acute left arterial ischemic stroke, ICA (internal carotid artery) I63.232 Hypokalemia E87.6 Dissection of carotid artery I77.71 Pneumonia J18.9 Benign essential HTN I10
[2020-05-05] MEDS: amlodipine 5 mg Tablet 2.5 MG PO (13:54)
[2020-05-05] MEDS: atorvastatin 40 mg Tablet PO (21:37)
[2020-05-05] MEDS: amlodipine 5 mg Tablet PO (21:37)
--- NOTE | 2020-05-05 21:43 | PC.NURSE ---
BP BP 204/[address] Golden was notified of pts increasiig BP's and restart of po Amlodipine today. Is aware of recent CVA and endartarectiny done. Order received with meds being given
[2020-05-05] MEDS: hyDRALAzine 20 mg/mL INJ 1 mL 10 MG IVP (22:01)
[2020-05-06] VITALS (9 sets, daily range): BP systolic 158–180; BP diastolic 72–93; PULSE 72–104; RESP 14–18; TEMP 36.4–36.9; O2SAT 93–96
[2020-05-06] MEDS: piperacillin-tazobactam 3.375 GM in sodium chloride 0.9% (plus) 50 ML IV ×2 (00:27→08:27)
[2020-05-06] MEDS: famotidine 20 mg/2 mL INJ IVP (01:22)
[2020-05-06 04:18] LABS: Basophils # 0.1 10^3/uL (0.0-0.1); Basophils % 1.3 %; Eosinophils # 0.5 10^3/uL (0.0-0.8); Eosinophils % 7.7 %; Hemoglobin 13.1 g/dL (11.5-15.3); Lymphocytes # 1.4 10^3/uL (0.8-4.8); Lymphocytes % 19.3 %; Mean Corpuscular HGB Conc 33.6 g/dL (30.0-36.0); Mean Corpuscular Volume 86.3 fL (81-99); Mean Platelet Volume 9.9 fL (7.4-10.4); Monocytes # 0.8 10^3/uL (0.2-0.9); Monocytes % 11.6 %; Neutrophils # 4.12 10^3/uL (1.8-7.7); Neutrophils % 59.1 %; Nucleated Red Blood Cells % 0 %; Platelet Count 233 10^3/cmm (130-400); Red Blood Count 4.52 10^6/uL (4.1-5.3); Red Cell Distribution Width 13.8 % (12.1-15.1)
[2020-05-06 04:32] LABS: Alanine Aminotransferase 16 U/L (0-33); Albumin Level 3.3 g/dL (3.5-5.2); Alkaline Phosphatase 86 IU/L (35-105); Aspartate Amino Transferase 21 U/L (0-32); Blood Urea Nitrogen 12 mg/dL (8-23); Calcium 8.4 mg/dL (8.5-10.5); Carbon Dioxide 21 mmol/L (22-29); Chloride 103 mmol/L (98-107); Glucose 109 mg/dL (65-115); Osmolality Calculated 284 mOsm/kg (285-295); Sodium 137 mmol/L (136-145); Total Bilirubin 0.7 mg/dL (0.15-1.2); Total Protein 6.3 g/dL (6.6-8.7)
--- NOTE | 2020-05-06 05:39 | PC.NURSE ---
SHIFT SUMMARY Pt has confusion and is very forgetful. Had trouble remembering how many children she had but remembers her daughter coming to be with her yesterday. Thought it was afternoon this morning and was wondering why she hadn't come today. Speech is clear with only a very slight left facial droop. 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 Ambulates to bathroom well. IV infusing without difficulty. Incision to left neck C&D. BP was high in the evening but is much better after po Amlodopine dose and IV Hydralazine given. Telemetry showing SR
--- NOTE | 2020-05-06 06:00 | XRR_ITS ---
PROCEDURE INFORMATION: Exam: XR Chest, 1 View Exam date and time: 05/05/2020 11:59 PM Age: 79 years old Clinical indication: Shortness of breath; Additional info: Following right lower lobe infiltrate TECHNIQUE: Imaging protocol: XR of the chest Views: 1 view. COMPARISON: CR XR chest 1V portable [id number] 05/05/2020 5:32 AM FINDINGS: Lungs: The lungs are somewhat hyperinflated with increased interstitial markings, likely representing COPD. There is bibasilar atelectasis, left greater than right. Pneumonia should be excluded clinically. Pleural spaces: Persistent small left pleural effusion. No pneumothorax. Heart/Mediastinum: Stable cardiomediastinal silhouette. Bones/joints: Degenerative changes of the spine seen. XR/XR chest 1V portable [id number] IMPRESSION: 1. Persistent small left pleural effusion. 2. Bibasilar atelectasis. Pneumonia should be excluded clinically. 3. COPD changes.
[2020-05-06] MEDS: vancomycin 1,250 MG/250 ML PIGGYBACK 250 MG IV (06:08)
[2020-05-06] MEDS: sodium chlor 0.9% + KCl 20 mEq 20 MEQ/1,000 ML BAG 50 MEQ IV (06:08)
[2020-05-06] MEDS: amlodipine 5 mg Tablet 10 MG PO (08:28)
[2020-05-06] MEDS: levothyroxine 88 mcg Tablet PO (08:29)
[2020-05-06] MEDS: oxybutynin 5 mg Tablet PO (08:29)
[2020-05-06] MEDS: aspirin 81 mg EC Tablet PO (08:29)
[2020-05-06 10:23] LABS: Magnesium 1.8 mg/dL (1.7-2.3)
--- NOTE | 2020-05-06 11:20 | PM.PN ---
Subjective Subjective: Interval history: Ms. Munoz looks quite good this morning. She is complaining of some trouble sleeping. She converses with me freely with complete sentences and is able to answer all questions. No gross focal motor abnormalities noted. I do note, despite IV potassium replacement, her serum potassium level this morning was 3.0. This may be related to continued fluid management Chest x-ray reveals clearing of the haziness noted in the right lower hemithorax. WBC is normal this morning. Remains afebrile. We are allowing permissive hypertension with her systolic pressures running in general, 160-180. Vitals/I&O/Wt Last Vital Signs Temp 97.6 F 05/06/20 10:57 Pulse 77 05/06/20 10:57 Resp 18 05/06/20 10:57 BP 166/72 05/06/20 10:57 Pulse Ox 96 05/06/20 10:57 05/05/20 05/06/20 05/06/20 22:59 06:59 14:59 Intake Total 645 / 1185 1250 / 2435 550 / 550 Output Total 300 / 300 1400 / 1700 200 / 200 Balance 345 / 885 -150 / 735 350 / 350 Weight last 48 hrs Weight 171 lb 14.4 oz Physical Exam Const: COMMON NORMALS: patient oriented x3 and alert Neck/C-Spine: COMMON NORMALS: no lymphadenopathy OTHER: Left neck incision is healing well. No evidence for fluid collection or hematoma. Resp: COMMON NORMALS: normal respiratory effort, No retractions, No use of accessory muscles and clear to auscultation bilaterally EFFORT & INSPECTION: Yes able to speak in complete sentences and Yes symmetric chest movement AUSCULTATION: clear to auscultation bilaterally Cardio: COMMON NORMALS: regular rate, regular rhythm and S1 normal heart sound present RATE: regular rate RHYTHM: regular rhythm HEART SOUNDS: S1 normal heart sound present Extremity: COMMON NORMALS: no clubbing, cyanosis or edema Neuro: COMMON NORMALS: patient oriented x3, moves all extremities, no focal motor deficits and no sensory deficits noted SENSORIUM/ORIENTATION: Yes alert Urinary Catheter Management^: Brantley: Cath Placed During This Visit: yes, but has since been removed by the nurse Reason for Continuing Indwelling Catheter: Accurate Measurement of Urinary Output in Critically Ill Patients Urinary Catheter Date of Insertion: 04/30/20 Urinary Catheter Time of Insertion: 08:11 Date Urinary Catheter Removed: 05/03/20 Time Urinary Catheter Discontinued: 11:00 Data : 05/06/20 03:17 05/06/20 03:17 A&P Assessment and plan (1) Acute left arterial ischemic stroke, ICA (internal carotid artery): 6 days status post left carotid endarterectomy with postoperative dissection and subsequent carotid occlusion with early neurologic deficit, resolved. Recommendation: From a surgical standpoint, Ms. Munoz is cleared for discharge to home, follow recommendations of neurology to allow for permissive hypertension for at least 2 weeks and continued antiplatelet therapy with aspirin only. Potassium replacement orally with follow-up BMP Would recommend home health services with physical therapy, continued speech evaluations, and Occupational Therapy Would recommend follow-up bilateral carotid duplex study in 6 weeks to assess the stability of the right side and potential recannulation of the left side and then follow-up in my clinic. Would confirm follow-up appointment with Dr. Fung with our neurological services. I greatly appreciate all of the efforts and expertise of our hospitalist colleagues and Dr. Fung. Status: Acute Attestations Medical Necessity Statement*: 1 week status post carotid endarterectomy and postop carotid dissection with occlusion Time Spent in Patient Care: 16 - 35 minutes Coding Level of Care Code Acute Graduating Machine Operator for [place] Diagnoses Acute left arterial ischemic stroke, ICA (internal carotid artery) I63.232
[2020-05-06] MEDS: magnesium oxide 400 mg tablet 200 MG PO (11:47)
[2020-05-06] MEDS: potassium chloride ER 20 mEq Tablet PO (11:47)
--- NOTE | 2020-05-06 12:03 | PM.PN ---
Subjective Subjective: Interval history: Seen with speech therapy. Feels better. denies difficulty with swallowing. K low this AM Mg back ordered Medications: Reviewed: Yes Vitals/I&O/Wt Last Vital Signs Temp 97.6 F 05/06/20 10:57 Pulse 104 H 05/06/20 12:02 Resp 18 05/06/20 10:57 BP 166/72 05/06/20 10:57 Pulse Ox 96 05/06/20 12:02 05/05/20 05/06/20 05/06/20 22:59 06:59 14:59 Intake Total 645 / 1185 1250 / 2435 550 / 550 Output Total 300 / 300 1400 / 1700 200 / 200 Balance 345 / 885 -150 / 735 350 / 350 Weight last 48 hrs Weight 171 lb 14.4 oz Physical Exam Const: COMMON NORMALS: no acute distress and patient oriented x3 GENERAL APPEARANCE: cooperative and comfortable Eye: COMMON NORMALS: EOMs intact bilaterally and conjunctivae normal CONJUNCTIVA: Yes conjunctivae normal Neck/C-Spine: COMMON NORMALS: no JVD Resp: COMMON NORMALS: normal respiratory effort and No retractions Cardio: COMMON NORMALS: no JVD and regular rate RATE: regular rate Extremity: COMMON NORMALS: normal to inspection and full ROM Neuro: COMMON NORMALS: patient oriented x3 and CN's II-XII intact bilaterally Urinary Catheter Management^: Brantley: Reason for Continuing Indwelling Catheter: Accurate Measurement of Urinary Output in Critically Ill Patients Urinary Catheter Date of Insertion: 04/30/20 Urinary Catheter Time of Insertion: 08:11 Date Urinary Catheter Removed: 05/03/20 Time Urinary Catheter Discontinued: 11:00 Data : 05/06/20 03:17 05/06/20 03:17 A&P Assessment and plan (1) Acute left arterial ischemic stroke, ICA (internal carotid artery): Stable continue PT OT Aspirin Status: Acute (2) Hypokalemia: Receiving potassium through IV oral K and Mg added added repeat BMP this afternoon Status: Acute (3) Dissection of carotid artery: Status: Acute (4) Pneumonia: Continue antibiotics respiratory status stable Status: Acute (5) Benign essential HTN: Antihypertensives adjusted overnight. Still elevated BP Status: Acute Additional A&P Information disposition: ok to DC when BP better, and K improved possible DC later today Attestations Medical Necessity Statement*: Dalila Munoz's hospital stay will require greater than 2 midnights for cva Coding Level of Care Code Acute Buzzsaw Operator for Chg Fwd Diagnoses Acute left arterial ischemic stroke, ICA (internal carotid artery) I63.232 Hypokalemia E87.6 Dissection of carotid artery I77.71 Pneumonia J18.9 Benign essential HTN I10
[2020-05-06 13:47] LABS: Anion Gap 16.1 (5-19); Blood Urea Nitrogen 13 mg/dL (8-23); Calcium 8.5 mg/dL (8.5-10.5); Carbon Dioxide 20 mmol/L (22-29); Chloride 104 mmol/L (98-107); Glucose 136 mg/dL (65-115); Osmolality Calculated 286 mOsm/kg (285-295); Potassium 3.1 mmol/L (3.5-5.1); Sodium 137 mmol/L (136-145)
--- NOTE | 2020-05-07 05:21 | PM.DCS ---
Discharge Providers Date of Admission: 04/30/20 10:35 Date of Discharge: May 07, 2020 Attending Provider at Admission: Alejo Cabrales MD Attending Provider at Discharge: Alejo Cabrales MD Primary Care Provider: Jakob Cole DO Diagnoses at Discharge Discharge Diagnosis (1) Acute left arterial ischemic stroke, ICA (internal carotid artery): Status: Acute (2) Hypokalemia: Status: Acute (3) Dissection of carotid artery: Status: Acute (4) Pneumonia: Status: Acute (5) Benign essential HTN: Status: Acute Reason for Visit Reason for Visit: carotid Hospital Course Hospital Course Ms. Munoz is an 79-year-old female who was electively admitted on April 30 for planned left carotid endarterectomy related to an long 80% left ICA stenosis which originated distal to the left carotid bifurcation. She underwent outpatient evaluation and was electively admitted for planned surgery. Approximately 10 hours postop, she developed acute receptive aphasia and right-sided weakness. CTA revealed what appeared represent dissection and occlusion of the left internal carotid artery at the bifurcation. She was acutely heparinized and passive hypertension was allowed. Over the next 36 hours she slowly recovered and regained full function to baseline. She was carefully evaluated acutely by Dr. Fung who assisted in her acute management as well as the hospitalist service. Phone consultation was made with [facility] to assess as to whether intervention would be of benefit. Due to her limited acute deficit, as well as complete intracranial circulation by CTA, it was felt this would not be of benefit. She continue medical management and over the next 3 days continue to improve back to baseline. Due to right lower lobe haziness and effusions related to aggressive hydration, she was empirically treated for pneumonia with Zosyn and vancomycin with only a modest elevation of her white count which rapidly returned to normal. She never developed fever or productive cough or had symptoms of sepsis. After 48 hours of IV heparin, she was transitioned to subcutaneous heparin at therapeutic doses for another 72 hours. I elected to leave her left neck NICHOLE drain in until IV heparinization been completed, therefore it was removed on the fourth day. She underwent careful evaluation by our occupational therapy, physical therapy, and speech therapy departments. She is she continued to spontaneously progress back to baseline. She was then transferred to the [facility] where she continued to do well, performing all tasks and functions with ease, communicating without difficulty, and ambulating with normal gait very well. She was simply discharged on May 06. She will continue aspirin and we have resumed amlodipine at low-dose allowing for permissive modest hypertension to be maintained for another 2 weeks per recommendation of Dr. Fung and our neurology service. She will be followed up in my service with carotid duplex imaging at 6 weeks. She will be scheduled for follow-up with Dr. Fung with our neurology service as well. At the time of discharge she is in stable condition. Physical Exam Const: COMMON NORMALS: patient oriented x3 and alert Neck/C-Spine: COMMON NORMALS: supple and No carotid bruits GENERAL: Yes trachea midline OTHER: Neck incision is healing well. Resp: COMMON NORMALS: normal respiratory effort, No use of accessory muscles, clear to auscultation bilaterally and percussion normal EFFORT & INSPECTION: Yes able to speak in complete sentences and Yes symmetric chest movement AUSCULTATION: clear to auscultation bilaterally PERCUSSION: percussion normal OTHER: Most recent chest x-ray reveals clear lung drew bilaterally and resolution of effusion Cardio: COMMON NORMALS: regular rate, regular rhythm and S1 normal heart sound present RATE: regular rate RHYTHM: regular rhythm HEART SOUNDS: S1 normal heart sound present Extremity: COMMON NORMALS: no clubbing, cyanosis or edema OTHER: She does have forearm ecchymoses bilaterally from IVs and prior heparinization. Neuro: COMMON NORMALS: patient oriented x3, moves all extremities, no focal motor deficits and no sensory deficits noted SENSORIUM/ORIENTATION: Yes alert Urinary Catheter Management^: Brantley: Cath Placed During This Visit: yes, but has since been removed by the nurse Reason for Continuing Indwelling Catheter: Accurate Measurement of Urinary Output in Critically Ill Patients Urinary Catheter Date of Insertion: 04/30/20 Urinary Catheter Time of Insertion: 08:11 Date Urinary Catheter Removed: 05/03/20 Time Urinary Catheter Discontinued: 11:00 Discharge Data Data Completed and Pending: Completed Studies During Hospitalization Category Date Time Status CT angio headneck * [id number] Stat Cat Scan 04/30/20 20:[address] head wo con* 7 0450 Stat Cat Scan 04/30/20 20:[address] head wo con* 7 0450 Stat Cat Scan 05/02/20 08:10 Completed XR chest 1V amelia ble [id number] Routine Exams 05/02/20 04:00 Completed XR chest 1V amelia ble [id number] Routine Exams 05/03/20 06:00 Completed XR chest 1V amelia ble [id number] Routine Exams 05/05/20 06:00 Completed XR chest 1V amelia ble [id number] Routine Exams 05/06/20 06:00 Completed XR chest 2V* [id number] Routine Exams 04/30/20 05:37 Completed Pathology: Surgic al [PTH] Routine Pth 04/30/20 13:12 Completed Pending at discharge Category Date Time Status Miscellaneous Debo t Routine Lab 05/02/20 14:50 Received Labs from last 24 hours 05/06/20 05/06/20 13:22 03:17 Sodium 137 Potassium 3.1 L Chloride 104 Carbon Dioxide 20 L Anion Gap 16.1 BUN 13 Creatinine 0.6 GFR Calculation Not Reportable Glucose 136 H Calculated Osmolal ity 286 Calcium 8.5 Magnesium 1.8 Vitals: Last Vital Signs Temp 97.6 F 05/06/20 10:57 Pulse 104 H 05/06/20 15:07 Resp 18 05/06/20 10:57 BP 166/72 05/06/20 10:57 Pulse Ox 96 05/06/20 12:02 Discharge Plan Discharge Patient Disposition: Home Health Service Condition: Stable Prescriptions: New atorvastatin 40 mg Tablet 40 mg PO BEDTIME Qty: 30 RF: 5 acetaminophen 325 mg Tablet 650 mg PO Q4H PRN (Reason: Mild Pain Or Increase Temp) Qty: 100 RF: 5 Klor-Con M20 20 mEq Tablet,Er Particles/Crystals 20 meq PO BIDWM Qty: 60 RF: 0 Continued oxybutynin chloride 5 mg tablet 5 mg PO DAILY RF: 0 citalopram 10 mg tablet 10 mg PO DAILY RF: 0 sumatriptan 20 mg/actuation spray,non-aerosol 20 mg INTRANASAL Q2H PRN (Reason: Migraine Headache) RF: 0 magnesium oxide 400 mg magnesium tablet 400 mg PO DAILY RF: 0 lysine [L-Lysine] 500 mg tablet 500 mg PO DAILY RF: 0 calcitonin (salmon) 200 unit/actuation spray,non-aerosol 1 spray intranasal (ALT) DAILY RF: 0 levothyroxine 88 mcg capsule 88 mcg PO DAILY RF: 0 aspirin [Adult Aspirin Regimen] 81 mg tablet,delayed release (DR/EC) 81 mg PO DAILY RF: 0 Caltrate 600-D Plus Minerals 600 mg calcium- 800 unit-50 mg tablet 1 tab PO BID RF: 0 phenazopyridine [Azo Urinary Pain Relief] 95 mg tablet 95 mg PO TID PRN (Reason: Bladder Spasms) RF: 0 vitamin E 400 unit Capsule 400 unit PO DAILY RF: 0 cholecalciferol (vitamin D3) [Vitamin D3] 125 mcg (5,000 unit) Tablet 2,000 unit PO DAILY RF: 0 propranolol 40 mg tablet 40 mg PO BID RF: 0 Discontinued amlodipine 2.5 mg tablet 2.5 mg PO DAILY 30 Days Qty: 30 RF: 5 alprazolam 1 mg tablet 1 mg PO .at bedtime RF: 0 multivitamin [Daily Multi-Vitamin] Tablet 1 tab PO DAILY RF: 0 Discharge Orders: Discharge Order (Routine); Ordered 05/06/20 Ordered By: Alejo Cabrales Other Ambulatory Orders: CV carotid duplex BI* [id number] (Routine) Timeframe: 6 Weeks Facility: [facility] - Location: Radiology [facility] Ordered By: Alejo Cabrales Referrals: Dawna Fung MD [Physician] - 2 weeks (Please call Dr. Fung's office [phone] to confirm the appropriate timing of follow-up.) Alejo Cabrales MD [Physician] - 6 Weeks (Carotid duplex study prior to clinic visit. Please call the offive first thing Thursday morning to make a follow up appointment for 6 weeks.) Discharge Diet: Advance as tolerated Discharge Activity: Limit activity as instructed Patient Instructions: Potassium Chloride (By mouth), Atorvastatin (By mouth), Hypokalemia (DC), Carotid Endarterectomy (DC), Ischemic Stroke (DC), Stroke Stoplight Activity Restrictions/Additional Instructions: No heavy lifting or pulling for 6 weeks Discharge Attestations Time Spent in Discharge Care*: less than 30 min Specific Discharge Activities: educating patient, educating and/or supporting family/caregiver, discussing with pcp/other providers, discussing with case management assistant/social workers/dc planners, documenting/other paperwork and evaluating patient/reviewing data Status at Discharge: Cognitive status at discharge: cognitively intact, Functional status at discharge: independent ambulation Overall status at discharge: patient is back to baseline Quality Metrics Clinical Quality Measures During this hospital stay, did patient experience: Stroke Contraindication to Antithrombotic: Antithrombotic prescribed Contraindication to Anticoagulation: Late effect of medical and surgical care complication Contraindication to Statin: Statin prescribed Contraindication to antithrombotic day 2: Antithrombotic given Contraindication to tPA: Recent major surgery Onset of Symptoms Date: 04/30/20 Onset of Symptoms Time: 22:00 Symptom Onset Unknown: No Reason stroke education not provided: Stroke education provided to patient Rehab services assessed: Activities of daily living assessment, Physical therapy, Occupational therapy and Speech therapy Reason rehab assessment not done: Rehab assessment done Coding Level of Care Code Acute Server Service Assistant for [place] Diagnoses Acute left arterial ischemic stroke, ICA (internal carotid artery) I63.232 Hypokalemia E87.6 Dissection of carotid artery I77.71 Pneumonia J18.9 Benign essential HTN I10
== END 2020-05-06 15:08 | disposition home health service (06) | DRG 37 ==
LOC: ICU 10:36 → MEDSURG 05-04 14:06
PROVIDERS: Internal Medicine; Admitting Provider Thoracic Surgery (Cardiothoracic Vascular Surgery); PCP Internal Medicine; Visit Provider Thoracic Surgery (Cardiothoracic Vascular Surgery)
PROC: 03CL0ZZ Extirpation of Matter from Left Internal Carotid Artery, Open Approach (ICD-10-PCS; CPT 35301; principal; 2020-04-30 07:00)
DX: I65.22 Occlusion and stenosis of left carotid artery (principal); I50.31 Acute diastolic (congestive) heart failure; J18.9 Pneumonia, unspecified organism; J96.00 Acute respiratory failure, unspecified whether with hypoxia or hypercapnia; I97.821 Postprocedural cerebrovascular infarction following other surgery; I49.9 Cardiac arrhythmia, unspecified; I11.0 Hypertensive heart disease with heart failure; K58.9 Irritable bowel syndrome, unspecified; I34.0 Nonrheumatic mitral (valve) insufficiency; E06.4 Drug-induced thyroiditis; I63.232 Cerebral infarction due to unspecified occlusion or stenosis of left carotid arteries; R47.01 Aphasia; R29.810 Facial weakness; H53.9 Unspecified visual disturbance; G83.21 Monoplegia of upper limb affecting right dominant side; R29.708 NIHSS score 8; E87.6 Hypokalemia; Z79.82 Long term (current) use of aspirin
CPT/HCPCS: 12345; 36415; 36416; 51702; 70450; 70496; 70498; 71045; 71046; 80048; 80053; 80202; 81001; 82962; 83735; 84145; 85025; 85610; 85730; 86850; 86900; 86920; 87081; 88304; 92507; 92523; 92526; 92610; 93005; 94669; 96372; 97110; 97116; 97163; 97166; 97530; 97535; J0330; J0360; J0690; J1100; J1644; J1940; J2270; J2405; J2543; J2704; J2710; J2720; J2765; J3010; J3370; J3480; J3490; J7030; Q9967

== ENCOUNTER 2020-05-17 18:49 | Inpatient (IN) | payer MEDICARE, SELFPAY ==
--- NOTE | 2020-05-17 18:54 | XRR_ITS ---
PROCEDURE INFORMATION: Exam: XR Chest, 1 View Exam date and time: 05/17/2020 7:36 PM Age: 79 years old Clinical indication: Type not specified; Patient HX: Chest pain, confusion TECHNIQUE: Imaging protocol: XR of the chest Views: 1 view. COMPARISON: CR (CHEST, ) 05/06/2020 9:16 AM FINDINGS: Lungs: Interstitial opacities lower lungs. Pleural spaces: Bilateral apical pleural thickening. Heart/Mediastinum: Accentuation of the heart size. Bones/joints: Degenerative changes of thoracic spine. Osteopenia. Soft tissues: Radiopaque metallic structure superimposes soft tissues at the supraclavicular fossa. Other findings: Interval diminutive or resolving left effusion. XR/XR chest 1V portable [id number] IMPRESSION: 1. Persistent interstitial opacities of lower lungs greater on the right are similar which could reflect infiltrate, chronic changes or partial atelectasis. 2. Diminutive volume of left effusion.
--- NOTE | 2020-05-17 18:55 | ECG_ITS ---
[facility] Test Date: 2020-05-17 Pat Name: Dalila Munoz Department: Room: Gender: Female Training Personnel Supervisor: : [id number] Requested By: Cristy Pascual Order Number: [id number] Tenzin MD: Ana Brock M.D. Measurements Intervals [place] Rate: 60 P: 20 NM: 169 QRS: -18 QRSD: 84 T: 72 QT: 414 QTc: 415 Interpretive Statements SINUS RHYTHM POOR R WAVE PROGRESSION, POSSIBLE ANTERIOR MYOCARDIAL INFARCTION , OF INDETERMINATE AGE [30 ms Q WAVE IN V3/V4, OR R < 0.2 mV IN V4] INFERIOR MYOCARDIAL INFARCTION , PROBABLY OLD [40+ ms Q WAVE AND/OR ST/T ABNORMALITY IN II/aVF] Compared to ECG 05/02/2020 11:49:36 Sinus arrhythmia no longer present Poor R-wave progression no longer present Myocardial infarct finding still present Electronically Signed On 05-18-2020 16:04:41 SECOND CRUSHER by Ana Brock M.D. [email or web address]
[2020-05-17 19:09] VITALS: BP 233/98; PULSE 61; RESP 17; TEMP 36.7; O2SAT 89; BMI 25.0
--- NOTE | 2020-05-17 19:38 | W.ED.CHESTPA ---
HPI - Chest Pain General: Chief Complaint: Chest Pain Stated Complaint: CHEST PAIN Time Seen by Provider: 05/17/20 18:52 History of Present Illness: HPI narrative: This patient is an 79-year-old female presenting today with chest pain. She is coming from home with her daughter. Her chest pain is left-sided and developed at about 4 this afternoon. She said it has been constant. It does not get better or worse with anything. It radiates to her left shoulder and slightly to her left neck. She had a stroke on April 30 related to a carotid artery surgery. She has had aphasia since then and has trouble describing the pain to me. Her daughter helped with this. Her daughter said that she has not had a cardiac history in the past other than an irregular heartbeat. She is on propranolol for that. She has not had a heart attack. She does take something for blood pressure but her blood pressure had been well controlled today until the pain started. Since then its been much higher than usual. She denies cough or shortness of breath. She denies nausea or fever. She has seen Dr. Brock for her irregular heartbeat. It is not atrial fibrillation according to the daughter and prior charts. Her daughter notes that she had a more stressful day than she said since she has been on the hospital. She had doctor's appointment and physical therapy and Occupational Therapy. She also had a cup of coffee and soda which is more caffeine than what she has had since her discharge from the hospital. She has complained of being very tired. MD complaint: chest pain Onset (ago): hour(s) (2) Timing of current episode: constant Prior episodes: No Onset: during rest Pain location: left chest Pain radiation: neck and left shoulder Severity: moderate Quality: tightness, aching and heaviness Relieving factors: nothing Exacerbating factors: nothing Context: recent surgery and other (Recent left carotid endarterectomy with stroke) Associated symptoms: Reports palpitations; Deny abdominal pain, diaphoresis, dyspnea, fever(s), leg edema or nausea Treatment prior to arrival: aspirin Review of Systems General: Reports: 10 or more systems reviewed and unremarkable except in HPI and below Const: Denies: fever(s) or diaphoresis Eyes: Denies: change in vision ENMT: Denies: odynophagia Card: Reports: chest pain and palpitations Resp: Denies: dyspnea GI: Denies: abdominal pain or nausea : Denies: flank pain or difficulty voiding Musc: Denies: neck pain or back pain Skin/Breast: Denies: rash Neuro: Reports: other (No new neuro complaints since her stroke which left her with aphasia); Denies: headache(s), numbness in extremities or weakness in extremities Juancho/Lymph: Denies: easy bruising or easy bleeding PFSH ED PFSH: Medical History Atrial arrhythmia EKG from 12/26/2019 revealed sinus rhythm with a frequent PACs in the form of couplets. Reviewed ST-T changes. Poor R wave progression. Possible left atrial enlargement. Benign essential HTN Carotid stenosis Cataract Heart murmur IBS (irritable bowel syndrome) Left ventricular diastolic dysfunction Migraines Mitral regurgitation Radiation thyroiditis Unsteadiness on feet Surgical History H/O: hysterectomy History of bilateral breast implants Family History Mother CAD (coronary artery disease) Stroke Sister Cancer Other Hypertension Denies family history of Diabetes Clotting disorder Dementia Chronic kidney disease (CKD) Suicide Anesthesia complication Bleeding disorder Lung disease Social History Smoking and tobacco status: never smoked Alcohol intake: never History of recent travel: No Physical Exam Const: COMMON NORMALS: no acute distress, patient oriented x3 and alert GENERAL APPEARANCE: cooperative and comfortable ORIENTATION/CONSCIOUSNESS: Yes oriented to person, Yes oriented to place and Yes oriented to time HENMT: HEAD & SCALP: normal to inspection FACE & SINUS: normal facial exam Eye: GENERAL EYE: appearance normal, both eyes and all related structures Neck/C-Spine: COMMON NORMALS: supple, no meningeal signs, no JVD and No carotid bruits (Healing surgical site on the left carotid) Chest: COMMONS NORMALS: normal inspection of the chest Resp: COMMON NORMALS: normal respiratory effort, No use of accessory muscles and clear to auscultation bilaterally AUSCULTATION: clear to auscultation bilaterally Cardio: COMMON NORMALS: no JVD, regular rate, regular rhythm and No murmurs present (Cardio) RATE: regular rate RHYTHM: regular rhythm GI: COMMON NORMALS: Normal to inspection, nondistended, normoactive bowel sounds present, Soft to palpation and non-tender INSPECTION: Yes normal to inspection AUSCULTATION: Yes normoactive bowel sounds PALPATION: Yes Soft to palpation Back/Pelvis: COMMON NORMALS: thoracic and lumbar spine normal to inspection Extremity: COMMON NORMALS: normal to inspection Neuro: COMMON NORMALS: patient oriented x3, moves all extremities, no focal motor deficits and no sensory deficits noted SENSORIUM/ORIENTATION: Yes alert, Yes oriented to person, Yes oriented to place and Yes oriented to time MENINGEAL SIGNS: Yes no meningeal signs SPEECH: Other neuro speech findings (Slow to answer, limited answers) Psych: COMMON NORMALS: mental status grossly normal, cooperative and normal affect Skin: COMMON NORMALS: no rashes or lesions noted and turgor normal GENERAL SKIN EXAM: no rashes or lesions noted and turgor normal Course ED course: This patient presents with chest pain. She is about 2 weeks out from a stroke after a carotid endarterectomy. She is aphasic and has difficulty understanding and communicating. Her chest pain resolved while in the ER. She was hypertensive initially and after 1 clonidine 0.1 mg she had blood pressures in the normal range. Her troponin initially was 64. She obviously has a history of atherosclerosis given her carotid endarterectomy history. She also had a stress test in January which was nondiagnostic. Her EKG shows Q waves in the inferior leads and poor R wave progression in the lateral leads. There is some inversion in flattened T wave in aVL as well. Second troponin is still pending but I feel like she is high enough risk that she should come into the hospital for further evaluation. She did have a recent stress test that was nondiagnostic and she might need an angiogram. I discussed this with her and her daughter. They agree to admission. Her daughter is very concerned that staff will not realize that the patient is aphasic and think that she is being difficult when she fails to answer questions appropriately. Vital Signs: Vital signs: Vital Signs Temperature 98.1 F 05/17/20 19:09 Pulse Rate 60 05/17/20 21:22 Respiratory Rate 16 05/17/20 21:22 Blood Pressure 143/80 05/17/20 21:22 Pulse Oximetry 97 05/17/20 21:22 MDM - Chest Pain MDM Narrative: Medical decision making narrative: Angina, unstable angina, AR, PE, gastritis, aortic dissection, pleurisy, pneumonia. Lab Data: Labs: Lab Results 05/17/20 05/17/20 05/17/20 Range/Units 20:42 20:42 21:21 WBC 7.4 (4.0-10.0) 10^3/ uL RBC 4.62 (4.1-5.3) 10^6/u L Hgb 13.7 (11.5-15.3) g/dL Hct 41.8 (37.0-47.0) % MCV 90.5 (81-99) fL MCH 29.7 (28.0-34.0) pg MCHC 32.8 (30.0-36.0) g/dL RDW 13.9 (12.1-15.1) % Plt Count 346 (130-400) 10^3/c mm MPV 10.7 H (7.4-10.4) fL Neut % (Auto) 54.3 % Lymph % (Auto) 28.0 % [place] % (Auto) 10.6 % Eos % (Auto) 5.5 % Baso % (Auto) 1.2 % Neut # (Auto) 4.04 (1.8-7.7) 10^3/u L Lymph # (Auto) 2.1 (0.8-4.8) 10^3/u L [place] # (Auto) 0.8 (0.2-0.9) 10^3/u L Eos # (Auto) 0.4 (0.0-0.8) 10^3/u L Baso # (Auto) 0.1 (0.0-0.1) 10^3/u L Nucleated RBC % (a uto) 0 % Nucleated RBCs # 0.0 /100WBC PT 12.40 (12.1-14.9) SECO NDS INR 0.90 (0.8-1.2) Sodium 137 (136-145) mmol/L Potassium 4.1 (3.5-5.1) mmol/L Chloride 101 (98-107) mmol/L Carbon Dioxide 24 (22-29) mmol/L Anion Gap 16.1 (5-19) BUN 22 (8-23) mg/dL Creatinine 0.9 (0.5-0.9) mg/dL GFR Calculation Not Reportable Glucose 113 (65-115) mg/dL Calculated Osmolal ity 288 (285-295) mOsm/k g Calcium 8.6 (8.5-10.5) mg/dL Total Bilirubin 0.4 (0.15-1.2) mg/dL AST 17 (0-32) U/L ALT 13 (0-33) U/L Alkaline Phosphata se 100 (35-105) IU/L Troponin T Baselin e (0-10) ng/L NT-Pro-B Natriuret Pep 117 (0-450) pg/mL Total Protein 6.7 (6.6-8.7) g/dL Albumin 3.8 (3.5-5.2) g/dL Globulin 2.9 (1.3-4.6) g/dL Lipase 26 (13-60) U/L 05/17/20 Range/Units 21:21 WBC (4.0-10.0) 10^3/ uL RBC (4.1-5.3) 10^6/u L Hgb (11.5-15.3) g/dL Hct (37.0-47.0) % MCV (81-99) fL MCH (28.0-34.0) pg MCHC (30.0-36.0) g/dL RDW (12.1-15.1) % Plt Count (130-400) 10^3/c mm MPV (7.4-10.4) fL Neut % (Auto) % Lymph % (Auto) % [place] % (Auto) % Eos % (Auto) % Baso % (Auto) % Neut # (Auto) (1.8-7.7) 10^3/u L Lymph # (Auto) (0.8-4.8) 10^3/u L [place] # (Auto) (0.2-0.9) 10^3/u L Eos # (Auto) (0.0-0.8) 10^3/u L Baso # (Auto) (0.0-0.1) 10^3/u L Nucleated RBC % (a uto) % Nucleated RBCs # /100WBC PT (12.1-14.9) SECO NDS INR (0.8-1.2) Sodium (136-145) mmol/L Potassium (3.5-5.1) mmol/L Chloride (98-107) mmol/L Carbon Dioxide (22-29) mmol/L Anion Gap (5-19) BUN (8-23) mg/dL Creatinine (0.5-0.9) mg/dL GFR Calculation Glucose (65-115) mg/dL Calculated Osmolal ity (285-295) mOsm/k g Calcium (8.5-10.5) mg/dL Total Bilirubin (0.15-1.2) mg/dL AST (0-32) U/L ALT (0-33) U/L Alkaline Phosphata se (35-105) IU/L Troponin T Baselin e 64 H (0-10) ng/L NT-Pro-B Natriuret Pep (0-450) pg/mL Total Protein (6.6-8.7) g/dL Albumin (3.5-5.2) g/dL Globulin (1.3-4.6) g/dL Lipase (13-60) U/L Discharge Plan Discharge Prescriptions: No Action oxybutynin chloride 5 mg tablet 5 mg PO DAILY RF: 0 citalopram 10 mg tablet 10 mg PO DAILY RF: 0 sumatriptan 20 mg/actuation spray,non-aerosol 20 mg INTRANASAL Q2H PRN (Reason: Migraine Headache) RF: 0 magnesium oxide 400 mg magnesium tablet 400 mg PO DAILY RF: 0 lysine [L-Lysine] 500 mg tablet 500 mg PO DAILY RF: 0 calcitonin (salmon) 200 unit/actuation spray,non-aerosol 1 spray intranasal (ALT) DAILY RF: 0 levothyroxine 88 mcg capsule 88 mcg PO DAILY RF: 0 aspirin [Adult Aspirin Regimen] 81 mg tablet,delayed release (DR/EC) 81 mg PO DAILY RF: 0 Caltrate 600-D Plus Minerals 600 mg calcium- 800 unit-50 mg tablet 1 tab PO BID RF: 0 phenazopyridine [Azo Urinary Pain Relief] 95 mg tablet 95 mg PO TID PRN (Reason: Bladder Spasms) RF: 0 vitamin E 400 unit Capsule 400 unit PO DAILY RF: 0 cholecalciferol (vitamin D3) [Vitamin D3] 125 mcg (5,000 unit) Tablet 2,000 unit PO DAILY RF: 0 propranolol 40 mg tablet 40 mg PO BID RF: 0 atorvastatin 40 mg Tablet 40 mg PO BEDTIME Qty: 30 RF: 5 acetaminophen 325 mg Tablet 650 mg PO Q4H PRN (Reason: Mild Pain Or Increase Temp) Qty: 100 RF: 5 Klor-Con M20 20 mEq Tablet,Er Particles/Crystals 20 meq PO BIDWM Qty: 60 RF: 0 Coding Level of Care Code ED Health Safety Manager for [employer] Fwd Exam Comprehensive
[2020-05-17 20:05] VITALS: BP 190/98
[2020-05-17] MEDS: cloNIDine 0.1 mg Tablet PO (20:05)
--- NOTE | 2020-05-17 20:55 | ECG_ITS ---
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 Measurements Intervals [place] Rate: 55 P: 22 CT: 174 QRS: -15 QRSD: 87 T: 59 QT: 444 QTc: 428 Interpretive Statements SINUS BRADYCARDIA WITH OCCASIONAL SUPRAVENTRICULAR PREMATURE COMPLEXES POSSIBLE ANTERIOR MYOCARDIAL INFARCTION , OF INDETERMINATE AGE [30 ms Q WAVE IN V3/V4, OR R < 0.2 mV IN V4] INFERIOR MYOCARDIAL INFARCTION , PROBABLY OLD [40+ ms Q WAVE AND/OR ST/T ABNORMALITY IN II/aVF] Compared to ECG 05/02/2020 11:49:36 Sinus rhythm no longer present Sinus arrhythmia no longer present Poor R-wave progression no longer present Myocardial infarct finding still present Electronically Signed On 05-18-2020 16:10:27 STEEL CHIPPER by Ana Brock M.D. [id number]
[2020-05-17 21:00] VITALS: BP 162/87; PULSE 58; RESP 14; O2SAT 97
[2020-05-17 21:09] LABS: Basophils # 0.1 10^3/uL (0.0-0.1); Basophils % 1.2 %; Eosinophils # 0.4 10^3/uL (0.0-0.8); Eosinophils % 5.5 %; Hematocrit 41.8 % (37.0-47.0); Hemoglobin 13.7 g/dL (11.5-15.3); Lymphocytes # 2.1 10^3/uL (0.8-4.8); Mean Corpuscular HGB Conc 32.8 g/dL (30.0-36.0); Mean Corpuscular Hemoglobin 29.7 pg (28.0-34.0); Mean Corpuscular Volume 90.5 fL (81-99); Mean Platelet Volume 10.7 fL (7.4-10.4); Monocytes # 0.8 10^3/uL (0.2-0.9); Monocytes % 10.6 %; Neutrophils # 4.04 10^3/uL (1.8-7.7); Neutrophils % 54.3 %; Nucleated Red Blood Cells % 0 %; Platelet Count 346 10^3/cmm (130-400); Red Blood Count 4.62 10^6/uL (4.1-5.3); Red Cell Distribution Width 13.9 % (12.1-15.1); White Blood Count 7.4 10^3/uL (4.0-10.0)
[2020-05-17 21:22] VITALS: BP 143/80; PULSE 60; RESP 16; O2SAT 97
[2020-05-17 22:14] LABS: Troponin(5th) Baseline 64 ng/L (0-10)
[2020-05-17 22:23] LABS: Alanine Aminotransferase 13 U/L (0-33); Albumin Level 3.8 g/dL (3.5-5.2); Alkaline Phosphatase 100 IU/L (35-105); Anion Gap 16.1 (5-19); Aspartate Amino Transferase 17 U/L (0-32); Blood Urea Nitrogen 22 mg/dL (8-23); Calcium 8.6 mg/dL (8.5-10.5); Carbon Dioxide 24 mmol/L (22-29); Chloride 101 mmol/L (98-107); Globulin 2.9 g/dL (1.3-4.6); Glucose 113 mg/dL (65-115); Lipase 26 U/L (13-60); NT Pro B Type Natriuretic Pept 117 pg/mL (0-450); Osmolality Calculated 288 mOsm/kg (285-295); Potassium 4.1 mmol/L (3.5-5.1); Sodium 137 mmol/L (136-145); Total Bilirubin 0.4 mg/dL (0.15-1.2); Total Protein 6.7 g/dL (6.6-8.7)
[2020-05-17 23:00] VITALS: BP 139/69; PULSE 57; RESP 19; O2SAT 96
--- NOTE | 2020-05-17 23:31 | PM.HP ---
Providers/Chief Complaint Primary Care Provider: Jakob Cole DO Chief Complaint: CHEST PAIN History of Present Illness Dalila Munoz is a 79 year old female who was recently admitted for planned left carotid endarterectomy, unfortunately after the procedure she started complaining of headache and code stroke was called for sensory aphasia and right-sided facial droop, CTA revealed carotid dissection she was started on heparin, [facility] did not recommend aggressive intervention because of limited acute deficit and complete intracranial circulation by CTA. Patient symptoms improved over the course of next 3 days and she was discharged on aspirin and atorvastatin 40 mg. Daughter is at the bedside who is endorsing that her mother could not get physical therapy for last few days because of snow today she had a rough day she has undergone physical therapy, Occupational Therapy and was exhausted. Around 4 PM she told her daughter that she is experiencing headache for which she was given Tylenol and then she went to bed to sleep. Around 6 PM she was woken up from sleep because it was time for supper and another nurse came at 6 PM as well to evaluate her. At that time Ms. Munoz complaint of chest discomfort. When asked about Tylenol which she requested around 4 PM she stated I meant my heart is hurting not my head . She is describing this pain as reproducible, radiating towards her neck and left shoulder , not associated with orthopnea, PND, nausea, vomiting or diaphoresis. When nurse checked her blood pressure it was 200/98mmhg, hence decision was made to bring her to the hospital. Diagnostics in the ER revealed NSTEMI significant delta troponin however EKG is unremarkable showing sinus bradycardia with sinus arrhythmia patient has reproducible chest pain, normal hemodynamics, ACS protocol initiated Review of Systems Const: Reports: body aches, change in appetite and fatigue; Denies: fever(s) or chills Eyes: Denies: change in vision ENMT: Denies: throat pain Card: Reports: chest pain; Denies: lightheadedness, dyspnea on exertion or orthopnea Resp: Denies: dyspnea GI: Denies: abdominal pain : Denies: flank pain Musc: Reports: neck pain Skin/Breast: Reports: lesions Neuro: Denies: headache(s) Psych: Reports: memory loss; Denies: anxiety Endo: Denies: polyuria Juancho/Lymph: Denies: easy bruising All/Imm: Denies: urticaria Medications/Allergies Home Medications Medication Instructions Recorded Confirmed Last Taken Type aspirin 81 mg tablet,delayed 81 mg PO DAILY 12/13/19 04/30/20 04/27/20 History release calcitonin (salmon) 200 1 spray INTRANASAL (ALT) DAILY 12/13/19 04/30/20 04/29/20 History unit/actuation nasal spray calcium 600 mg-D3 800 unit-mag11 1 tab PO BID 12/13/19 04/30/20 04/28/20 History 50 kg-lyrw-wmtxqx-mirian-s.borat tablet levothyroxine 88 mcg capsule 88 mcg PO DAILY 12/13/19 04/30/20 04/30/20 History phenazopyridine 95 mg tablet 95 mg PO TID PRN 12/13/19 04/30/20 04/29/20 History citalopram 10 mg tablet 10 mg PO DAILY 01/23/20 04/30/20 04/29/20 History lysine 500 mg tablet 500 mg PO DAILY 01/23/20 04/30/20 04/29/20 History magnesium oxide 400 mg PO DAILY 01/23/20 04/30/20 04/29/20 History oxybutynin chloride 5 mg tablet 5 mg PO DAILY 01/23/20 04/30/20 04/28/20 History sumatriptan 20 mg/actuation nasal 20 mg INTRANASAL Q2H PRN 01/23/20 04/24/20 Unknown History spray cholecalciferol (vitamin D3) 2,000 unit PO DAILY 04/24/20 04/30/20 04/29/20 History [Vitamin D3] vitamin E 400 unit PO DAILY 04/24/20 04/30/20 04/29/20 History propranolol 40 mg PO BID 04/30/20 04/30/20 04/30/20 History acetaminophen 650 mg PO Q4H PRN #100 tab 05/06/20 Unknown Rx atorvastatin 40 mg PO BEDTIME #30 tab 05/06/20 Unknown Rx potassium chloride [Klor-Con M20] 20 meq PO BIDWM #60 tab 05/06/20 Unknown Rx Allergies Allergy/AdvReac Type Severity Reaction Status Date / Time No Known Allergies Allergy Verified 03/26/20 11:46 PFSH Acute PFSH: Medical History Atrial arrhythmia EKG from 12/26/2019 revealed sinus rhythm with a frequent PACs in the form of couplets. Reviewed ST-T changes. Poor R wave progression. Possible left atrial enlargement. Benign essential HTN Carotid stenosis Cataract Heart murmur IBS (irritable bowel syndrome) Left ventricular diastolic dysfunction Migraines Mitral regurgitation Radiation thyroiditis Unsteadiness on feet Surgical History H/O: hysterectomy History of bilateral breast implants Family History Mother CAD (coronary artery disease) Stroke Sister Cancer Other Hypertension Denies family history of Diabetes Clotting disorder Dementia Chronic kidney disease (CKD) Suicide Anesthesia complication Bleeding disorder Lung disease Social History Smoking and tobacco status: never smoked Alcohol intake: never History of recent travel: No Vitals/I&O/Wt Last Vital Signs Temp 98.1 F 05/17/20 19:09 Pulse 60 05/17/20 21:22 Resp 16 05/17/20 21:22 BP 143/80 05/17/20 21:22 Pulse Ox 97 05/17/20 21:22 Weight last 48 hrs Weight 68.039 kg Physical Exam Narrative: EXAM NARRATIVE: elderly female very pleasant during my evaluation Not complaining of active chest pain however it is reproducible Normal hemodynamics Saturating well on room air S1, S2 sinus rhythm Left carotid endarterectomy scar without any sensitization or drainage Bilateral breath sounds without adventitious rhonchi or crackles Abdomen soft nontender bowel sound present Lower extremity no edema gangrene or ulcer She has right-sided facial droop and mild sensory aphasia however able to express her needs no active slurring of speech, no new neurological deficits noted No new skin ulcers gangrene or cellulitis She seems to take more time to process information and answer Data : 05/17/20 20:42 05/17/20 21:21 A&P Assessment and plan (1) Acute non-ST elevation myocardial infarction (NSTEMI): NSTEMI Reproducible chest pain significant better troponin EKG showing sinus arrhythmia with bradycardia no ischemic or infarctive changes noted I will start her on ACS protocol with Lovenox, aspirin, Plavix lisinopril and Toprol Kindly consult cardiology in the morning for a possible angiogram, no urgent consultation needed at night Echo in the morning We will give her 1 dose of ketorolac for reproducible chest pain along Protonix Serial troponin and EKG Status: Acute Additional A&P Information Left carotid endarterectomy, postoperative complication of carotid dissection and CVA: Right-sided facial droop residual weakness with sensory aphasia: No acute decompensation Cardiac diet, patient is not complaining of active chest pain and currently on ACS protocol, will let her have cardiac diet for now, and most likely if she needs an angiogram it will be after 48 hours of ACS protocol DVT prophylaxis on therapeutic Lovenox Full code Attestations Medical Necessity Statement*: Anticipating stay in the hospital cross more than 2 midnights for NSTEMI management Time Spent in Patient Care: (>than 50% of time spent in counselling and/or direct pt care on unit). 50mins Coding Level of Care Code Acute Ent Surgeon for [place] Diagnoses Acute non-ST elevation myocardial infarction (NSTEMI) I21.4
[2020-05-17 23:48] LABS: Troponin 5 2HR 84.49 ng/L (0-10)
[2020-05-17 23:53] LABS: Troponin 5 2HR Delta 20.49 ABS# (0-10)
[2020-05-18] VITALS (22 sets, daily range): BP systolic 112–191; BP diastolic 54–91; PULSE 58–73; RESP 12–24; TEMP 36.6–36.9; O2SAT 92–100
--- NOTE | 2020-05-18 00:55 | ECG_ITS ---
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 Measurements Intervals [place] Rate: 58 P: 46 MA: 173 QRS: -7 QRSD: 85 T: 60 QT: 442 QTc: 436 Interpretive Statements SINUS BRADYCARDIA WITH SINUS ARRHYTHMIA POSSIBLE ANTERIOR MYOCARDIAL INFARCTION , OF INDETERMINATE AGE [30 ms Q WAVE IN V3/V4, OR R < 0.2 mV IN V4] INFERIOR MYOCARDIAL INFARCTION , PROBABLY OLD [40+ ms Q WAVE AND/OR ST/T ABNORMALITY IN II/aVF] Compared to ECG 05/17/2020 21:12:33 No significant changes Electronically Signed On 05-18-2020 16:11:55 PUBLIC HEALTH CLINICAL NURSE SPECIALIST by Ana Brock M.D. [id number]
--- NOTE | 2020-05-18 01:31 | PC.NURSE ---
NURSE NOTE: ADMISSION: PT ARRIVED TO UNIT AT APPROXIMATELY 0115 TODAY. ALERT AND ORIENTED X4/HAS PERIODS OF MILD APHAGIA D/T RECENT CVA-SPEECH CLEAR . ALL VS AND ASSESSMENTS CHARTED. DENIES CHEST PAIN AT THIS TIME. CURRENTLY RESTING WITH EYES CLOSED. NO DISTRESS NOTED AT THIS TIME.
[2020-05-18 01:40] LABS: Add Urine Microscopic? YES; Bilirubin Urine Neg (Negative); Blood Urine Neg (Negative); Glucose Urine UA Norm (Normal); Ketones Urine Negative (Negative); Leukocyte Esterase Urine Negative (Negative); Nitrate Urine Negative (Negative); Protein Urine Trace (Negative); Specific Gravity, Urine 1.016 (1.005-1.030); Urine Appearance Hazy (CLEAR); Urine Color Yellow (Yellow); Urobilinogen Urine Norm (Negative); pH Urine 5 (5-7)
[2020-05-18 01:48] LABS: Add Urine Culture? No; Bacteria Urine TRACE /hpf; Mucus Urine 3+ /hpf; RBC Urine 0-4 /hpf (0-2); Squamous Epithelial Cell Urine 0-4 /hpf (0-5)
--- NOTE | 2020-05-18 02:02 | PC.NURSE ---
NURSE NOTE: MEDICATION RECONCILIATION: UNABLE TO VERIFY HOME MEDICATIONS AT THIS TIME. PT CANNOT RECALL MEDS AND DID NOT BRING MEDS OR LIST.
--- NOTE | 2020-05-18 02:04 | USCV_ITS ---
Dalila Munoz Age: 79 Gender: F : 1940 Exam Date: 05/18/2020 06:04 Ordering Phys: Jennifer Smith MD Technologist: Gladis Singh Exam Location: [facility] [place]: NSTEMI BP: 176 / 84 HR: 64 Rhythm: Sinus Technical Quality: Very technically difficult study MEASUREMENTS (Male / Female) Normal Values 2D ECHO LV Diastolic Diameter PLAX 2.9 cm 4.2 - 5.9 / 3.9 - 5.3 cm LV Systolic Diameter PLAX 1.5 cm LV Chamber Size 2.8 cm IVS Diastolic Thickness 1.1 cm 0.6 - 1.0 / 0.6 - 0.9 cm IVS Systolic Thickness 0.9 cm LVPW Diastolic Thickness 1.2 cm 0.6 - 1.0 / 0.6 - 0.9 cm LVPW Systolic Thickness 1.1 cm RV Chamber Size 1.8 cm LVOT Diameter 2.0 cm LV Ejection Fraction 2D Teich 80.1 % LV Ejection Fraction MOD 2C 74.8 % LV Ejection Fraction 2C AL 75.1 % LA Diameter 2.8 cm LA Width 3.0 cm LA Height 2.7 cm RA Width 2.2 cm RA Height 3.7 cm Aorta at Sinotubular Diameter 2.8 cm M-MODE LV Diastolic Diameter MM 2.3 cm 4.2 - 5.9 / 3.9 - 5.3 cm LV Systolic Diameter MM 1.4 cm LV Ejection Fraction MM Teich 74.0 % IVS Diastolic Thickness MM 1.3 cm 0.6 - 1.0 / 0.6 - 0.9 cm IVS Systolic Thickness MM 1.3 cm LVPW Diastolic Thickness MM 1.1 cm 0.6 - 1.0 / 0.6 - 0.9 cm LVPW Systolic Thickness MM 1.3 cm RV Diastolic Diameter MM 0.9 cm Aortic Annulus Diameter 3.2 cm LA Ao Ratio MM 1.0 MV E Point Septal Separation 0.5 cm DOPPLER AV Peak Velocity 149.0 cm/s LVOT Peak Velocity 80.0 cm/s AV Area Cont Eq vti 2.0 cm squared AV Area Cont Eq pk 1.7 cm squared MV Area PHT 2.1 cm squared Mitral E to A Ratio 0.6 MV E' Velocity 28.5 cm/s Mitral E to MV E' Ratio 7.7 Mitral E to LV E' Lateral Ratio 10.1 Mitral E to LV E' Septal Ratio 6.2 TR Peak Velocity 169.6 cm/s TR Peak Gradient 11.5 mmHg TR Mean Velocity 158.8 cm/s TR Mean Gradient 10.8 mmHg TR Velocity Time Integral 43.0 cm Right Atrial Pressure 3.0 mmHg Pulmonary Artery Systolic Pressu 14.5 mmHg PV Peak Velocity 62.0 cm/s RV Acceleration Time 0.1 s RV Ejection Time 0.3 s RV AcT/ET 0.4 FINDINGS Left Ventricle Normal left ventricular cavity size and systolic function. Increased left ventricular wall thickness. Left ventricular ejection fraction is estimated at 65-70 %. There is possibly mild hypokinesis of inferior wall. Grade I diastolic dysfunction (abnormal relaxation filling pattern), normal to mildly elevated filling pressures. Right Ventricle Normal right ventricular size and systolic function. Right ventricular systolic pressure 14.5 mmHg. Right Atrium Probably normal right atrial size. Left Atrium Left atrium not well visualized. Probably normal left atrial size. Mitral Valve Mitral valve not well visualized. No mitral valve stenosis. No significant mitral valve regurgitation. Aortic Valve Aortic valve not well visualized. No aortic valve stenosis. No aortic valve regurgitation. Tricuspid Valve Tricuspid valve not well visualized. Pulmonic Valve Pulmonic valve not well visualized. Pericardium No pericardial effusion. Echo free space anterior to the right ventricle likely represents a fat pad. Aorta Aorta not well visualized. CONCLUSIONS 1. This is a technically very difficult study. Ultrasound enhancing agent ( Optison) was used. 2. Normal left ventricular cavity size and systolic function. Increased left ventricular wall thickness. Left ventricular ejection fraction is estimated at 65-70 %. There is possibly mild hypokinesis of inferior wall. Grade I diastolic dysfunction (abnormal relaxation filling pattern), normal to mildly elevated filling pressures. 3. Normal right ventricular size and systolic function. 4. Direct comparison to previous study is not possible given technically difficult study. Kelly Duong MD (Electronically Signed) Final Date: 18 May 2020 13:50 S
[2020-05-18] MEDS: enoxaparin 80 mg/0.8 mL Syringe 70 MG SUBCUT ×2 (02:32→13:39)
[2020-05-18] MEDS: clopidogrel 300 mg Tablet PO (02:32)
[2020-05-18] MEDS: dextrose 5%-sod chloride 0.45% 1,000 ML 30 ML IV (02:32)
[2020-05-18 04:24] LABS: Anion Gap 12.3 (5-19); Blood Urea Nitrogen 22 mg/dL (8-23); Carbon Dioxide 28 mmol/L (22-29); Chloride 103 mmol/L (98-107); Glucose 114 mg/dL (65-115); Osmolality Calculated 292 mOsm/kg (285-295); Potassium 4.3 mmol/L (3.5-5.1); Sodium 139 mmol/L (136-145)
[2020-05-18 04:48] LABS: Troponin 5 6HR 66.05 ng/L (0-10); Troponin 5 6HR Delta 2.05 ng/L (0-12)
[2020-05-18] MEDS: levothyroxine 88 mcg Tablet PO (06:28)
[2020-05-18] MEDS: ketorolac 30 mg/mL INJ 15 MG IVP (06:29)
[2020-05-18] MEDS: aspirin 81 mg EC Tablet PO (09:08)
[2020-05-18] MEDS: lisinopril 5 mg Tablet PO (09:08)
[2020-05-18] MEDS: metoprolol succinate ER (24 HR) 25 mg Tablet 12.5 MG PO (09:09)
[2020-05-18] MEDS: clopidogrel 75 mg Tablet PO (09:09)
--- NOTE | 2020-05-18 09:16 | PC.PHAR ---
pt states her daughter takes care of her medications-pts daughter mya states the kcl was dced on wed by -pts daughter states the amlodipine and xanax were dced-
[2020-05-18] MEDS: enalaprilat 1.25 mg/mL Inj IVP (10:33)
--- NOTE | 2020-05-18 10:42 | PM.CONSULT ---
Providers/Reason For Consult Consulting Physican/Specialty*: Dr. Duong, cardiology Reason for Consult*: Non-ST elevation [place] Attending Physician: Galindo Bianchi Primary Care Provider: Jakob Cole DO History of Present Illness History of Present Illness Dalila Munoz is a 79 year old female with past medical history of hypertension, history of atrial arrhythmias, carotid artery stenosis s/p left carotid endarterectomy (long 80% left ICA stenosis distal to left carotid bifurcation ) by Dr. Cabrales on 30 April 2020. 10 hours post operatively she developed aphasia and right-sided weakness and underwent CTA that revealed dissection and occlusion of left internal carotid artery at bifurcation. She was placed on heparin and over the next 36 hours she regained her baseline functional status. She was evaluated by Dr. Fung and the case was discussed with Dr. Hubbard and Dr. Medina at [facility] and medical management with heparinization was opted for. She was treated for possible pneumonia and discharged home on May 07 with aspirin and Lipitor 40 mg and amlodipine was discontinued to allow for permissive hypertension. She was discharged on propranolol 40 mg twice daily She saw Dr. Cole yesterday morning and after that participated in PT and OT and was really tired and drained out by the end of the day. Later on she mentioned to her daughter that she was having headaches and received Tylenol but when the nurse came to check on her she mentioned that she was having chest discomfort. Apparently on arrival the chest pain was pleuritic in nature and she received 1 dose of Toradol along with ACS protocol. Blood pressure on arrival to the ER this time was 233/98 mmHg. EKG showed sinus rhythm with normal axis possible anterior UT, probably old. QS complexes in lead III and aVF which are new as compared to her previous EKG on 02 May. This persisted on her subsequent EKGs. I have been asked to assist and evaluating further management. She is chest pain-free at the time of evaluation. Review of Systems General: Reports: 10 or more systems reviewed and unremarkable except in HPI and below Const: Reports: body aches, change in appetite and fatigue; Denies: fever(s) or chills Eyes: Denies: change in vision ENMT: Denies: throat pain Card: Reports: chest pain; Denies: lightheadedness, dyspnea on exertion or orthopnea Resp: Denies: dyspnea GI: Denies: abdominal pain : Denies: flank pain Musc: Reports: neck pain Skin/Breast: Reports: lesions Neuro: Denies: headache(s) Psych: Reports: memory loss; Denies: anxiety Endo: Denies: polyuria Juancho/Lymph: Denies: easy bruising All/Imm: Denies: urticaria Meds/Allergies Home Medications and Allergies Home Medications Medication Instructions Recorded Confirmed Last Taken Type aspirin 81 mg tablet,delayed 81 mg PO DAILY 12/13/19 05/18/20 04/27/20 History release calcitonin (salmon) 200 1 spray INTRANASAL (ALT) DAILY 12/13/19 05/18/20 04/29/20 History unit/actuation nasal spray levothyroxine 88 mcg capsule 88 mcg PO DAILY 12/13/19 05/18/20 04/30/20 History citalopram 10 mg tablet 10 mg PO BEDTIME 01/23/20 05/18/20 04/29/20 History lysine 500 mg tablet 500 mg PO DAILY 01/23/20 05/18/20 04/29/20 History magnesium oxide 400 mg PO DAILY 01/23/20 05/18/20 04/29/20 History vitamin E 400 unit PO DAILY 04/24/20 05/18/20 04/29/20 History propranolol See Rx Instructions .ROUTE .COMPLEX 04/30/20 05/18/20 05/17/20 History 20 mg acetaminophen 650 mg PO Q4H PRN #100 tab 05/06/20 05/18/20 Unknown Rx atorvastatin 40 mg PO BEDTIME #30 tab 05/06/20 05/18/20 Unknown Rx potassium chloride [Klor-Con M20] 20 meq PO BIDWM #60 tab 05/06/20 05/18/20 05/16/20 Rx calcium 1,200 mg PO DAILY 05/18/20 05/18/20 Unknown History cholecalciferol (vitamin D3) 50 mcg PO DAILY 05/18/20 05/18/20 Unknown History [Vitamin D3] cranberry fruit concentrate [Azo 250 mg PO EVERY OTHER DAY 05/18/20 05/18/20 Unknown History Cranberry] multivitamin 1 tab PO DAILY 05/18/20 05/18/20 Unknown History gmwcqnaanmrv-vcnwrmab-tegryi 1 tab PO DAILY 05/18/20 05/18/20 Unknown History [Vision Plus Lutein] oxybutynin chloride 5 mg PO EVERY OTHER DAY 05/18/20 05/18/20 Unknown History sumatriptan See Rx Instructions .ROUTE .COMPLEX 05/18/20 05/18/20 Unknown History Allergies Allergy/AdvReac Type Severity Reaction Status Date / Time No Known Allergies Allergy Verified 05/18/20 09:16 Current Medications Current Medications Generic Name Dose Route Start Last Admin Trade Name Freq PRN Reason Stop Dose Admin Aspirin 81 mg 05/18/20 09:00 05/18/20 09:08 Aspirin 81 Mg Ec Tablet PO 81 mg DAILY EMMANUEL Administration Clopidogrel Bisulfate 75 mg 05/18/20 09:00 05/18/20 09:09 Clopidogrel 75 Mg Tablet PO 75 mg DAILY EMMANUEL Administration Enalaprilat 1.25 mg 05/18/20 07:55 05/18/20 10:33 Enalaprilat 1.25 Mg/Ml Inj IVP 1.25 mg Q6H PRN Administration HYPERTENSION Enoxaparin Sodium 70 mg 05/18/20 02:04 05/18/20 02:32 Enoxaparin 80 Mg/0.8 Ml Syringe SUBCUT 70 mg Q12H EMMANUEL Administration Dextrose/Sodium Chloride 1,000 mls @ 30 mls/hr 05/18/20 02:04 05/18/20 02:32 Dextrose 5%-Sod Chloride 0.45% IV 30 mls/hr .Q24H EMMANUEL Administration Levothyroxine Sodium 88 mcg 05/18/20 06:00 05/18/20 06:28 Levothyroxine 88 Mcg Tablet PO 88 mcg QAM EMMANUEL Administration Lisinopril 5 mg 05/18/20 09:00 05/18/20 09:08 Lisinopril 5 Mg Tablet PO 5 mg DAILY EMMANUEL Administration Metoprolol Succinate 12.5 mg 05/18/20 09:00 05/18/20 09:09 Metoprolol Succinate Er (24 Hr) 25 Mg Tablet PO 12.5 mg DAILY EMMANUEL Administration PFSH Acute PFSH: Medical History Atrial arrhythmia EKG from 12/26/2019 revealed sinus rhythm with a frequent PACs in the form of couplets. Reviewed ST-T changes. Poor R wave progression. Possible left atrial enlargement. Benign essential HTN Carotid stenosis Cataract Heart murmur IBS (irritable bowel syndrome) Left ventricular diastolic dysfunction Migraines Mitral regurgitation Radiation thyroiditis Unsteadiness on feet Surgical History H/O: hysterectomy History of bilateral breast implants Family History Mother CAD (coronary artery disease) Stroke Sister Cancer Other Hypertension Denies family history of Diabetes Clotting disorder Dementia Chronic kidney disease (CKD) Suicide Anesthesia complication Bleeding disorder Lung disease Social History Smoking and tobacco status: never smoked Alcohol intake: never History of recent travel: No Vitals/I&O/Wt Last Vital Signs Temp 98.5 F 05/18/20 08:00 Pulse 61 05/18/20 10:35 Resp 24 H 05/18/20 08:00 BP 179/81 05/18/20 10:35 Pulse Ox 98 05/18/20 08:00 05/17/20 05/18/20 05/18/20 22:59 06:59 14:59 Intake Total 120 / 120 Balance 120 / 120 Weight last 48 hrs Weight 150 lb Physical Exam Narrative: EXAM NARRATIVE: GENERAL: Averagely built and averagely nourished in no acute distress HEENT: Pupils equal round reactive to light. No pallor or icterus. NECK: central trachea, no jugular venous distention, left neck well approximated incision from recent surgery CARDIOVASCULAR SYSTEM: S1-S2 regular. No S3 or S4 present. No murmur rubs or gallops. RESPIRATORY SYSTEM: Chest clear to auscultation. No wheezes rhonchi or rubs heard. No use of accessory muscles. ABDOMEN: Soft, nontender and nondistended. Normal bowel sounds present. EXTREMITIES: No cyanosis or clubbing. No edema. No signs of chronic venous insufficiency. WATERSHED TENDER: Patient is alert oriented ?3. Some difficulty with speech and facial droop noted SKIN: Normal turgor and temperature. No breakdown, rash or nail changes noted. PSYCH: Normal insight and judgment. Data Labs: Other Labs: Baseline troponin T of 64 at 2 hours of 84.5 and at 6 hours of 66. Imaging^: CXR: Radiologist's impression: IMPRESSION: 1. Persistent interstitial opacities of lower lungs greater on the right are similar which could reflect infiltrate, chronic changes or partial atelectasis. 2. Diminutive volume of left effusion. CT scan of head 02 May 2020 IMPRESSION: 1. No acute intracranial hemorrhage or edema. 2. Possible small subacute evolving infarct in the LEFT parietal subcortical white matter. CTA head and neck 30 April 2020 Left internal carotid artery: Cervical portion of the left internal carotid artery is occluded. There is partial filling of the left internal carotid artery in the carotid canal. Filling defects seen in that region could represent some clot or focal dissection. There is also filling defect in the cavernous and ophthalmic portions of the left internal carotid artery. The communicating left internal carotid artery is patent. Left middle cerebral artery: Unremarkable. No occlusion or significant stenosis. No aneurysm. Left anterior cerebral artery: Unremarkable. No occlusion or significant stenosis. No aneurysm IMPRESSION: Possible clot or dissection extending into the intracranial left ICA as described above IMPRESSION: Complete occlusion of the left internal carotid artery which should be due long segment occlusion versus dissection Other Data: Attestation for Other Data: I personally reviewed and interpreted the following: Other data: Lexiscan myocardial perfusion imaging 17 February 2020 IMPRESSIONS 1. Myocardial perfusion imaging revealing patchy areas of persistent decreased tracer uptake in the apical segments, suggestive of myocardial scarring versus attenuation artifact. 2. Normal LV ejection fraction of 82%. 3. LV wall motion analysis revealing no gross wall motion normalities. 4. Normal LV volume. No significant coronary ischemia, based on the above findings. Echocardiogram 14 February 2020 CONCLUSIONS Normal left ventricular size and systolic function, EF 69 %. Mild left ventricular hypertrophy. No regional wall motion abnormalities. Grade II/IV diastolic dysfunction, moderately elevated filling pressures. Mild mitral valve regurgitation. There is no pericardial effusion. There are no intracardiac masses. No previous study is available for comparison. Echocardiogram 18 May 2020 CONCLUSIONS 1. This is a technically very difficult study. Ultrasound enhancing agent ( Optison) was used. 2. Normal left ventricular cavity size and systolic function. Increased left ventricular wall thickness. Left ventricular ejection fraction is estimated at 65-70 %. There is possibly mild hypokinesis of inferior wall. Grade I diastolic dysfunction (abnormal relaxation filling pattern), normal to mildly elevated filling pressures. 3. Normal right ventricular size and systolic function. 4. Direct comparison to previous study is not possible given technically difficult study. A&P Assessment and plan (1) Acute non-ST elevation myocardial infarction (NSTEMI): Q-wave in inferior leads with possible mild hypokinesis of inferior wall and preserved LV function. -Patient as well as her daughter was available at bedside and I had a long discussion with them. Patient's mother had complications for coronary angiogram and given her recent surgery and postsurgical CVA Ivy is reluctant to undergo cardiac catheterization. -She has remained chest pain-free since her initial episode. She wants to continue with medical management for the time being. -Continue aspirin, Plavix, statin and therapeutic Lovenox for another day. -Start her on Imdur 30 mg daily. -Continue to monitor closely on telemetry and if she has recurrence of chest discomfort we will strongly consider coronary angiogram. This was conveyed to patient and her daughter and they are in agreement. Status: Acute (2) CVA (cerebral vascular accident): Status: Acute (3) Acute left arterial ischemic stroke, ICA (internal carotid artery): Status: Acute (4) Benign essential HTN: Blood pressure markedly elevated on arrival has improved some but still is uncontrolled. -Continue to monitor blood pressure and heart rate Status: Acute (5) Atrial arrhythmia: Status: Acute Additional A&P Information S/p left carotid endarterectomy Dyslipidemia Hypothyroidism Consult Attestations Medical Necessity Statement: Needs hospital stay for management of non-ST elevation UT Time Spent in Patient Care: Greater than 35 minutes (>than 50% of time spent in counselling and/or direct pt care on unit). Coding Level of Care Code Acute J[facility]aker for [place] Diagnoses Acute non-ST elevation myocardial infarction (NSTEMI) I21.4 CVA (cerebral vascular accident) I63.9 Acute left arterial ischemic stroke, ICA (internal carotid artery) I63.232 Benign essential HTN I10 Atrial arrhythmia I49.8
[2020-05-18] MEDS: perflutren protein-a microsphr 0.22 mg/mL SDV 3 mL IV (13:36)
--- NOTE | 2020-05-18 14:04 | PC.CHAP ---
Pastoral Care Encounter/Spiritual Assessment Type of Contact [] Declined vmware consultant visit [] Patient/Family/Request visit [] Outpatient visit [] Follow-up visit [] Physician referral [] Code/Alert [] Routine visit [] Staff referral [] Actively dying [] Patient sleeping [] Family support [] [] Out of room [] Palliative care [] [] Receiving care in room [] Pre-surgical visit [] Trauma [] Long length of stay [] ICU visit [] Other: Relational/Emotional Strength [] Patient feels connected with others/family/visitors/staff [] Distress [] Loneliness/isolation [] Abandonment Spirituality of Patient [] Person of Barbara [] Attends Zoroastrianism of their Barbara [] Believes in Prayer [] Reads Bible or Yazidism materials [] There are Spiritual issues to be addressed Fish Warden Interventions [] Prayer [] Active listening [] Non-anxious presence [] Spiritual/emotional support [] Crisis/trauma care [] Spiritual counseling [] Bereavement support [] Provided bereavement packet [] Provided Bible/devotional materials [] Provided toy/stuffed animal, coloring book to patient or family member [] Provided Communion [] Anointing/[facility] [] Salvation [] Completed spiritual assessment [] Other: Impact on Illness or Injury [] Angry [] Fearful [] Anxious [] Often cries [] Exhaustion [] Unable to work [] Unable to attend mosque [] Unable to walk/stand [] Unable to read [] Unable to drive [] Unable to eat/drink [] Unable to sleep [] Unable to be with family [] Patient intubated [] Other: Summary Med staff was giving numerous discharge instructions to patient so vmware consultant did not interrupt. Time spent with patient
--- NOTE | 2020-05-18 17:03 | P.PN_ITS ---
Subjective Subjective: Interval history: The patient is doing okay. She denies any active pain at this time. No lightheadedness or dizziness. No shortness of breath at rest. No nausea or vomiting. No fever or chills. Medications: Reviewed: Yes Medication Review Details: Generic Name Dose Route Start Last Admin Trade Name Freq PRN Reason Stop Dose Admin Aspirin 81 mg 05/18/20 09:00 05/18/20 09:08 Aspirin 81 Mg Ec Tablet PO 81 mg DAILY EMMANUEL Administration Clopidogrel Bisulf ate 75 mg 05/18/20 09:00 05/18/20 09:09 Clopidogrel 75 M g Tablet PO 75 mg DAILY EMMANUEL Administration Enalaprilat 1.25 mg 05/18/20 07:55 05/18/20 10:33 Enalaprilat 1.25 Mg/Ml Inj IVP 1.25 mg Q6H PRN Administration HYPERTENSION Enoxaparin Sodium 70 mg 05/18/20 02:04 05/18/20 13:39 Enoxaparin 80 Mg /0.8 Ml Syringe SUBCUT 70 mg Q12H EMMNAUEL Administration Dextrose/Sodium Ch loride 1,000 mls @ 30 ml s/hr 05/18/20 02:04 05/18/20 02:32 Dextrose 5%-Sod Chloride 0.45% IV 30 mls/hr .Q24H EMMANUEL Administration Levothyroxine Sodi um 88 mcg 05/18/20 06:00 05/18/20 06:28 Levothyroxine 88 Mcg Tablet PO 88 mcg QAM EMMANUEL Administration Lisinopril 5 mg 05/18/20 09:00 05/18/20 09:08 Lisinopril 5 Mg Tablet PO 5 mg DAILY EMMANUEL Administration Metoprolol Succina te 12.5 mg 05/18/20 09:00 05/18/20 09:09 Metoprolol Succi keyur Er (24 Hr) 25 Mg Tablet PO 12.5 mg DAILY EMMANUEL Administration Vitals/I&O/Wt Last Vital Signs Temp 98.0 F 05/18/20 15:23 Pulse 63 05/18/20 15:23 Resp 14 05/18/20 15:23 BP 136/66 05/18/20 15:23 Pulse Ox 100 05/18/20 15:23 05/18/20 05/18/20 05/18/20 06:59 14:59 22:59 Intake Total 480 / 480 Balance 480 / 480 Weight last 48 hrs Weight 68.039 kg Physical Exam Narrative: EXAM NARRATIVE: The patient is awake alert oriented. No acute distress. Mood and affect are appropriate. Skin warm and dry. Moist mucous membranes. Neck supple. No JVD Lungs clear Heart S1, S2, regular Abdomen soft, nontender, bowel sounds are present Extremities trace edema, no cyanosis or calf tenderness bilaterally Data : 05/17/20 20:42 05/18/20 03:32 A&P Assessment and plan (1) Acute non-ST elevation myocardial infarction (NSTEMI): NSTEMI Reproducible chest pain significant better troponin EKG showing sinus arrhythmia with bradycardia no ischemic or infarctive changes noted I will start her on ACS protocol with Lovenox, aspirin, Plavix lisinopril and Toprol Kindly consult cardiology in the morning for a possible angiogram, no urgent co nsultation needed at night Echo in the morning We will give her 1 dose of ketorolac for reproducible chest pain along Protonix Serial troponin and EKG Status: Acute Additional A&P Information Left carotid endarterectomy, postoperative complication of carotid dissection and CVA: Right-sided facial droop residual weakness with sensory aphasia: No acute decompensation Cardiac diet, patient is not complaining of active chest pain and currently on ACS protocol, will let her have cardiac diet for now, and most likely if she needs an angiogram it will be after 48 hours of ACS protocol DVT prophylaxis on therapeutic Lovenox Full code [place] Non-ST elevation PR. Appreciate Dr. Duong's help and recommendations. We will continue current management for now which includes full anticoagulation with Lovenox, Plavix and aspirin, small dose of beta-juliano, statin, Imdur. Hypertension. Improved control. Continue current management. Recent CVA and carotid endarterectomy. Stable. The wound looks okay. The plan of care was discussed with the patient. She verbalized understanding and agreement. Attestations Medical Necessity Statement*: Continuing adjustments of her cardiac medications. Testing is pending. Might need cardiac angiogram Coding Level of Care Code Acute Machine Tool Dresser for [place] Diagnoses Acute non-ST elevation myocardial infarction (NSTEMI) I21.4
[2020-05-18] MEDS: isosorbide mononitrate ER 30 mg Tablet PO (17:53)
--- NOTE | 2020-05-18 18:00 | PC.NURSE ---
Dr. Bianchi notified that patient SBP>160. Imdur scheduled to start in am. Verbal order to give one time dose of imdur 30 mg now. RBVO. Nurse to continue to monitor.
[2020-05-18] MEDS: atorvastatin 40 mg Tablet 80 MG PO (20:52)
--- NOTE | 2020-05-18 21:24 | PC.NURSE ---
NURSING NOTE: ASSUMED CARE OF PATIENT AT 1900 TODAY. PT ALERT AND ORIENTED X4; MOVES ALL EXTREMITIES AND FOLLOWS COMMANDS. DENIES PAIN OR NEEDS AT THIS TIME. ALL VS AND ASSESSMENTS CHARTED. NO DISTRESS NOTED AT THIS TIME.
[2020-05-19] VITALS (7 sets, daily range): BP systolic 116–161; BP diastolic 51–74; PULSE 62–77; RESP 18; TEMP 36.8–37; O2SAT 94–98
[2020-05-19] MEDS: dextrose 5%-sod chloride 0.45% 1,000 ML 30 ML IV (01:21)
[2020-05-19] MEDS: enoxaparin 80 mg/0.8 mL Syringe 70 MG SUBCUT (01:22)
[2020-05-19 05:40] LABS: Basophils # 0.1 10^3/uL (0.0-0.1); Basophils % 1.3 %; Eosinophils # 0.2 10^3/uL (0.0-0.8); Eosinophils % 3.8 %; Hemoglobin 11.5 g/dL (11.5-15.3); Lymphocytes # 1.5 10^3/uL (0.8-4.8); Lymphocytes % 23.8 %; Mean Corpuscular HGB Conc 31.9 g/dL (30.0-36.0); Mean Corpuscular Hemoglobin 29.6 pg (28.0-34.0); Mean Corpuscular Volume 92.8 fL (81-99); Mean Platelet Volume 10.4 fL (7.4-10.4); Monocytes # 0.7 10^3/uL (0.2-0.9); Monocytes % 11.4 %; Neutrophils # 3.74 10^3/uL (1.8-7.7); Neutrophils % 59.5 %; Nucleated Red Blood Cells % 0 %; Platelet Count 286 10^3/cmm (130-400); Red Blood Count 3.88 10^6/uL (4.1-5.3); Red Cell Distribution Width 14.5 % (12.1-15.1); White Blood Count 6.3 10^3/uL (4.0-10.0)
[2020-05-19 06:16] LABS: Albumin Level 3.7 g/dL (3.5-5.2); Anion Gap 15.9 (5-19); Blood Urea Nitrogen 18 mg/dL (8-23); Calcium 8.9 mg/dL (8.5-10.5); Carbon Dioxide 25 mmol/L (22-29); Chloride 105 mmol/L (98-107); Creatinine Clr Calc Pharmacy 54.3784; Glucose 104 mg/dL (65-115); Potassium 3.9 mmol/L (3.5-5.1); Sodium 142 mmol/L (136-145)
[2020-05-19] MEDS: levothyroxine 88 mcg Tablet PO (06:17)
[2020-05-19] MEDS: lisinopril 5 mg Tablet PO ×2 (08:18→10:19)
[2020-05-19] MEDS: isosorbide mononitrate ER 30 mg Tablet PO (08:18)
[2020-05-19] MEDS: clopidogrel 75 mg Tablet PO (08:18)
[2020-05-19] MEDS: metoprolol succinate ER (24 HR) 25 mg Tablet PO (08:19)
[2020-05-19] MEDS: aspirin 81 mg EC Tablet PO (08:19)
--- NOTE | 2020-05-19 09:23 | PC.NURSE ---
Discussed with Dr. Bianchi: Patient received 5mg lisinopril prior to his change in order this morning increasing the dose to 10mg. One time order for 5 mg more to be given this morning.
--- NOTE | 2020-05-19 11:32 | P.PN_ITS ---
Subjective Subjective: Interval history: No new complaints overnight. She is eager to go home. No events on telemetry Medications: Reviewed: Yes Medication Review Details: Current Medications Aspirin (Aspirin 81 Mg Ec Tablet) 81 mg PO DAILY [facility] Last Admin: 05/19/20 08:19 Dose: 81 mg Documented by: Atorvastatin Calcium (Atorvastatin 40 Mg Tablet) 80 mg PO BEDTIME [facility] Last Admin: 05/18/20 20:52 Dose: 80 mg Documented by: Clopidogrel Bisulfate (Clopidogrel 75 Mg Tablet) 75 mg PO DAILY [facility] Last Admin: 05/19/20 08:18 Dose: 75 mg Documented by: Enalaprilat (Enalaprilat 1.25 Mg/Ml Inj) 1.25 mg IVP Q6H PRN PRN Reason: HYPERTENSION Last Admin: 05/18/20 10:33 Dose: 1.25 mg Documented by: Enoxaparin Sodium (Enoxaparin 80 Mg/0.8 Ml Syringe) 70 mg SUBCUT Q12H [facility] Last Admin: 05/19/20 01:22 Dose: 70 mg Documented by: Dextrose/Sodium Chloride (Dextrose 5%-Sod Chloride 0.45%) 1,000 mls @ 30 mls/hr IV .Q24H [facility] Last Admin: 05/19/20 01:21 Dose: 30 mls/hr Documented by: Isosorbide Mononitrate (Isosorbide Mononitrate Er 30 Mg Tablet) 30 mg PO DAILY [facility] Last Admin: 05/19/20 08:18 Dose: 30 mg Documented by: Levothyroxine Sodium (Levothyroxine 88 Mcg Tablet) 88 mcg PO QAM [facility] Last Admin: 05/19/20 06:17 Dose: 88 mcg Documented by: Lisinopril (Lisinopril 10 Mg Tablet) 10 mg PO DAILY [facility] Last Admin: 05/19/20 10:21 Dose: Not Given Documented by: Metoprolol Succinate (Metoprolol Succinate Er (24 Hr) 25 Mg Tablet) 25 mg PO DAILY [facility] Last Admin: 05/19/20 08:19 Dose: 25 mg Documented by: Vitals/I&O/Wt Last Vital Signs Temp 98.4 F 05/19/20 11:29 Pulse 77 05/19/20 11:29 Resp 18 05/19/20 11:29 BP 128/71 05/19/20 11:29 Pulse Ox 95 05/19/20 11:29 05/18/20 05/19/20 05/19/20 22:59 06:59 14:59 Intake Total 120 / 600 684.5 / 1284.5 Balance 120 / 600 684.5 / 1284.5 Weight last 48 hrs Weight 150 lb Physical Exam Narrative: EXAM NARRATIVE: GENERAL: Averagely built and averagely nourished in no acute distress HEENT: Pupils equal round reactive to light. No pallor or icterus. NECK: central trachea, no jugular venous distention, left neck well approximated incision from recent surgery CARDIOVASCULAR SYSTEM: S1-S2 regular. No S3 or S4 present. No murmur rubs or gallops. RESPIRATORY SYSTEM: Chest clear to auscultation. No wheezes rhonchi or rubs heard. No use of accessory muscles. ABDOMEN: Soft, nontender and nondistended. Normal bowel sounds present. EXTREMITIES: No cyanosis or clubbing. No edema. No signs of chronic venous insufficiency. STUDENT AFFAIRS VICE PRESIDENT: Patient is alert oriented ?3. Some difficulty with speech and facial droop noted SKIN: Normal turgor and temperature. No breakdown, rash or nail changes noted. PSYCH: Normal insight and judgment. Data : 05/19/20 03:26 05/19/20 03:26 A&P Assessment and plan (1) Acute non-ST elevation myocardial infarction (NSTEMI): Q-wave in inferior leads with possible mild hypokinesis of inferior wall and preserved LV function. -Patient as well as her daughter was available at bedside and I had a long discussion with them. Patient's mother had complications for coronary angiogram and given her recent surgery and postsurgical CVA Ivy is reluctant to undergo cardiac catheterization. -She has remained chest pain-free since her initial episode. She wants to continue with medical management for the time being. -Continue aspirin, Plavix, statin and may stop Lovenox after dose today. Continue DAPT for 1 year if possible. -Continue metoprolol and Imdur 30 mg daily. -Continue to monitor closely on telemetry and if she has recurrence of chest discomfort we will strongly consider coronary angiogram. This was conveyed to patient and her daughter and they are in agreement. Patient seems to be stable to be discharged home today. -Discharge on aspirin 81, Plavix 75, metoprolol succinate 25, Imdur 30 mg, Lipitor 40 mg. -Follow-up with Dr. [facility] in 2 weeks. -They were advised to watch out for any signs of bleeding (hematuria, melena, hematochezia). -) Monitoring blood pressure and heart rate closely at home. Status: Acute (2) CVA (cerebral vascular accident): Status: Acute (3) Acute left arterial ischemic stroke, ICA (internal carotid artery): Status: Acute (4) Benign essential HTN: Blood pressure markedly elevated on arrival has improved some since then. -Continue to monitor blood pressure and heart rate Status: Acute (5) Atrial arrhythmia: Status: Acute Additional A&P Information S/p left carotid endarterectomy Dyslipidemia Hypothyroidism Attestations Medical Necessity Statement*: Stable to be discharged home from cardiac standpoint Time Spent in Patient Care: 16 - 35 minutes (>than 50% of time spent in counselling and/or direct pt care on unit) . Coding Level of Care Code Acute Clerk Travel Reservations for [place] Diagnoses Acute non-ST elevation myocardial infarction (NSTEMI) I21.4 CVA (cerebral vascular accident) I63.9 Acute left arterial ischemic stroke, ICA (internal carotid artery) I63.232 Benign essential HTN I10 Atrial arrhythmia I49.8
--- NOTE | 2020-05-19 12:18 | PM.DCS ---
Discharge Providers Date of Admission: 05/17/20 23:32 Date of Discharge: May 19, 2020 Attending Provider at Admission: Jennifer Smith MD Attending Provider at Discharge: Galindo Bianchi Primary Care Provider: Jakob Cole DO Diagnoses at Discharge Discharge Diagnosis (1) Acute non-ST elevation myocardial infarction (NSTEMI): Status: Acute (2) CVA (cerebral vascular accident): Status: Acute (3) Acute left arterial ischemic stroke, ICA (internal carotid artery): Status: Acute (4) Benign essential HTN: Status: Acute (5) Atrial arrhythmia: Status: Acute Permanent problem details: EKG from 12/26/2019 revealed sinus rhythm with a frequent PACs in the form of couplets. Reviewed ST-T changes. Poor R wave progression. Possible left atrial enlargement. Reason for Visit Reason for Visit: CHEST PAIN Hospital Course Hospital Course See patient's H&P, consult notes, progress notes for more details. Dalila Munoz is a 79 year old female who was recently admitted for planned left carotid endarterectomy, unfortunately after the procedure she started complaining of headache and code stroke was called for sensory aphasia and right-sided facial droop. Consequently she was discharged home after improvement of her symptoms. 3 days later she developed chest pain for which she was brought to emergency room. Discharge diagnoses and problem list Non-ST elevation FL. Seen and evaluated by Dr. Duong. The patient and her family were reluctant with any additional procedures. Conservative management was recommended. However she will need to continue close follow-up with her technical photographer. We will continue current management for now which includes Plavix and aspirin, small dose of beta-juliano, statin, Imdur, lisinopril. Uncontrolled hypertension. Improved control. Continue current management. Further adjustments to medications might be necessary. Recent CVA and carotid endarterectomy. Stable. The wound looks okay. She will follow-up with her surgeon after discharge. Today she is feeling well. Denies any active complaints. Denies chest pain or shortness of breath. No headache. No new weakness. Eager to go home. Cleared by card for DC. Physical Exam Narrative: EXAM NARRATIVE: The patient is awake alert oriented. No acute distress. Mood and affect are appropriate. Skin warm and dry. Moist mucous membranes. Neck supple. No JVD Lungs clear Heart S1, S2, regular Abdomen soft, nontender, bowel sounds are present Extremities trace edema, no cyanosis or calf tenderness bilaterally Discharge Data Data Completed and Pending: Completed Studies During Hospitalization Category Date Time Status XR chest 1V amelia ble [id number] Stat Exams 05/17/20 18:54 Completed CV echo wo/w cont rast [id number] Routine Ultrasound 05/18/20 02:04 Completed Pending at discharge Category Date Time Status Renal Function Pa domi AM LABS Lab 05/20/20 04:00 Ordered US/CV paperwork R outine Ultrasound 05/18/20 Taken Labs from last 24 hours 05/19/20 05/19/20 03:26 03:26 WBC 6.3 RBC 3.88 L Hgb 11.5 Hct 36.0 L MCV 92.8 MCH 29.6 MCHC 31.9 RDW 14.5 Plt Count 286 MPV 10.4 Neut % (Auto) 59.5 Lymph % (Auto) 23.8 [place] % (Auto) 11.4 Eos % (Auto) 3.8 Baso % (Auto) 1.3 Neut # (Auto) 3.74 Lymph # (Auto) 1.5 [place] # (Auto) 0.7 Eos # (Auto) 0.2 Baso # (Auto) 0.1 Nucleated RBC % (a uto) 0 Nucleated RBCs # 0.0 Sodium 142 Potassium 3.9 Chloride 105 Carbon Dioxide 25 Anion Gap 15.9 BUN 18 Creatinine 0.8 GFR Calculation Not Reportable Glucose 104 Calcium 8.9 Phosphorus 3.0 Magnesium 2.0 Albumin 3.7 Vitals: Last Vital Signs Temp 98.4 F 05/19/20 11:29 Pulse 77 05/19/20 11:29 Resp 18 05/19/20 11:29 BP 128/71 05/19/20 11:29 Pulse Ox 95 05/19/20 11:29 Discharge Plan Discharge Patient Disposition: Home Condition: Stable Prescriptions: New clopidogrel 75 mg Tablet 75 mg PO DAILY Qty: 30 RF: 0 atorvastatin 40 mg Tablet 80 mg PO BEDTIME Qty: 30 RF: 0 isosorbide mononitrate 30 mg Tablet Extended Release 24 Hr 30 mg PO DAILY Qty: 30 RF: 0 metoprolol succinate 25 mg Tablet Extended Release 24 Hr 25 mg PO DAILY Qty: 30 RF: 0 lisinopril 5 mg tablet 5 mg PO DAILY Qty: 30 RF: 0 Continued citalopram 10 mg tablet 10 mg PO BEDTIME RF: 0 magnesium oxide 400 mg magnesium tablet 400 mg PO DAILY RF: 0 lysine [L-Lysine] 500 mg tablet 500 mg PO DAILY RF: 0 calcitonin (salmon) 200 unit/actuation spray,non-aerosol 1 spray intranasal (ALT) DAILY RF: 0 levothyroxine 88 mcg capsule 88 mcg PO DAILY RF: 0 aspirin [Adult Aspirin Regimen] 81 mg tablet,delayed release (DR/EC) 81 mg PO DAILY RF: 0 multivitamin Tablet 1 tab PO DAILY RF: 0 calcium 600 mg Capsule 1,200 mg PO DAILY RF: 0 oxybutynin chloride 5 mg tablet extended release 24hr 5 mg PO EVERY OTHER DAY RF: 0 sumatriptan 20 mg/actuation spray,non-aerosol See Rx Instructions .ROUTE .COMPLEX RF: 0 Vision Plus Lutein Tablet 1 tab PO DAILY RF: 0 Vitamin D3 50 mcg (2,000 unit) Tablet 50 mcg PO DAILY RF: 0 Azo Cranberry 250 mg Tablet,Chewable 250 mg PO EVERY OTHER DAY RF: 0 vitamin E 400 unit Capsule 400 unit PO DAILY RF: 0 acetaminophen 325 mg Tablet 650 mg PO Q4H PRN (Reason: Mild Pain Or Increase Temp) Qty: 100 RF: 5 Discontinued propranolol 40 mg tablet See Rx Instructions .ROUTE .COMPLEX RF: 0 atorvastatin 40 mg Tablet 40 mg PO BEDTIME Qty: 30 RF: 5 potassium chloride [Klor-Con M20] 20 mEq Tablet,Er Particles/Crystals 20 meq PO BIDWM Qty: 60 RF: 0 Discharge Orders: Discharge Order (Routine); Ordered 05/19/20 Ordered By: Galindo Bianchi Other Ambulatory Orders: Complete Blood Count w/Auto (Routine) Timeframe: 1 Month Location: Determined by Patient Ordered By: Galindo Bianchi Comprehensive Metabolic Panel (Routine) Timeframe: 1 Week Facility: [facility] - Location: Lab - Main Lab Ordered By: Galindo Bianchi Referrals: Kelly Duong MD [Physician] - 2 weeks Discharge Diet: Cardiac Discharge Activity: Increase activity as tolerated Patient Instructions: Metoprolol (By mouth), Lisinopril (By mouth), Isosorbide Mononitrate (By mouth), Atorvastatin (By mouth), Clopidogrel (By mouth), Chest Pain (DC), Chest Pain Stoplight Activity Restrictions/Additional Instructions: Please follow-up with your technical photographer and your primary care physician after discharge. Please come back to emergency room if develop any new chest pain, shortness of breath, diaphoresis, weakness or dizziness, any signs of bleeding, any other type of pain or any other new complaints. 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
--- NOTE | 2020-05-19 14:12 | PC.NURSE ---
1235 - New prescriptions called to [facility] pharmacy per pt request due to [facility] being closed on Thursday. Meds had already been transmitted to [facility] per discharging physician. 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
== END 2020-05-19 13:55 | disposition home or self-care (01) | DRG 280 ==
LOC: ER 18:59 → CSU 05-18 00:26
PROVIDERS: Admitting Provider Internal Medicine; Emergency Provider Emergency Medicine; PCP Internal Medicine; Visit Provider Internal Medicine
DX: I21.4 Non-ST elevation (NSTEMI) myocardial infarction (principal); I63.232 Cerebral infarction due to unspecified occlusion or stenosis of left carotid arteries; I69.351 Hemiplegia and hemiparesis following cerebral infarction affecting right dominant side; I11.0 Hypertensive heart disease with heart failure; K58.9 Irritable bowel syndrome, unspecified; G43.909 Migraine, unspecified, not intractable, without status migrainosus; I34.0 Nonrheumatic mitral (valve) insufficiency; E06.4 Drug-induced thyroiditis; I69.392 Facial weakness following cerebral infarction; I69.320 Aphasia following cerebral infarction; Z87.01 Personal history of pneumonia (recurrent); Z79.82 Long term (current) use of aspirin
CPT/HCPCS: 36415; 71045; 80048; 80053; 80069; 81001; 83690; 83735; 83880; 84484; 85025; 85610; 93005; 93306; 96372; 99285; C8929; J1650; J1885; J3490; J7799; Q9956

== ENCOUNTER → 2020-05-23 11:09 | Outpatient (BNVA) | payer MEDICARE, SELFPAY | PROVIDERS: PCP Internal Medicine; Visit Provider Nurse Practitioner | DX: I69.320 Aphasia following cerebral infarction (principal); I69.319 Unspecified symptoms and signs involving cognitive functions following cerebral infarction; I69.398 Other sequelae of cerebral infarction; H53.8 Other visual disturbances; I65.22 Occlusion and stenosis of left carotid artery | CPT/HCPCS: 99204; 99205 ==

== ENCOUNTER 2020-06-11 10:16 | Outpatient (CLI) | payer MEDICARE, SELFPAY ==
--- NOTE | 2020-06-11 10:15 | USCV_ITS ---
Alexander Dalila Age: 79 Gender: F : 1940 Exam Date: 06/11/2020 10:37 Ordering Phys: Alejo Cabrales MD (Andy) ([email or web address] [place] Technologist: Tyrel Burnett [place] [facility] [place] S/P LEFT CEA WITH OCCLUSION Risk Factors: Previous Vascular Surgery: Right Brachial BP: / Left Brachial BP: / Right Left Velocity (cm/s) Spectral Plaque Velocity (cm/s) Spectral Plaque Syst/Diast Broadening Syst/Diast Broadening / Prox CCA 43.30 / 7.50 87.00/ 17.90 Mid CCA 26.80 / 5.00 114.50/18.80 Distal CCA 32.60 / 4.30 118.00/26.50 Prox ICA / 81.10/ 23.40 Mid ICA / 75.60/ 22.60 Distal ICA / 148.80 ECA 615.20 1.36 ICA/CCA Antegrade Vertebral Antegrade 65.80/ 16.20 cm/s 56.70/ 18.60 cm/s Bi Subclavian Bi 94.80 94.80 CONCLUSIONS Known left ICA occlusion Right ICA stenosis <50%. Moderate atheromatous plaque right carotid bulb/ICA. Normal antegrade Doppler flow noted in the right vertebral artery. Normal antegrade Doppler flow noted in the left vertebral artery. Jose Trinidad MD (Electronically Signed) Final Date: 11 June 2020 17:53 S
== END 2020-06-11 10:17 | disposition home or self-care (01) ==
LOC: US 10:17
PROVIDERS: PCP Internal Medicine; Visit Provider Thoracic Surgery (Cardiothoracic Vascular Surgery)
DX: I63.232 Cerebral infarction due to unspecified occlusion or stenosis of left carotid arteries (principal)
CPT/HCPCS: 93880

== ENCOUNTER 2020-06-20 09:27 | Outpatient (RCR) | payer MEDICARE, SELFPAY | END 2020-06-27 23:59 | disposition home or self-care (01) | LOC: SR3 09:27 | PROVIDERS: PCP Internal Medicine; Referring Provider Internal Medicine; Visit Provider Internal Medicine | DX: I77.71 Dissection of carotid artery (principal) | CPT/HCPCS: 92507; 92523 ==

== ENCOUNTER 2020-06-28 06:00 | Outpatient (RCR) | payer MEDICARE, SELFPAY | END 2020-07-27 23:59 | disposition home or self-care (01) | LOC: SR3 06:00 | PROVIDERS: PCP Internal Medicine; Referring Provider Internal Medicine; Visit Provider Internal Medicine | DX: I77.71 Dissection of carotid artery (principal) | CPT/HCPCS: 92507; 97110; 97112; 97161; 97165; 97530 ==

== ENCOUNTER 2020-07-05 10:41 | Emergency (ER) | payer MEDICARE, SELFPAY ==
[2020-07-05] VITALS (12 sets, daily range): BP systolic 84–224; BP diastolic 41–130; PULSE 16–63; RESP 16–52; TEMP 36.6; O2SAT 95–96; BMI 26.6
--- NOTE | 2020-07-05 10:56 | XR_ITS ---
WS: [id number] Portable AP upright chest, 07/05/2020 Clinical Data: reduced breath sounds Comparison: Portable chest, 05/17/2020. Findings: No nodules, masses or effusions are seen. The heart is normal. The pulmonary vascularity is not increased. No pneumonia or pneumothorax is seen. The aortic arch and descending aorta are tortuo us. Monitor leads are on the chest wall. XR/XR chest 1V portable [id number] Impression: Atherosclerosis.
--- NOTE | 2020-07-05 10:56 | ECG_ITS ---
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 Measurements Intervals [place] Rate: 62 P: 41 AR: 159 QRS: -24 QRSD: 91 T: 87 QT: 418 QTc: 425 Interpretive Statements SINUS RHYTHM WITH OCCASIONAL SUPRAVENTRICULAR PREMATURE COMPLEXES POSSIBLE ANTERIOR MYOCARDIAL INFARCTION , OF INDETERMINATE AGE [30 ms Q WAVE IN V3/V4, OR R < 0.2 mV IN V4] Compared to ECG 05/18/2020 00:51:55 Sinus bradycardia no longer present Sinus arrhythmia no longer present Myocardial infarct finding still present Electronically Signed On 07-05-2020 21:06:19 CDT by Kelly Duong M.D. [email or web address]
[2020-07-05 11:17] LABS: Basophils # 0.1 10^3/uL (0.0-0.1); Eosinophils # 0.2 10^3/uL (0.0-0.8); Eosinophils % 4.2 %; Hematocrit 43.2 % (37.0-47.0); Hemoglobin 13.7 g/dL (11.5-15.3); Lymphocytes # 1.4 10^3/uL (0.8-4.8); Lymphocytes % 27.4 %; Mean Corpuscular HGB Conc 31.7 g/dL (30.0-36.0); Mean Corpuscular Hemoglobin 29.2 pg (28.0-34.0); Mean Corpuscular Volume 92.1 fL (81-99); Mean Platelet Volume 10.3 fL (7.4-10.4); Monocytes # 0.5 10^3/uL (0.2-0.9); Monocytes % 10.6 %; Neutrophils # 2.83 10^3/uL (1.8-7.7); Neutrophils % 56.6 %; Nucleated Red Blood Cells % 0 %; Platelet Count 224 10^3/cmm (130-400); Red Blood Count 4.69 10^6/uL (4.1-5.3); Red Cell Distribution Width 13.4 % (12.1-15.1)
[2020-07-05] MEDS: aspirin 81 mg Chew Tablet 324 MG PO (11:20)
--- NOTE | 2020-07-05 11:21 | W.ED.GENADLT ---
HPI - General Adult General: Chief complaint: General Medical Stated complaint: HYPERTENSION Time Seen by Provider: 07/05/20 10:56 History of Present Illness: HPI narrative: 80-year-old female with past medical history hypertension, CVA, left carotid endarterectomy on April 30 with postop dissection and rupture that resulted in a stroke, irritable bowel syndrome, NSTEMI. She comes to the ER today complaining of severely elevated blood pressure at home and epigastric discomfort. She says her blood pressure at home was 250/140 and she was advised to call EMS by her primary if she had elevated blood pressure with belly pain. EMS arrived and got a blood pressure of 240/110. She says she is compliant with her medications. She takes isosorbide, lisinopril, metoprolol. On arrival to the ED her blood pressure is much improved initially at 157/130 she says her belly pain is better as well. Repeat 15 minutes later 224/83. Location: abdomen Severity: severe Pain Consistency: intermittent Associated symptoms: Reports no associated symptoms; Deny chest pain, confusion, dyspnea, headache(s), rash or palpitations Review of Systems General: Reports: 10 or more systems reviewed and unremarkable except in HPI and below Const: Denies: fatigue Eyes: Denies: change in vision, blurry vision or eye redness ENMT: Denies: throat pain, swelling of lips/tongue, ear or mastoid pain or nasal congestion Card: Denies: chest pain, palpitations, irregular heart rhythm, edema, dyspnea on exertion or orthopnea Resp: Denies: dyspnea, productive cough or non-productive cough GI: Denies: abdominal pain, diarrhea or GI cramping : Denies: flank pain, difficulty voiding, urinary frequency or urinary urgency Musc: Denies: neck pain, back pain, extremity pain, joint pain, joint redness, limited range of motion or muscle weakness Skin/Breast: Denies: rash, pruritus, erythema, skin pain or skin tenderness Neuro: Denies: headache(s), numbness in extremities, weakness in extremities, sensory changes, difficulty walking, dizziness, confusion or Slurred speech present Psych: Denies: anxiety or depression Endo: Denies: polyuria All/Imm: Denies: urticaria, throat swelling or tongue swelling PFSH ED PFSH: Medical History Acute left arterial ischemic stroke, ICA (internal carotid artery) Atrial arrhythmia EKG from 12/26/2019 revealed sinus rhythm with a frequent PACs in the form of couplets. Reviewed ST-T changes. Poor R wave progression. Possible left atrial enlargement. Benign essential HTN Carotid stenosis Cataract CVA (cerebral vascular accident) Dissection of carotid artery Heart murmur Hypokalemia IBS (irritable bowel syndrome) Left carotid artery occlusion Left ventricular diastolic dysfunction Migraines Mitral regurgitation Pneumonia Radiation thyroiditis Respiratory failure Unsteadiness on feet Surgical History H/O: hysterectomy History of bilateral breast implants Family History Mother CAD (coronary artery disease) Stroke Sister Cancer Other Hypertension Denies family history of Diabetes Clotting disorder Dementia Chronic kidney disease (CKD) Suicide Anesthesia complication Bleeding disorder Lung disease Social History Smoking and tobacco status: never smoked Alcohol intake: never History of recent travel: No Physical Exam Const: COMMON NORMALS: no acute distress, average body habitus, patient oriented x3, no limitations, healthy appearing, alert and well nourished GENERAL APPEARANCE: cooperative, comfortable, well kempt and well developed ORIENTATION/CONSCIOUSNESS: Yes awake, Yes oriented to person, Yes oriented to place and Yes oriented to time HENMT: COMMON NORMALS: normocephalic, external ears normal and Normal external nose present HEAD & SCALP: normal to inspection and normocephalic NOSE: Normal external nose present EXTERNAL EAR: Yes external ears normal MOUTH: Normal oral and palatal mucosa present THROAT: posterior oropharynx normal Eye: COMMON NORMALS: Equal, round and reactive pupils present and EOMs intact bilaterally GENERAL EYE: appearance normal, both eyes and all related structures PUPIL: Yes Equal, round and reactive pupils present Neck/C-Spine: COMMON NORMALS: full ROM, no lymphadenopathy, no meningeal signs and no JVD GENERAL: Yes normal visual inspection Lymph: LYMPHATIC: no lymphadenopathy noted Chest: COMMONS NORMALS: normal inspection of the chest and normal palpation of entire chest wall Resp: COMMON NORMALS: normal respiratory effort, No retractions, No use of accessory muscles, clear to auscultation bilaterally and percussion normal EFFORT & INSPECTION: Yes able to speak in complete sentences AUSCULTATION: clear to auscultation bilaterally PERCUSSION: percussion normal Cardio: COMMON NORMALS: no JVD, regular rate, regular rhythm, S1 normal heart sound present, S2 normal heart sound present and Peripheral pulses 2+ throughout RATE: regular rate RHYTHM: regular rhythm HEART SOUNDS: S1 normal heart sound present and S2 normal heart sound present PERIPHERAL PULSES: Peripheral pulses 2+ throughout GI: COMMON NORMALS: Normal to inspection, nondistended, normoactive bowel sounds present, Soft to palpation, non-tender and no masses INSPECTION: Yes normal to inspection PALPATION: Yes Soft to palpation : COMMON NORMALS: Yes no CVA tenderness BLADDER/KIDNEY EXAM: Yes no CVA tenderness Back/Pelvis: COMMON NORMALS: no CVA tenderness, thoracic and lumbar spine normal to inspection, no thoracic nor lumbar tenderness and thoraco-lumbar ROM normal Extremity: COMMON NORMALS: normal to inspection, full ROM, capillary refill normal, no joint enlargement and no pedal edema GENERAL: Yes normal exam except as noted Neuro: COMMON NORMALS: patient oriented x3, CN's II-XII intact bilaterally, moves all extremities, no focal motor deficits, no sensory deficits noted and gait normal SENSORIUM/ORIENTATION: Yes alert, Yes oriented to person, Yes oriented to place and Yes oriented to time MENINGEAL SIGNS: Yes no meningeal signs Psych: COMMON NORMALS: mental status grossly normal, Normal thought process present, cooperative, normal affect and speech normal APPEARANCE: Yes well kempt ATTITUDE: Yes calm SPEECH: Yes normal speech THOUGHT PROCESS: Normal thought process present Skin: COMMON NORMALS: no rashes or lesions noted GENERAL SKIN EXAM: no rashes or lesions noted Course Vital Signs: Vital signs: Vital Signs Temperature 97.8 F 07/05/20 10:54 Pulse Rate 50 L 07/05/20 16:00 Respiratory Rate 18 07/05/20 16:00 Blood Pressure 143/62 07/05/20 16:00 Pulse Oximetry 95 07/05/20 16:00 MDM - General Adult MDM Narrative: Medical decision making narrative: The patient came in with severely elevated blood pressures which is concerning because she has had a carotid dissection, rupture, and stroke recently. She was given hydralazine and clonidine to lower her blood pressure and actually overshot a bit however it has now recovered. She was given IV fluids as well. Recommended she start taking amlodipine 10 mg a day starting tomorrow morning. This evening she may take 5 mg to get started. Discussed with Dr. Cabrales who agrees with plan of care. Follow-up with primary care in a couple days to monitor improvement of blood pressure. Return to the ER at anytime with worsening blood pressures. Lab Data: Labs: Lab Results 07/05/20 07/05/20 07/05/20 Range/Units 10:37 10:37 10:37 WBC 5.0 (4.0-10.0) 10^3/ uL RBC 4.69 (4.1-5.3) 10^6/u L Hgb 13.7 (11.5-15.3) g/dL Hct 43.2 (37.0-47.0) % MCV 92.1 (81-99) fL MCH 29.2 (28.0-34.0) pg MCHC 31.7 (30.0-36.0) g/dL RDW 13.4 (12.1-15.1) % Plt Count 224 (130-400) 10^3/c mm MPV 10.3 (7.4-10.4) fL Neut % (Auto) 56.6 % Lymph % (Auto) 27.4 % [place] % (Auto) 10.6 % Eos % (Auto) 4.2 % Baso % (Auto) 1.0 % Neut # (Auto) 2.83 (1.8-7.7) 10^3/u L Lymph # (Auto) 1.4 (0.8-4.8) 10^3/u L [place] # (Auto) 0.5 (0.2-0.9) 10^3/u L Eos # (Auto) 0.2 (0.0-0.8) 10^3/u L Baso # (Auto) 0.1 (0.0-0.1) 10^3/u L Nucleated RBC % (a uto) 0 % Nucleated RBCs # 0.0 /100WBC D-Dimer 0.61 H (0-0.59) ug/mIFE U Sodium 137 (136-145) mmol/L Potassium 4.1 (3.5-5.1) mmol/L Chloride 99 (98-107) mmol/L Carbon Dioxide 27 (22-29) mmol/L Anion Gap 15.1 (5-19) BUN 14 (8-23) mg/dL Creatinine 0.7 (0.5-0.9) mg/dL GFR Calculation Not Reportable Glucose 91 (65-115) mg/dL Calculated Osmolal ity 284 L (285-295) mOsm/k g Calcium 9.8 (8.5-10.5) mg/dL Total Bilirubin 0.4 (0.15-1.2) mg/dL AST 23 (0-32) U/L ALT 20 (0-33) U/L Alkaline Phosphata se 100 (35-105) IU/L Troponin T Baselin e (0-10) ng/L Troponin T 120 Min wrangell (0-10) ng/L Delta Troponin T (0-10) ABS# NT-Pro-B Natriuret Pep 115 (0-450) pg/mL Total Protein 7.5 (6.6-8.7) g/dL Albumin 4.5 (3.5-5.2) g/dL Globulin 3.0 (1.3-4.6) g/dL Lipase 18 (13-60) U/L Urine Color (Yellow) Urine Appearance (CLEAR) Urine pH (5-7) Ur Specific Gravit y (1.005-1.030) Urine Protein (Negative) Urine Glucose (UA) (Normal) Urine Ketones (Negative) Urine Blood (Negative) Urine Nitrate (Negative) Urine Bilirubin (Negative) Prot Sulfosalicyli c Acd (Negative) Urine Urobilinogen (Negative) mg/dL Ur Leukocyte Latrice ase (Negative) 07/05/20 07/05/20 07/05/20 Range/Units 10:37 11:12 12:27 WBC (4.0-10.0) 10^3/ uL RBC (4.1-5.3) 10^6/u L Hgb (11.5-15.3) g/dL Hct (37.0-47.0) % MCV (81-99) fL MCH (28.0-34.0) pg MCHC (30.0-36.0) g/dL RDW (12.1-15.1) % Plt Count (130-400) 10^3/c mm MPV (7.4-10.4) fL Neut % (Auto) % Lymph % (Auto) % [place] % (Auto) % Eos % (Auto) % Baso % (Auto) % Neut # (Auto) (1.8-7.7) 10^3/u L Lymph # (Auto) (0.8-4.8) 10^3/u L [place] # (Auto) (0.2-0.9) 10^3/u L Eos # (Auto) (0.0-0.8) 10^3/u L Baso # (Auto) (0.0-0.1) 10^3/u L Nucleated RBC % (a uto) % Nucleated RBCs # /100WBC D-Dimer (0-0.59) ug/mIFE U Sodium (136-145) mmol/L Potassium (3.5-5.1) mmol/L Chloride (98-107) mmol/L Carbon Dioxide (22-29) mmol/L Anion Gap (5-19) BUN (8-23) mg/dL Creatinine (0.5-0.9) mg/dL GFR Calculation Glucose (65-115) mg/dL Calculated Osmolal ity (285-295) mOsm/k g Calcium (8.5-10.5) mg/dL Total Bilirubin (0.15-1.2) mg/dL AST (0-32) U/L ALT (0-33) U/L Alkaline Phosphata se (35-105) IU/L Troponin T Baselin e 9 (0-10) ng/L Troponin T 120 Min wrangell 10.58 H (0-10) ng/L Delta Troponin T 1.58 (0-10) ABS# NT-Pro-B Natriuret Pep (0-450) pg/mL Total Protein (6.6-8.7) g/dL Albumin (3.5-5.2) g/dL Globulin (1.3-4.6) g/dL Lipase (13-60) U/L Urine Color Straw (Yellow) Urine Appearance Clear (CLEAR) Urine pH 8 H (5-7) Ur Specific Gravit y 1.015 (1.005-1.030) Urine Protein Neg (Negative) Urine Glucose (UA) Norm (Normal) Urine Ketones Negative (Negative) Urine Blood Neg (Negative) Urine Nitrate Negative (Negative) Urine Bilirubin Neg (Negative) Prot Sulfosalicyli c Acd Negative (Negative) Urine Urobilinogen Norm (Negative) mg/dL Ur Leukocyte Latrice ase Negative (Negative) Discharge Plan Discharge Patient Disposition: Home Clinical Impression: Hypertension, uncontrolled Condition: Stable Prescriptions: New amlodipine 10 mg tablet 10 mg PO DAILY Qty: 30 RF: 0 No Action citalopram 10 mg tablet 10 mg PO BEDTIME@2099 RF: 0 magnesium oxide 400 mg magnesium tablet 400 mg PO DAILY@1199 RF: 0 lysine [L-Lysine] 500 mg tablet 500 mg PO DAILY@1199 RF: 0 calcitonin (salmon) 200 unit/actuation spray,non-aerosol 1 spray intranasal (ALT) DAILY RF: 0 levothyroxine 88 mcg capsule 88 mcg PO DAILY@ RF: 0 aspirin [Adult Aspirin Regimen] 81 mg tablet,delayed release (DR/EC) 81 mg PO DAILY@2099 RF: 0 calcium 600 mg Capsule 1,200 mg PO DAILY@ RF: 0 oxybutynin chloride 5 mg tablet extended release 24hr 5 mg PO EVERY OTHER DAY RF: 0 sumatriptan 20 mg/actuation spray,non-aerosol See Rx Instructions .ROUTE .COMPLEX RF: 0 Vision Plus Lutein Tablet 1 tab PO DAILY@1199 RF: 0 cholecalciferol (vitamin D3) [Vitamin D3] 50 mcg (2,000 unit) Tablet 50 mcg PO DAILY@1199 RF: 0 Azo Cranberry 250 mg Tablet,Chewable 250 mg PO EVERY OTHER DAY RF: 0 vitamin E 400 unit Capsule 400 unit PO DAILY@1199 RF: 0 acetaminophen 325 mg Tablet 650 mg PO Q4H PRN (Reason: Mild Pain Or Increase Temp) Qty: 100 RF: 5 alprazolam 0.25 mg Tablet 0.25 mg PO DAILY@2099 RF: 0 lisinopril 40 mg Tablet 40 mg PO DAILY@2099 RF: 0 atorvastatin 40 mg tablet 80 mg PO BEDTIME@2099 RF: 0 isosorbide mononitrate 30 mg tablet extended release 24 hr 30 mg PO DAILY@ RF: 0 clopidogrel 75 mg tablet 75 mg PO DAILY@2099 RF: 0 metoprolol succinate 25 mg tablet extended release 24 hr 25 mg PO DAILY@08 RF: 0 Discharge Orders: Discharge ED (Routine); Ordered 07/05/20 Ordered By: Jeffrey Crum Referrals: Jakob Cole DO [Primary Care Provider] - Discharge Diet: Advance as tolerated Discharge Activity: Resume usual activity Patient Instructions: Hypertension (ED), Opioid Safety Activity Restrictions/Additional Instructions: You have come in with severely elevated blood pressure. We have reduced it and your symptoms have also resolved. Please start taking the amlodipine you may take half a tab this evening and start taking the full tab tomorrow morning with the rest of your medications. Return to the ER at anytime with blood pressure over 180 or if you have symptoms of headache, shortness of breath, chest pain, weakness, difficulty speaking or any other worrisome symptoms. Follow-up with Dr. Cole in a couple days and bring a diary of your blood pressures with you so he can use that to adjust your medications further. Coding Level of Care Code ED Health Safety And Environment Manager for [facility] Exam Comprehensive
[2020-07-05 11:23] LABS: Add Urine Microscopic? NO; Charge for UA Resulting for Rev
[2020-07-05 11:37] LABS: D Dimer 0.61 ug/mIFEU (0-0.59)
[2020-07-05 11:45] LABS: Bilirubin Urine Neg (Negative); Blood Urine Neg (Negative); Glucose Urine UA Norm (Normal); Ketones Urine Negative (Negative); Leukocyte Esterase Urine Negative (Negative); Nitrate Urine Negative (Negative); Protein Urine Neg (Negative); Specific Gravity, Urine 1.015 (1.005-1.030); Sulfosalicylic Acid Urine Negative (Negative); Urine Appearance Clear (CLEAR); Urine Color Straw (Yellow); Urobilinogen Urine Norm (Negative); pH Urine 8 (5-7)
[2020-07-05 11:46] LABS: Troponin(5th) Baseline 9 ng/L (0-10)
[2020-07-05 11:56] LABS: Alanine Aminotransferase 20 U/L (0-33); Albumin Level 4.5 g/dL (3.5-5.2); Alkaline Phosphatase 100 IU/L (35-105); Anion Gap 15.1 (5-19); Aspartate Amino Transferase 23 U/L (0-32); Blood Urea Nitrogen 14 mg/dL (8-23); Calcium 9.8 mg/dL (8.5-10.5); Carbon Dioxide 27 mmol/L (22-29); Chloride 99 mmol/L (98-107); Glucose 91 mg/dL (65-115); Lipase 18 U/L (13-60); NT Pro B Type Natriuretic Pept 115 pg/mL (0-450); Osmolality Calculated 284 mOsm/kg (285-295); Potassium 4.1 mmol/L (3.5-5.1); Sodium 137 mmol/L (136-145); Total Bilirubin 0.4 mg/dL (0.15-1.2); Total Protein 7.5 g/dL (6.6-8.7)
[2020-07-05] MEDS: cloNIDine 0.1 mg Tablet 0.2 MG PO (12:45)
--- NOTE | 2020-07-05 12:56 | ECG_ITS ---
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 Measurements Intervals [place] Rate: 57 P: 13 MN: 168 QRS: -26 QRSD: 93 T: 67 QT: 439 QTc: 431 Interpretive Statements SINUS BRADYCARDIA POSSIBLE ANTERIOR MYOCARDIAL INFARCTION , OF INDETERMINATE AGE [30 ms Q WAVE IN V3/V4, OR R < 0.2 mV IN V4] INFERIOR MYOCARDIAL INFARCTION , PROBABLY OLD [40+ ms Q WAVE AND/OR ST/T ABNORMALITY IN II/aVF] Compared to ECG 07/05/2020 11:15:22 Sinus rhythm no longer present Myocardial infarct finding still present Electronically Signed On 07-05-2020 21:15:01 CDT by Kelly Duong M.D. [id number]
[2020-07-05 13:08] LABS: Troponin 5 2HR 10.58 ng/L (0-10); Troponin 5 2HR Delta 1.58 ABS# (0-10)
--- NOTE | 2020-07-05 13:20 | PC.NURSE ---
EKG done at 1315 and shown to .
--- NOTE | 2020-07-05 14:07 | PC.NURSE ---
patient denied any dizziness or pain at this time.
[2020-07-05] MEDS: sodium chloride 0.9% 1,000 ML 999 ML IV (15:20)
[2020-07-05 17:18] LABS: Troponin 5 6HR 20.51 ng/L (0-10); Troponin 5 6HR Delta 11.51 ng/L (0-12)
== END 2020-07-05 16:50 | disposition home or self-care (01) ==
PROVIDERS: Emergency Provider Family Medicine; PCP Internal Medicine
DX: I10 Essential (primary) hypertension (principal); Z79.82 Long term (current) use of aspirin; Z79.02 Long term (current) use of antithrombotics/antiplatelets; Z86.73 Personal history of transient ischemic attack (TIA), and cerebral infarction without residual deficits
CPT/HCPCS: 36415; 71045; 80053; 81003; 83690; 83880; 84484; 85025; 85378; 93005; 96360; 99284; J7030

== ENCOUNTER 2020-07-28 06:00 | Outpatient (RCR) | payer MEDICARE, SELFPAY | END 2020-08-27 23:59 | disposition home or self-care (01) | LOC: SR3 06:00 | PROVIDERS: PCP Internal Medicine; Referring Provider Internal Medicine; Visit Provider Internal Medicine | DX: I77.71 Dissection of carotid artery (principal) | CPT/HCPCS: 92507; 97110; 97112; 97164 ==

== ENCOUNTER 2020-08-28 06:00 | Outpatient (RCR) | payer MEDICARE, SELFPAY | END 2020-09-26 23:59 | disposition home or self-care (01) | LOC: SR3 06:00 | PROVIDERS: PCP Internal Medicine; Referring Provider Internal Medicine; Visit Provider Internal Medicine | DX: I77.71 Dissection of carotid artery (principal) | CPT/HCPCS: 92507; 97110; 97112; 97164 ==

== ENCOUNTER 2021-01-11 07:43 | Outpatient (CLI) | payer MEDICARE, SELFPAY ==
--- NOTE | 2021-01-11 08:00 | USCV_ITS ---
Alexander Dalila Age: 80 Gender: F : 1940 Exam Date: 01/11/2021 07:56 Ordering Phys: Alejo Cabrales MD (Andy) ([email or web address] [place]) Technologist: SHOSHANA [place] [facility] [place]: OCCLUSION AND STENOSIS OF BILATERAL CAROTID ARTERIES Risk Factors: Previous Vascular Surgery: Right Brachial BP: / Left Brachial BP: / Right Left Velocity (cm/s) Spectral Plaque Velocity (cm/s) Spectral Plaque Syst/Diast Broadening Syst/Diast Broadening 87.10/ 16.50 Prox CCA 23.90 / 2.90 81.60/ 25.40 Mid CCA 15.30 / 5.30 78.30/ 24.30 Distal CCA 27.30 / 5.00 74.90/ 25.60 Prox ICA / 72.00/ 25.60 Mid ICA / 84.60/ 27.00 Distal ICA / 72.50 ECA 485.65 1.04 ICA/CCA Antegrade Vertebral Antegrade 45.10/ 16.00 cm/s 77.80/ 29.10 cm/s Bi Subclavian Bi 179.8 0 FINDINGS Intimal thickening in the common carotid arteries bilaterally. Minimal plaques at the bifurcations bilaterally No Doppler flow signals in the left internal carotid artery. High resistance flow pattern in the left common carotid artery. Markedly elevated velocity and flow turbulence in the left external carotid artery. Antegrade flow in the vertebral arteries bilaterally. Normal Doppler flow signals in the right subclavian artery. CONCLUSIONS 1. 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 2. Minimal plaques of the right bifurcation suggesting less than 50% stenosis is to be consistent with thyroid likely 50% but. 3. Elevated velocity in the external carotid artery on the left side, suggestive of hemodynamically significant stenosis. 4. Left subclavian artery was not visualized Compared to the previous study from 06/11/2020, there may not be a significant change Dr Ana Brock MD [facility] (Electronically Signed) Final Date: 11 January 2021 15:16 S
== END 2021-01-11 07:44 | disposition home or self-care (01) ==
LOC: RAD 07:45
PROVIDERS: PCP Internal Medicine; Visit Provider Thoracic Surgery (Cardiothoracic Vascular Surgery)
DX: I65.23 Occlusion and stenosis of bilateral carotid arteries (principal)
CPT/HCPCS: 93880

== ENCOUNTER 2021-02-20 14:49 | Outpatient (CLI) | payer MEDICARE, SELFPAY ==
--- NOTE | 2021-02-20 15:01 | MM_ITS ---
WS: [id number] BILATERAL SCREENING MAMMOGRAM WITH GAEL DISPLACEMENT VIEWS. CAD PERFORMED. HISTORY: SCREENING COMPARISON: 06/06/2019 04/27/2018 Bilateral craniocaudal and mediolateral like views are performed. Gael displacement views in CC and MLO projection also performed. Breasts composition: There are scattered areas of fibroglandular density. Implants are intact. Partial capsular contraction around the RIGHT implant. Benign calcification in t he LEFT breast. No suspicious mass or calcification. MM/[place] [id number] IMPRESSION: BI-RADS: 2-Benign FOLLOW-UP: 1 Year Follow-up
== END 2021-02-20 14:50 | disposition home or self-care (01) ==
LOC: RADSHAW 14:53
PROVIDERS: PCP Internal Medicine; Visit Provider Internal Medicine
DX: Z12.31 Encounter for screening mammogram for malignant neoplasm of breast (principal)
CPT/HCPCS: 77067

== ENCOUNTER → 2021-04-15 08:42 | Outpatient (BNVA) | payer MEDICARE, SELFPAY | PROVIDERS: PCP Internal Medicine; Visit Provider Nurse Practitioner Family | DX: N39.0 Urinary tract infection, site not specified (principal); N39.46 Mixed incontinence | CPT/HCPCS: 81003 ==

== ENCOUNTER → 2021-05-14 15:35 | Outpatient (BNVA) | payer MEDICARE, SELFPAY | PROVIDERS: PCP Internal Medicine; Visit Provider Urology | DX: N39.0 Urinary tract infection, site not specified (principal) | CPT/HCPCS: 81003 ==

== ENCOUNTER → 2021-06-04 13:48 | Outpatient (BNVA) | payer MEDICARE, SELFPAY | PROVIDERS: PCP Internal Medicine; Visit Provider Internal Medicine Cardiovascular Disease | DX: I25.10 Atherosclerotic heart disease of native coronary artery without angina pectoris (principal); I11.9 Hypertensive heart disease without heart failure; I51.9 Heart disease, unspecified | CPT/HCPCS: 99214 ==

== ENCOUNTER → 2021-08-12 14:22 | Outpatient (BNVA) | payer MEDICARE, SELFPAY | PROVIDERS: PCP Internal Medicine; Visit Provider Urology | DX: N39.46 Mixed incontinence (principal); N39.0 Urinary tract infection, site not specified | CPT/HCPCS: 81003; 99213 ==

== ENCOUNTER → 2022-01-08 13:52 | Outpatient (BNVA) | payer MEDICARE, SELFPAY | PROVIDERS: PCP Internal Medicine; Visit Provider Internal Medicine Cardiovascular Disease | DX: I11.9 Hypertensive heart disease without heart failure (principal); I34.0 Nonrheumatic mitral (valve) insufficiency; I25.10 Atherosclerotic heart disease of native coronary artery without angina pectoris; Z98.890 Other specified postprocedural states; Z86.73 Personal history of transient ischemic attack (TIA), and cerebral infarction without residual deficits | CPT/HCPCS: 99214 ==

== ENCOUNTER 2022-01-13 08:10 | Outpatient (CLI) | payer MEDICARE, SELFPAY ==
--- NOTE | 2022-01-13 08:30 | USCV_ITS ---
Alexander Dalila Age: 81 Gender: F : 1940 Exam Date: 01/13/2022 08:19 Ordering Phys: Alejo Cabrales MD (Andy) ([email or web address] [place] Technologist: ROSITA Exam Location: [facility] Indication: Occlusion and Stenosis Risk Factors: Previous Vascular Surgery: Right Brachial BP: / Left Brachial BP: / Right Left Velocity (cm/s) Spectral Plaque Velocity (cm/s) Spectral Plaque Syst/Diast Broadening Syst/Diast Broadening 78.30/ 14.30 Prox CCA 28.60 / 0.40 98.10/ 24.30 Mid CCA 22.00 / 3.90 67.30/ 18.70 Distal CCA 47.90 / 9.80 76.10/ 28.70 Prox ICA / Hetro 89.30/ 29.80 Mid ICA / Hetro 87.10/ 27.60 Distal ICA / Hetro 98.10 ECA 502.80 0.91 ICA/CCA Antegrade Vertebral Antegrade 53.90/ 11.20 cm/s 101.0/ 21.80 cm/s 0 Tri Subclavian Bi 82.30 32.20 FINDINGS Complete LT ICA Occlusion as seen as previous exam 06/11/20 CONCLUSIONS Chronic Left ICA occlusion unchanged Right ICA stenosis <50%. Moderate atheromatous plaque right carotid bulb/ICA. Normal antegrade Doppler flow noted in the right vertebral artery. Normal antegrade Doppler flow noted in the left vertebral artery. Jose Trinidad MD (Electronically Signed) Final Date: 13 January 2022 17:10 S
== END 2022-01-13 08:11 | disposition home or self-care (01) ==
PROVIDERS: PCP Internal Medicine; Visit Provider Thoracic Surgery (Cardiothoracic Vascular Surgery)
DX: I65.23 Occlusion and stenosis of bilateral carotid arteries (principal)
CPT/HCPCS: 93880

== ENCOUNTER → 2022-01-30 08:55 | Outpatient (BNVA) | payer MEDICARE, SELFPAY | PROVIDERS: PCP Internal Medicine; Visit Provider Thoracic Surgery (Cardiothoracic Vascular Surgery) | DX: I65.21 Occlusion and stenosis of right carotid artery (principal); Z98.890 Other specified postprocedural states | CPT/HCPCS: 99212 ==

== ENCOUNTER 2022-02-19 14:24 | Outpatient (CLI) | payer MEDICARE, SELFPAY ==
--- NOTE | 2022-02-19 14:30 | MM_ITS ---
WS: [id number] BILATERAL 3D TOMOSYNTHESIS DIGITAL DIAGNOSTIC MAMMOGRAPHY WITH CAD CLINICAL INFORMATION: RIGHT BREAST MASS COMPARISON: 2020 TECHNIQUE: Bilateral CC, MLO, and ML views. FINDINGS: Scattered fibroglandular densities bilaterally. Bilateral breast implants. Rupture of the RIGHT breas t saline implant is new since February 20, 2021. Capsular and dystrophic calcifications RIGHT breast. Superior quadrant marker near the chest wall corresponds to the capsular implant calcifications pricilla cent to the chest wall. Ultrasound is pending. LEFT breast appears unchanged. ULTRASOUND BREAST RIGHT TECHNIQUE: Ultrasound right breast focused area of concern. CLINICAL INFORMATION: RIGHT BREAST MASS FINDINGS: Ultrasound RIGHT breast in the areas of palpable concern. Ruptured underlying breast implant is visua lized. Associated capsular calcifications. In the area of palpable concern, at the 4:00 position, nor mal underlying breast tissue with ruptured implant. At the 8:00 position there is also underlying rup tured breast implant visualized. No suspicious parenchymal abnormalities. MM/[id number] IMPRESSION: BI-RADS: 2-Benign FOLLOW UP: 1 Year Follow-up Recommend return to annual screening mammography. Recommend breast surgery consultation for ruptured RIGHT breast saline implant
== END 2022-02-19 14:25 | disposition home or self-care (01) ==
LOC: RAD 14:26
PROVIDERS: PCP Internal Medicine; Visit Provider Emergency Medicine
DX: N63.10 Unspecified lump in the right breast, unspecified quadrant (principal); R92.8 Other abnormal and inconclusive findings on diagnostic imaging of breast
CPT/HCPCS: 76642; 77062; G0279

== ENCOUNTER 2022-04-17 14:48 | Outpatient (CLI) | payer MEDICARE, SELFPAY ==
--- NOTE | 2022-04-17 14:59 | XR_ITS ---
WS: [id number] DEXA (DUAL ENERGY X-RAY ABSORPTIOMETRY) Bone mineral density was performed using a Reciph[employer] machine. HISTORY: POSTMENOPAUSAL COMPARISON: 02/13/2020 Lumbar spine BMD (L1-L4): 1.107 g/cm2 T score: -0.6 Z score: 1.0 Total hip BMD: Left: 0.655 g/cm2. T score: -2.8 Z score: -0.9 Right: 0.687 g/cm2. T score: -2.5 Z score: -0.6 10 year probability of a major osteoporotic fracture is 39%. Compared to the prior study from 02/13/2020. Lumbar spine bone mineral density has decreased by 0.2%. Bilateral hips bone mineral density has decreased by 1.5%. XR/XR DEXA axial skeleton* [id number] IMPRESSION: OSTEOPOROSIS based upon the WHO classification for females. No significant change in bone mineral density since the most recent exam.
== END 2022-04-17 14:49 | disposition home or self-care (01) ==
LOC: RAD 14:50
PROVIDERS: PCP Internal Medicine; Visit Provider Internal Medicine
DX: Z78.0 Asymptomatic menopausal state (principal); M81.0 Age-related osteoporosis without current pathological fracture
CPT/HCPCS: 77080

== ENCOUNTER → 2022-07-15 15:23 | Outpatient (BNVA) | payer MEDICARE, SELFPAY | PROVIDERS: PCP Internal Medicine; Visit Provider Internal Medicine Cardiovascular Disease | DX: I25.10 Atherosclerotic heart disease of native coronary artery without angina pectoris (principal); Z98.890 Other specified postprocedural states; I34.0 Nonrheumatic mitral (valve) insufficiency; Z86.73 Personal history of transient ischemic attack (TIA), and cerebral infarction without residual deficits; I11.9 Hypertensive heart disease without heart failure; Z79.82 Long term (current) use of aspirin | CPT/HCPCS: 99214 ==

== ENCOUNTER → 2022-08-08 10:50 | Outpatient (BNVA) | payer MEDICARE, SELFPAY | PROVIDERS: PCP Internal Medicine; Visit Provider Nurse Practitioner Family | DX: L21.8 Other seborrheic dermatitis (principal); L85.3 Xerosis cutis | CPT/HCPCS: 99204 ==

== ENCOUNTER 2023-01-20 12:15 | Outpatient (CLI) | payer MEDICARE, SELFPAY ==
--- NOTE | 2023-01-20 13:00 | USCV_ITS ---
Dalila Munoz Age: 82 Gender: F : 1940 Exam Date: 01/20/2023 12:42 Ordering Phys: Alejo Cabrales MD (Andy) [email or web address] [place] Technologist: [place] [facility] [place] Indication: lt ica endart lt ica occlusion Risk Factors: Previous Vascular Surgery: Right Brachial BP: / Left Brachial BP: / Right Left Velocity (cm/s) Spectral Plaque Velocity (cm/s) Spectral Plaque Syst/Diast Broadening Syst/Diast Broadening 83.25/ 21.50 Prox CCA 19.60 / 2.50 69.50/ 17.60 Mid CCA 21.50 / 3.40 76.10/ 22.10 Distal CCA 47.50 / 5.60 42.60/ 15.60 Prox ICA / 70.10/ 20.90 Mid ICA / 75.00/ 18.50 Distal ICA / 68.70 ECA 259.35 0.95 ICA/CCA Antegrade Vertebral Antegrade 39.40/ 8.00 cm/s 64.30/ 12.30 cm/s Tri Subclavian Tri 79.30 66.20 FINDINGS Comparison:. 01/13/22 Known occluded left ICA. No significant elevation of systolic or diastolic velocities right ICA. Antegrade vertebral arteries. CONCLUSIONS Right ICA stenosis < 50%. Complete occlusion left ICA. Dr. Shell Snell DO (Electronically Signed) Final Date: 20 January 2023 15:07 S
== END 2023-01-20 12:16 | disposition home or self-care (01) ==
LOC: RAD 12:15
PROVIDERS: PCP Internal Medicine; Visit Provider Thoracic Surgery (Cardiothoracic Vascular Surgery)
DX: I65.23 Occlusion and stenosis of bilateral carotid arteries (principal)
CPT/HCPCS: 93880

== ENCOUNTER → 2023-01-21 14:20 | Outpatient (BNVA) | payer MEDICARE, SELFPAY | PROVIDERS: PCP Internal Medicine; Visit Provider Nurse Practitioner Family | DX: I25.10 Atherosclerotic heart disease of native coronary artery without angina pectoris (principal); I10 Essential (primary) hypertension | CPT/HCPCS: 99214 ==

== ENCOUNTER → 2023-01-29 10:11 | Outpatient (BNVA) | payer MEDICARE, SELFPAY | PROVIDERS: PCP Internal Medicine; Visit Provider Thoracic Surgery (Cardiothoracic Vascular Surgery) | DX: Z98.890 Other specified postprocedural states (principal) | CPT/HCPCS: 99213 ==

== ENCOUNTER → 2023-02-09 14:34 | Outpatient (BNVA) | payer MEDICARE, SELFPAY | PROVIDERS: PCP Internal Medicine; Visit Provider Nurse Practitioner Family | DX: L21.8 Other seborrheic dermatitis (principal); L85.3 Xerosis cutis; L57.0 Actinic keratosis; L82.1 Other seborrheic keratosis; D22.5 Melanocytic nevi of trunk | CPT/HCPCS: 17000; 99214 ==

== ENCOUNTER 2023-02-27 10:24 | Outpatient (CLI) | payer MEDICARE, SELFPAY ==
--- NOTE | 2023-02-27 10:26 | MM_ITS ---
WS: [id number] Bilateral screening 3D tomosynthesis digital mammogram, 02/27/2023 Clinical Data: SCREENING Comparison: 02/19/2022, 02/20/2021, 06/06/2019, 04/27/2018, 01/26/2017, 11/26/2015, 11/24/2014, 11/08/2013, 10/26/2012, 08/04/2011, 07/09/2010, 06/21/2009, 06/21/2028, 04/01/2007, 01/13/2016. Findings: The breast parenchymal pattern shows fibroglandular tissue. There are bilateral augmentation mammopla sty implants. The right breast implant ruptured and has not changed in appearance in the last 2 years . The left implant appears intact. No spiculated masses or clustered calcifications are seen. There a re no secondary signs of carcinoma. Impression: 1. Negative bilateral mammogram unchanged with rupture of the right implant and the left implant rem aining intact. 2. Recommend annual screening mammograms. MM/[place] [id number] BIRADS: 1-Negative FOLLOW UP: 1 Year Follow-up The CAD linen checker was used.
== END 2023-02-27 10:25 | disposition home or self-care (01) ==
LOC: RAD 10:24
PROVIDERS: PCP Internal Medicine; Visit Provider Internal Medicine
DX: Z12.31 Encounter for screening mammogram for malignant neoplasm of breast (principal)
CPT/HCPCS: 77063; 77067

== ENCOUNTER 2023-05-01 10:12 | Outpatient (CLI) | payer MEDICARE, SELFPAY ==
--- NOTE | 2023-05-01 10:17 | CTR_ITS ---
PROCEDURE INFORMATION: Exam: CT Abdomen And Pelvis Without And With Contrast Exam date and time: 05/01/2023 10:48 AM Age: 82 years old Clinical indication: Prior surgery; Surgery date: 6+ months; Surgery type: Partial hysterectomy; Patient HX: Recurrent uti's for the past 2 years, incontinence TECHNIQUE: Imaging protocol: Computed tomography of the abdomen and pelvis without and with contrast. Radiation optimization: All CT scans at this facility use at least one of these dose optimization techniques: automated exposure control; mA and/or kV adjustment per patient size (includes targeted exams where dose is matched to clinical indication); or iterative reconstruction. Contrast material: OMNI 350; Contrast volume: 95 ml; Contrast route: INTRAVENOUS (IV); COMPARISON: CR XR chest 1V portable [id number] 07/05/2020 11:23 AM RADIATION DOSE METRICS: Total DLP (mGy-cm): 971.17 FINDINGS: Lung bases: There is a pericardial cyst along the right heart border measuring up to 6 cm. Liver: No focal hepatic lesion. 5 mm right hepatic lobe cyst. Gallbladder and bile ducts: There is biliary sludge and/or cholelithiasis. No inflammatory changes to suggest acute cholecystitis. No intrahepatic or extrahepatic biliary dilatation. Pancreas: Grossly unremarkable. Spleen: Multiple splenic calcifications compatible with sequela of a remote granulomatous process. Otherwise grossly unremarkable. Adrenal glands: Grossly unremarkable. Kidneys and ureters: No evidence of renal parenchymal abnormality. No hydronephrosis or ureteral stone. Stomach and bowel: No bowel obstruction or perienteric inflammatory changes. Mild wall thickening at the anorectal junction. Appendix: The appendix is not visualized, however there are no findings to suggest appendicitis. Intraperitoneal space: No evidence of free air or fluid collection. Vasculature: Moderate aortobiiliac atherosclerosis without aneurysmal dilatation or dissection. The celiac trunk, SMA and EBONIE are grossly patent. No evidence of IVC thrombus. The portal vein, SMV and splenic veins are grossly patent. Lymph nodes: No adenopathy. Urinary bladder: Mild diffuse bladder wall thickening/haziness. Otherwise grossly unremarkable. Reproductive: Status post hysterectomy. There is a left-sided adnexal cyst measuring up to 6.5 cm. There is mild soft tissue thickening in the region of the lower vaginal cuff. Correlation with supervisor fireworks assembly exam is recommended. Bones/joints: No evidence of acute fracture or aggressive osseous lesion. Soft tissues: No evidence of fluid collection or hematoma in the superficial soft tissues. CT/CT abdomen pelvis wo/w [id number] IMPRESSION: 1. Suspected cystitis. Correlation with urinalysis and laboratory findings is recommended. 2. Left-sided adnexal cyst measuring up to 6.5 cm. Follow-up supervisor fireworks assembly evaluation and pelvic sonography is recommended. 3. Mild soft tissue thickening in the region of the lower vaginal cuff. Correlation with supervisor fireworks assembly exam is recommended. 4. Mild wall thickening at the anorectal junction. Consider follow-up outpatient proper colonoscopy.
[2023-05-01 10:45] LABS: Blood Urea Nitrogen 22 mg/dL (8-23)
[2023-05-01 10:46] LABS: Creatinine Clr Calc Pharmacy 71
[2023-05-01] MEDS: iohexol 350 mg/mL 500 mL Btl (per mL) IV (10:59)
== END 2023-05-01 10:13 | disposition home or self-care (01) ==
LOC: RAD 10:13
PROVIDERS: PCP Internal Medicine; Visit Provider Urology
DX: N39.0 Urinary tract infection, site not specified (principal); Z87.440 Personal history of urinary (tract) infections; N83.202 Unspecified ovarian cyst, left side; R93.89 Abnormal findings on diagnostic imaging of other specified body structures
CPT/HCPCS: 74178; 82565; 84520; Q9967

== ENCOUNTER → 2023-12-15 16:05 | Outpatient (BNVA) | payer MEDICARE, SELFPAY | PROVIDERS: PCP Internal Medicine; Visit Provider Internal Medicine Cardiovascular Disease | DX: I49.3 Ventricular premature depolarization (principal); R00.1 Bradycardia, unspecified; I21.09 ST elevation (STEMI) myocardial infarction involving other coronary artery of anterior wall; R06.02 Shortness of breath; R07.9 Chest pain, unspecified | CPT/HCPCS: 36415; 80048; 83880; 93005; 99215 ==

== ENCOUNTER 2023-12-23 16:24 | Outpatient (CLI) | payer MEDICARE, SELFPAY ==
--- NOTE | 2023-12-23 16:30 | USCV_ITS ---
Dalila Munoz Age: 83 Gender: F : 1940 Exam Date: 12/23/2023 16:40 Ordering Phys: Ana Brock MD ([email or web address]) Technologist: CT Exam Location: [facility] [place] Indication: afib BP: 140 / 78 HR: 59 Rhythm: Sinus Technical Quality: Technically difficult study MEASUREMENTS (Male / Female) Normal Values 2D ECHO LVOT Diameter 2.1 cm LV Ejection Fraction MOD 4C 63.4 % LV Ejection Fraction MOD 2C 56.1 % LV Ejection Fraction 2C AL 57.1 % LA Diameter 3.5 cm RA Systolic Volume 4C AL 39.3 ml RA Systolic Volume 4C MOD 39.5 ml LA Sys Volume AL 42.0 cm cubed LA Sys Volume Index AL 22.5 cm cubed/m squared IVC Diameter 1.7 cm DOPPLER AV Peak Velocity 150.0 cm/s LVOT Peak Velocity 120.0 cm/s AV Area Cont Eq vti 2.7 cm squared AV Area Cont Eq pk 2.7 cm squared MV Peak Velocity 124.0 cm/s MV Area PHT 4.0 cm squared Mitral E to A Ratio 1.0 TR Peak Velocity 298.0 cm/s TR Peak Gradient 35.5 mmHg TV Peak E Velocity 72.0 cm/s Right Atrial Pressure 3.0 mmHg Pulmonary Artery Systolic Pressu 38.5 mmHg FINDINGS Left Ventricle Normal left ventricular size and systolic function, EF 63%. No gross wall motion abnormalities Right Ventricle The right ventricle is normal in size and function. Right Atrium The right atrium is normal in size. Left Atrium The left atrium is normal in size. Mitral Valve Moderate mitral valve regurgitation. Aortic Valve No gross abnormalities noted Tricuspid Valve No gross abnormalities noted Pulmonic Valve Pulmonic valve not well visualized. Pericardium Normal pericardium without effusion. Aorta Normal ascending aorta dimension. IVC Normal inferior vena cava. CONCLUSIONS Normal left ventricular size and systolic function, EF 63%. No gross wall motion abnormalities. Moderate mitral valve regurgitation. Normal cardiac ctype II diastolic dysfunction. hamber sizes There is no pericardial effusion. There are no intracardiac masses. Compared to the study from 02/14/2020, there may be a significant change Dr Ana Brock MD [facility] (Electronically Signed) Final Date: 01 January 2024 11:12 S
== END 2023-12-23 16:25 | disposition home or self-care (01) ==
LOC: RAD 16:25
PROVIDERS: PCP Internal Medicine; Visit Provider Internal Medicine
DX: I34.0 Nonrheumatic mitral (valve) insufficiency (principal); R06.09 Other forms of dyspnea
CPT/HCPCS: 93306

== ENCOUNTER → 2024-02-10 14:42 | Outpatient (BNVA) | payer MEDICARE, SELFPAY | PROVIDERS: PCP Internal Medicine; Visit Provider Nurse Practitioner Family | DX: D69.2 Other nonthrombocytopenic purpura (principal); L82.1 Other seborrheic keratosis; L57.8 Other skin changes due to chronic exposure to nonionizing radiation; D48.5 Neoplasm of uncertain behavior of skin | CPT/HCPCS: 11102; 99213 ==

== ENCOUNTER 2024-02-22 10:23 | Outpatient (CLI) | payer MEDICARE, SELFPAY ==
--- NOTE | 2024-02-22 | ECG_ITS ---
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 Interpretive Statements Lung unchanged pre/post procedure; Intraprocedure shortess of breath; Symptoms resoled by discharge PROCEDURE: At the baseline, the EKG revealed sinus rhythm with frequent PVCs. Poor R wave progression. Possible old anteroseptal [place]. Some nonspecific ST changes.. The baseline heart was 70 bpm with a blood pressue of 183/108 mm of Hg Lexiscan was infused over a period of 20 seconds. A total of 0.4 milligrams of Lexiscan was infused. The stress phase was continued for a total of 5 minutes. Heart rate at the end of the stress phase was 83 bpm with a blood pressure 158/81 mm of Hg. The EKG at the peak infusion revealed no significant changes. Sestamibi was injected 20 seconds after the Lexiscan infusion. Heart rate at the end of the recovery phase was 80 bpm with a blood pressure of 152/81 mm of Hg. CONCLUSION: 1. No significant EKG changes with the LexiScan infusion 2. No LexiScan induced chest pain or cardiac arrhythmia 3. Normal blood pressure and heart rate response 4. Sestamibi/sestamibi perfusion scan pending; see separate report. Electronically Signed On 02-24-2024 19:55:05 HEADER SETUP OPERATOR by Ana Brock M.D. [id number]
[2024-02-22 11:17] VITALS: BMI 27.4
--- NOTE | 2024-02-22 11:21 | NMCV_ITS ---
NM andrew perf SPECT r/s* [id number] Dalila Munoz Age: 83 Gender: F : 1940 Exam Date: 02/22/2024 11:21 Ordering Phys: Ana Brock MD ([email or web address]) Technologist: KUNAL Palacios Exam Location: [facility] Indications: CP STRESS TEST [facility] IMAGE PROTOCOL Rest/Stress 1 Lexiscan Day Radiopharmaceutical Dose (mCi) Administration Site Administered by Rest: Tc-99m 10.5 IV Leola Latoya, PIANO REGULATOR Sestamibi Stress:Tc-99m 32.5 IV Leola Latoya, PIANO REGULATOR Sestamibi Rest: 22-Feb-2024 60 Discovery 630 Stress: 22-Feb-2024 30 Discovery 630 0.4mg Lexiscan. Images obtained in supine and prone position. SPECT RESULTS Technical Quality: Good Raw Data Analysis: Adequate Image Corrections: No attenuation or motion correction applied Summed Stress Score: 2 Summed Rest Score: 0 Summed Difference Score: 2 PERFUSION FINDINGS Small area of moderately decreased tracer uptake in the apical lateral segment. Reversibility was noted in this region. FUNCTIONAL RESULTS (calculated via Gated SPECT) Stress Image LV EF (%): 74 Stress EDV (mL):66 TID: 0.91 Stress ESV (mL):17 FUNCTIONAL FINDINGS: Segmental wall motion analysis revealing no gross wall motion abnormalities IMPRESSIONS 1. Myocardial perfusion imaging revealing a small area of reversible defect in the apical lateral region suggestive of ischemia in the distribution of the left circumflex artery. 2. Normal LV ejection fraction 74%. 3. LV wall motion analysis revealing no gross wall motion abnormalities. 4. Normal LV volume Compared to the study from 02/17/2020, the area of ischemia appears to be new Dr Ana Brock MD [facility] (Electronically Signed) Final Date: 22 February 2024 20:52 S
[2024-02-22] MEDS: regadenoson 0.4 Mg/5 ml Syringe IVP (12:35)
[2024-02-22 12:56] VITALS: BP 152/81; PULSE 82
== END 2024-02-22 10:24 | disposition home or self-care (01) ==
LOC: CDL 10:24
PROVIDERS: PCP Internal Medicine; Visit Provider Internal Medicine Cardiovascular Disease
DX: I24.0 Acute coronary thrombosis not resulting in myocardial infarction (principal); I25.9 Chronic ischemic heart disease, unspecified; R94.39 Abnormal result of other cardiovascular function study; R06.02 Shortness of breath
CPT/HCPCS: 36415; 78452; 93017; 96374; A9500; J2785

== ENCOUNTER → 2024-03-18 10:46 | Outpatient (BNVA) | payer MEDICARE, SELFPAY | PROVIDERS: PCP Internal Medicine; Visit Provider Nurse Practitioner Family | DX: I10 Essential (primary) hypertension (principal); I25.10 Atherosclerotic heart disease of native coronary artery without angina pectoris; I25.9 Chronic ischemic heart disease, unspecified; E78.5 Hyperlipidemia, unspecified; I34.0 Nonrheumatic mitral (valve) insufficiency; I48.91 Unspecified atrial fibrillation | CPT/HCPCS: 99214 ==

== ENCOUNTER → 2024-03-31 09:00 | Outpatient (BNVA) | payer MEDICARE, SELFPAY | PROVIDERS: PCP Internal Medicine; Visit Provider Nurse Practitioner Family | DX: I25.10 Atherosclerotic heart disease of native coronary artery without angina pectoris (principal); I34.0 Nonrheumatic mitral (valve) insufficiency; Z86.73 Personal history of transient ischemic attack (TIA), and cerebral infarction without residual deficits | CPT/HCPCS: 99214 ==

== ENCOUNTER 2024-04-01 12:01 | Outpatient (CLI) | payer MEDICARE, SELFPAY ==
--- NOTE | 2024-04-01 12:07 | USCV_ITS ---
Dalila Munoz Age: 83 Gender: F : 1940 Exam Date: 04/01/2024 12:10 Ordering Phys: Kenn Nash DO Technologist: [place] [facility] [place]: Risk Factors: Previous Vascular Surgery: Right Brachial BP: / Left Brachial BP: / Right Left Velocity (cm/s) Spectral Plaque Velocity (cm/s) Spectral Plaque Syst/Diast Broadening Syst/Diast Broadening 87.80/ 19.60 Prox CCA 27.00 / 5.20 84.40/ 22.60 Mid CCA 28.20 / 0.00 83.00/ 23.80 Distal CCA 44.90 / 0.00 49.60/ 15.40 Prox ICA / 86.70/ 27.80 Mid ICA / 69.80/ 17.90 Distal ICA / 110.00 ECA 499.60 1.00 ICA/CCA Antegrade Vertebral Antegrade 46.00/ 12.80 cm/s 57.60/ 13.60 cm/s Bi Subclavian Bi 217.9 160.0 0 0 FINDINGS Comparison:. 01/20/23. Chronic occlusion left ICA. Minimal right ICA atherosclerosis with no stenosis. Antegrade vertebral arteries. CONCLUSIONS Right ICA stenosis < 50%. Stable . Complete occlusion left ICA. Chronic Dr. Shell Snell DO (Electronically Signed) Final Date: 04 April 2024 12:37 S
== END 2024-04-01 12:02 | disposition home or self-care (01) ==
LOC: RAD 12:02
PROVIDERS: PCP Internal Medicine; Visit Provider Electrodiagnostic Medicine
DX: I65.22 Occlusion and stenosis of left carotid artery (principal)
CPT/HCPCS: 93880

== ENCOUNTER 2024-05-09 14:13 | Outpatient (CLI) | payer MEDICARE, SELFPAY ==
--- NOTE | 2024-05-09 | MM_ITS ---
WS: [id number] BILATERAL 3D TOMOSYNTHESIS DIGITAL SCREENING MAMMOGRAPHY WITH CAD CLINICAL INFORMATION: ANNUAL SCREENING HISTORY: Screening mammogram. No current complaints. COMPARISON: 2020 TECHNIQUE: Bilateral CC and MLO views. FINDINGS: Stable bilateral breast implants. Stable rupturing capsular calcification RIGHT breast implant. LEFT breast implant is stable in appearance. Scattered fibroglandular densities bilaterally. No suspicious focal mass, asymmetry, calcifications, or architectural distortion. No evidence of malignancy. A few incidental calcifications. MM/MM [facility] tomosynthesis [id number] IMPRESSION: DENSITY: There are scattered areas of fibroglandular density. BI-RADS: 2 - Benign. FOLLOW UP: 1 Year Follow-up Recommend return to annual screening mammography.
== END 2024-05-09 14:14 | disposition home or self-care (01) ==
LOC: RAD 14:15
PROVIDERS: PCP Internal Medicine; Visit Provider Electrodiagnostic Medicine
DX: Z12.31 Encounter for screening mammogram for malignant neoplasm of breast (principal); Z98.82 Breast implant status; R92.1 Mammographic calcification found on diagnostic imaging of breast; R92.323 Mammographic fibroglandular density, bilateral breasts
CPT/HCPCS: 77063; 77067

== ENCOUNTER → 2024-06-16 10:13 | Outpatient (BNVA) | payer MEDICARE, SELFPAY | PROVIDERS: PCP Internal Medicine; Visit Provider Internal Medicine Cardiovascular Disease | DX: I49.8 Other specified cardiac arrhythmias (principal); I25.10 Atherosclerotic heart disease of native coronary artery without angina pectoris; Z98.890 Other specified postprocedural states; I10 Essential (primary) hypertension; I34.0 Nonrheumatic mitral (valve) insufficiency; E78.5 Hyperlipidemia, unspecified | CPT/HCPCS: 99214 ==

== ENCOUNTER 2024-08-19 20:10 | Emergency (ER) | payer MEDICARE, SELFPAY ==
[2024-08-19 20:21] VITALS: BP 195/88; PULSE 64; RESP 18; TEMP 36.6; O2SAT 98; BMI 28.3
[2024-08-19 20:55] LABS: Basophils % 0.6 %; Eosinophils # 0.2 10^3/uL (0.0-0.8); Eosinophils % 2.3 %; Hematocrit 43.3 % (36-47); Lymphocytes # 0.7 10^3/uL (0.8-4.8); Lymphocytes % 10.6 %; Mean Corpuscular HGB Conc 32.8 g/dL (30-55); Mean Corpuscular Hemoglobin 29.5 pg (27-33); Mean Platelet Volume 10.1 fL (7.4-10.4); Monocytes # 0.6 10^3/uL (0.2-0.9); Monocytes % 8.1 %; Neutrophils # 5.39 10^3/uL (1.8-7.7); Neutrophils % 78.1 %; Nucleated Red Blood Cells % 0 %; Platelet Count 177 10^3/cmm (157-399); Red Blood Count 4.81 10^6/uL (3.85-5.65); Red Cell Distribution Width 13.1 % (12.1-15.1)
--- NOTE | 2024-08-19 21:04 | W.ED.NAVMDI ---
HPI - Nausea/Vomiting/Diarrhea General: Chief complaint: Nausea/Vomiting/Diarrhea Stated complaint: N/V Time Seen by Provider: 08/19/24 20:49 History of Present Illness: Patient is a pleasant 84-year-old female with history of CVA, HLD, HTN, presented to ED after abrupt onset of symptoms of nausea, and vomiting at 1700 today. She stated she threw up approximately 1 gallon of brown emesis. She also had a loose stool. She did attribute the loose stool to being on laxatives. She denied any abdominal pain. No melena. No recent antibiotics. Given patient's elevation of blood pressure at home, daughter decided that patient needed to come in via EMS. She did receive Zofran on the way in via ambulance, and now states that her nausea symptoms have diminished. She still endorses no abdominal pain. No further stools. Last food intake is confirmed at 1230 Associated nausea: Yes Associated symtoms: Reports nausea; Denies anxiety, chest pain, headache(s) or palpitations Related Data Home Medications ?Medication ?Instructions ?Recorded ?Confirmed aspirin 81 mg tablet,delayed 81 mg PO DAILY@209912/13/19 03/31/24 release (Adult Aspirin Regimen) calcitonin (salmon) 200 1 spray intranasal (ALT) DAILY 12/13/19 03/31/24 unit/actuation nasal spray citalopram 10 mg tablet 10 mg PO BEDTIME@209901/23/20 03/31/24 lysine 500 mg tablet (L-Lysine) 500 mg PO DAILY@119901/23/20 03/31/24 magnesium oxide 400 mg PO DAILY@119901/23/20 03/31/24 vitamin E 268 mg (400 unit) capsule 400 unit PO DAILY@119904/24/20 03/31/24 calcium 600 mg capsule 1,200 mg PO DAILY@05/18/20 03/31/24 [id number]-[id number]-[id number] 1 tab PO DAILY@119905/18/20 03/31/24 tablet (Vision Plus Lutein tablet) clopidogrel 75 mg tablet 75 mg PO DAILY@209907/05/20 03/31/24 metoprolol succinate 25 mg 25 mg PO DAILY@07/05/20 03/31/24 tablet,extended release 24 hr alprazolam 0.25 mg tablet 0.75 mg PO DAILY@209912/04/20 03/31/24 lisinopril 40 mg tablet 40 mg PO DAILY@2100 05/14/21 03/31/24 cholecalciferol (vitamin D3) 50 25 mcg PO DAILY@1200 07/15/22 03/31/24 mcg (2,000 unit) tablet (Vitamin D3) docusate sodium 50 mg capsule 50 mg PO DAILY 07/15/22 03/31/24 levothyroxine 88 mcg capsule 100 mcg PO DAILY@08 07/15/22 03/31/24 vit C 250 mg-vit E 90 mg-zinc 40 1 tab PO BID 07/15/22 03/31/24 mg-copper 1 [id number]-feqbxb capsule (PreserVision AREDS-2) Previous Rx's ?Medication ?Instructions ?Recorded acetaminophen 325 mg tablet 650 mg (2 x 325 mg) PO Q4H PRN 05/06/20 Mild Pain Or Increase Temp #100 tabs atorvastatin 80 mg tablet 80 mg PO DAILY #90 tabs 04/18/24 isosorbide mononitrate 60 mg See Rx Instructions .Route 08/04/24 tablet,extended release 24 hr .COMPLEX #90 tabs ondansetron 4 mg disintegrating 4 mg PO Q8H PRN nausea and 08/19/24 tablet vomiting 4 days #10 tabs Allergies Allergy/AdvReac Type Severity Reaction Status Date / Time morphine Allergy ADR-Halluci Verified 06/16/24 10:28 nating Review of Systems General: Reports: 10 or more systems reviewed and unremarkable except in HPI and below Const: Denies: fever(s) or chills Card: Denies: chest pain or palpitations Resp: Denies: dyspnea or productive cough GI: Reports: nausea, vomiting (started at 1700) and diarrhea (x1); Denies: abdominal pain Musc: Denies: neck pain or back pain Skin/Breast: Denies: rash or pruritus Neuro: Denies: headache(s) or numbness in extremities Psych: Denies: anxiety or depression PFS ED PFSH: Medical History (Updated 08/19/24 @ 22:18 by DELMER Singer) Benign essential HTN Atrial arrhythmia EKG from 12/26/2019 revealed sinus rhythm with a frequent PACs in the form of couplets. Reviewed ST-T changes. Poor R wave progression. Possible left atrial enlargement. Urinary incontinence, mixed Recurrent UTI Consistent with CHRONIC CYSTITIS Acute left arterial ischemic stroke, ICA (internal carotid artery) Left carotid artery occlusion Hypokalemia Dissection of carotid artery Pneumonia Respiratory failure CVA (cerebral vascular accident) Carotid stenosis Mitral regurgitation Left ventricular diastolic dysfunction Unsteadiness on feet Radiation thyroiditis Cataract Migraines IBS (irritable bowel syndrome) Heart murmur Surgical History H/O: hysterectomy History of bilateral breast implants Family History Mother , at age 89 CAD (coronary artery disease) Stroke Sister Cancer Father , at age 87 Hypertension Social History Smoking and tobacco/nicotine status: never used tobacco/nicotine Alcohol intake: never Marital status: / Current occupational status: retired Physical Exam Const: COMMON NORMALS: no acute distress and patient oriented x3 GENERAL APPEARANCE: cooperative HENMT: COMMON NORMALS: normocephalic HEAD & SCALP: normocephalic Chest: COMMONS NORMALS: normal inspection of the chest Resp: COMMON NORMALS: normal respiratory effort EFFORT & INSPECTION: Yes able to speak in complete sentences Cardio: COMMON NORMALS: S1 normal heart sound present and S2 normal heart sound present HEART SOUNDS: S1 normal heart sound present and S2 normal heart sound present GI: COMMON NORMALS: Normal to inspection, nondistended, normoactive bowel sounds present, Soft to palpation and non-tender INSPECTION: Yes normal to inspection, No abdominal distension and No Fluid wave present AUSCULTATION: Yes normoactive bowel sounds PALPATION: Yes Soft to palpation and No Tenderness to palpation present (GI) PERCUSSION: no fluid wave : COMMON NORMALS: Yes no CVA tenderness BLADDER/KIDNEY EXAM: Yes no CVA tenderness Back/Pelvis: COMMON NORMALS: no CVA tenderness Extremity: COMMON NORMALS: normal to inspection and full ROM Neuro: GRETEL COMA SCALE: other ([place]) COMMON NORMALS: patient oriented x3 and CN's II-XII intact bilaterally Psych: COMMON NORMALS: mental status grossly normal Skin: COMMON NORMALS: no rashes or lesions noted and no wounds GENERAL SKIN EXAM: no rashes or lesions noted Course Vital Signs: Vital signs: Vital Signs Temperature 98 F 05/23/25 20:21 Pulse Rate 58 L 08/19/24 21:35 Respiratory Rate 20 H 08/19/24 21:35 Blood Pressure 195/88 08/19/24 20:21 Pulse Oximetry 97 08/19/24 21:35 Oxygen Delivery Me thod Room Air 08/19/24 21:35 MDM - Nausea/Vomiting/Diarrhea Medical Decision Making Patient is a pleasant 84-year-old female that presents with abrupt onset of nausea, vomiting, and diarrhea. She attributed to her loose stool x 1 to laxatives. Her nausea, and vomiting were abrupt at 1700 however. Patient states she vomited a large volume of emesis. On physical examination, there are no red flags. She does not have any abdominal pain. There is no guarding, rebound, or any acute signs of concern. Will give IV fluids, and obtain routine labs. Patient states that this has resolved after Zofran and EMS x 1. Lab Data 08/19/24 20:50 08/19/24 20:50 Laboratory Results WBC 6.90 10^3/uL (3.29-11.43) 08/19/24 20:50 RBC 4.81 10^6/uL (3.85-5.65) 08/19/24 20:50 Hgb 14.20 g/dL (11.27-16.99) 08/19/24 20:50 Hct 43.3 % (36-47) 08/19/24 20:50 MCV 90.0 fl (85-98) 08/19/24 20:50 MCH 29.5 pg (27-33) 08/19/24 20:50 MCHC 32.8 g/dL (30-55) 08/19/24 20:50 RDW 13.1 % (12.1-15.1) 08/19/24 20:50 Plt Count 177 10^3/cmm (157-399) 08/19/24 20:50 MPV 10.1 fL (7.4-10.4) 08/19/24 20:50 Neut % (Auto) 78.1 % 08/19/24 20:50 Lymph % (Auto) 10.6 % 08/19/24 20:50 Crook % (Auto) 8.1 % 08/19/24 20:50 Eos % (Auto) 2.3 % 08/19/24 20:50 Baso % (Auto) 0.6 % 08/19/24 20:50 Neut # (Auto) 5.39 10^3/uL (1.8-7.7) 08/19/24 20:50 Lymph # (Auto) 0.7 10^3/uL (0.8-4.8) L 08/19/24 20:50 Crook # (Auto) 0.6 10^3/uL (0.2-0.9) 08/19/24 20:50 Eos # (Auto) 0.2 10^3/uL (0.0-0.8) 08/19/24 20:50 Baso # (Auto) 0.0 10^3/uL (0.0-0.1) 08/19/24 20:50 Nucleated RBC % (auto) 0 % 08/19/24 20:50 Nucleated RBCs # 0.0 /100WBC 08/19/24 20:50 Sodium 141 mmol/L (136-145) 08/19/24 20:50 Potassium 4.0 mmol/L (3.5-5.1) 08/19/24 20:50 Chloride 104 mmol/L (98-107) 08/19/24 20:50 Carbon Dioxide 25 mmol/L (22-29) 08/19/24 20:50 Anion Gap 16.0 (5-19) 08/19/24 20:50 BUN 15 mg/dL (8-23) 08/19/24 20:50 Creatinine 0.9 mg/dL (0.5-0.9) 08/19/24 20:50 GFR Calculation Not Reportable 08/19/24 20:50 Glucose 118 mg/dL (65-115) H 08/19/24 20:50 Calculated Osmolality 294 mOsm/kg (285-295) 08/19/24 20:50 Lactic Acid 1.7 mmol/L (0.5-2.2) 08/19/24 20:50 Calcium 9.3 mg/dL (8.5-10.5) 08/19/24 20:50 Magnesium 2.1 mg/dL (1.7-2.3) 08/19/24 20:50 Total Bilirubin 0.5 mg/dL (0.15-1.2) 08/19/24 20:50 AST 21 U/L (0-32) 08/19/24 20:50 ALT 15 U/L (0-33) 08/19/24 20:50 Alkaline Phosphatase 110 U/L (35-105) H 08/19/24 20:50 Total Protein 6.9 g/dL (6.6-8.7) 08/19/24 20:50 Albumin 4.0 g/dL (3.5-5.2) 08/19/24 20:50 Globulin 2.9 g/dL (1.3-4.6) 08/19/24 20:50 Lipase 14 U/L (13-60) 08/19/24 20:50 Urine Color Yellow (Yellow) 08/19/24 21:05 Urine Appearance Clear (CLEAR) 08/19/24 21:05 Urine pH 8.5 (5-7) A 08/19/24 21:05 Ur Specific [place] 1.007 (1.005-1.030) 08/19/24 21:05 Urine Protein Negative (Negative) 08/19/24 21:05 Urine Glucose (UA) Negative (Normal) 08/19/24 21:05 Urine Ketones Negative (Negative) 08/19/24 21:05 Urine Blood Negative (Negative) 08/19/24 21:05 Urine Nitrate Negative (Negative) 08/19/24 21:05 Urine Bilirubin Negative (Negative) 08/19/24 21:05 Urine Urobilinogen 0.2 mg/dL (Negative) 08/19/24 21:05 Ur Leukocyte Esterase Negative (Negative) 08/19/24 21:05 Urine RBC 0-2 /hpf (0-2) 08/19/24 21:05 Urine WBC 0-5 /hpf (0-5) 08/19/24 21:05 Ur Squamous Epith Cells 0-5 /hpf (0-5) 08/19/24 21:05 Amorphous Sediment Not Reportable 08/19/24 21:05 Urine Bacteria None seen /hpf (NONE) 08/19/24 21:05 Hyaline Casts 0-4 /lpf H 08/19/24 21:05 No radiology studies performed this visit Discharge Plan Discharge Patient Disposition: Home Clinical Impression: Gastroenteritis Condition: Stable Prescriptions: New ondansetron 4 mg tablet,disintegrating 4 mg PO Q8H PRN (Reason: nausea and vomiting) 4 Days Qty: 10 0RF No Action citalopram 10 mg tablet 10 mg PO BEDTIME@2100 magnesium oxide 400 mg magnesium tablet 400 mg PO DAILY@1200 lysine [L-Lysine] 500 mg tablet 500 mg PO DAILY@1200 calcitonin (salmon) 200 unit/actuation spray,non-aerosol 1 spray intranasal (ALT) DAILY aspirin [Adult Aspirin Regimen] 81 mg tablet,delayed release (DR/EC) 81 mg PO DAILY@2100 levothyroxine 88 mcg capsule 100 mcg PO DAILY@08 PreserVision AREDS-2 250-90-40-1 mg capsule 1 tab PO BID docusate sodium 50 mg capsule 50 mg PO DAILY atorvastatin 80 mg tablet 80 mg PO DAILY Qty: 90 3RF isosorbide mononitrate 60 mg tablet extended release 24 hr See Rx Instructions .ROUTE .COMPLEX Qty: 90 3RF Dose Instruction: TAKE 1 TABLET BY MOUTH DAILY Rx Instructions: TAKE 1 TABLET BY MOUTH DAILY calcium 600 mg Capsule 1,200 mg PO DAILY@08 Vision Plus Lutein Tablet 1 tab PO DAILY@1200 cholecalciferol (vitamin D3) [Vitamin D3] 50 mcg (2,000 unit) tablet 25 mcg PO DAILY@1200 vitamin E 400 unit Capsule 400 unit PO DAILY@1200 acetaminophen 325 mg Tablet 650 mg PO Q4H PRN (Reason: Mild Pain Or Increase Temp) Qty: 100 5RF clopidogrel 75 mg tablet 75 mg PO DAILY@2100 metoprolol succinate 25 mg tablet extended release 24 hr 25 mg PO DAILY@08 alprazolam 0.25 mg tablet 0.75 mg PO DAILY@2100 lisinopril 40 mg tablet 40 mg PO DAILY@2100 Discharge Orders: Discharge ED (Routine); Ordered 08/19/24 Ordered By: Maryam Brizuela Discharge Diet: Full LIquid Discharge Activity: Resume usual activity Patient Instructions: Full Liquid Diet, Gastroenteritis (ED), Acute Nausea and Vomiting (ED), DASH Eating Plan (ED) Activity Restrictions/Additional Instructions: Utilize a full liquid diet x 24 hours, then advance to what is called the brat diet: Bananas, rice, applesauce/apples, toast. If this is tolerated, advance diet carefully. As discussed, you can utilize Benadryl liquid 25 mg for nausea symptoms up to every 4 hours with caution of sedation. Caution on Zofran (sent to pharmacy). Do not use more than 3 times in 24 hours Follow a Dash diet for blood pressure control. We did not correct her blood pressure at this time to avoid concerns for safety, and patient falling. 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
[2024-08-19] MEDS: sodium chloride 0.9% 1,000 ML 999 ML IV (21:08)
[2024-08-19 21:14] LABS: Bilirubin Urine Negative (Negative); Blood Urine Negative (Negative); Glucose Urine UA Negative (Normal); Ketones Urine Negative (Negative); Leukocyte Esterase Urine Negative (Negative); Nitrate Urine Negative (Negative); Protein Urine Negative (Negative); Specific Gravity, Urine 1.007 (1.005-1.030); Urine Appearance Clear (CLEAR); Urine Color Yellow (Yellow); Urobilinogen Urine 0.2 mg/dL (Negative); pH Urine 8.5 (5-7)
[2024-08-19 21:16] LABS: Alanine Aminotransferase 15 U/L (0-33); Alkaline Phosphatase 110 U/L (35-105); Aspartate Amino Transferase 21 U/L (0-32); Blood Urea Nitrogen 15 mg/dL (8-23); Calcium 9.3 mg/dL (8.5-10.5); Carbon Dioxide 25 mmol/L (22-29); Chloride 104 mmol/L (98-107); Creatinine Clr Calc Pharmacy 46.9263; Globulin 2.9 g/dL (1.3-4.6); Glucose 118 mg/dL (65-115); Lipase 14 U/L (13-60); Magnesium 2.1 mg/dL (1.7-2.3); Osmolality Calculated 294 mOsm/kg (285-295); Sodium 141 mmol/L (136-145); Total Bilirubin 0.5 mg/dL (0.15-1.2); Total Protein 6.9 g/dL (6.6-8.7)
[2024-08-19 21:17] LABS: Lactic Sepsis W/Reflex 1.7 mmol/L (0.5-2.2)
[2024-08-19 21:19] LABS: Add Urine Microscopic? YES; Bacteria Urine None Seen /hpf; Hyaline Casts Urine 0-4 /lpf; RBC Urine 0-2 /hpf (0-2); Squamous Epithelial Cell Urine 0-5 /hpf (0-5); WBC Urine 0-5 /hpf (0-5)
[2024-08-19 21:35] VITALS: PULSE 58; RESP 20; O2SAT 97
[2024-08-19 22:49] VITALS: BP 176/85; PULSE 63; RESP 16; O2SAT 98
== END 2024-08-19 22:50 | disposition home or self-care (01) ==
PROVIDERS: General Practice; Emergency Provider Physician Assistant
DX: K52.9 Noninfective gastroenteritis and colitis, unspecified (principal); E78.5 Hyperlipidemia, unspecified; I10 Essential (primary) hypertension; Z86.73 Personal history of transient ischemic attack (TIA), and cerebral infarction without residual deficits; Z79.899 Other long term (current) drug therapy; Z79.82 Long term (current) use of aspirin; Z79.890 Hormone replacement therapy
CPT/HCPCS: 80053; 81001; 83605; 83690; 83735; 85025; 99283; J7030

== ENCOUNTER 2024-11-17 12:41 | Outpatient (CLI) | payer MEDICARE, SELFPAY ==
--- NOTE | 2024-11-17 12:47 | USCV_ITS ---
Dalila Munoz Age: 84 Gender: F : 1940 Exam Date: 11/17/2024 13:02 Ordering Phys: Kenn Nash DO Technologist: Exam Location: [facility] [place] [facility] [place] Indication: cp sob BP: 120 / 70 HR: 66 Rhythm: Sinus Technical Quality: Adequate MEASUREMENTS (Male / Female) Normal Values 2D ECHO LV Diastolic Diameter PLAX 4.3 cm 4.2 - 5.9 / 3.9 - 5.3 cm IVS Diastolic Thickness 1.2 cm 0.6 - 1.0 / 0.6 - 0.9 cm IVS Systolic Thickness 1.7 cm LVPW Diastolic Thickness 1.4 cm 0.6 - 1.0 / 0.6 - 0.9 cm LVPW Systolic Thickness 1.8 cm LVOT Diameter 2.0 cm LV Ejection Fraction 2D Teich 66.1 % LV Ejection Fraction MOD 4C 73.8 % LV Ejection Fraction MOD 2C 67.5 % LV Ejection Fraction 2C AL 66.4 % LA Diameter 3.7 cm RA Systolic Volume 4C AL 30.4 ml RA Systolic Volume 4C MOD 28.2 ml LA Sys Volume AL 39.9 cm cubed LA Sys Volume Index AL 20.9 cm cubed/m squared Aorta at Sinotubular Diameter 3.0 cm M-MODE LA Ao Ratio MM 2.0 AV Cusp Separation MM 2.3 cm DOPPLER AV Peak Velocity 160.0 cm/s LVOT Peak Velocity 103.0 cm/s AV Area Cont Eq vti 2.3 cm squared AV Area Cont Eq pk 2.0 cm squared MV Peak Velocity 172.0 cm/s MV Area PHT 3.1 cm squared Mitral E to A Ratio 1.2 TR Peak Velocity 321.0 cm/s TR Peak Gradient 41.2 mmHg FINDINGS Left Ventricle Normal left ventricular size, systolic function and wall thickness, with no regional wall motion abnormalities. Left ventricular ejection fraction is estimated at 60 %. Grade II/IV diastolic dysfunction, moderately elevated filling pressures. Right Ventricle The right ventricle is normal in size and function. Right Atrium The right atrium is normal in size. Left Atrium The left atrium is normal in size. Mitral Valve Mildly thickened mitral valve. No mitral valve stenosis. Mild mitral valve regurgitation. Aortic Valve Structurally normal aortic valve without significant sclerosis or stenosis. There is no aortic regurgitation. Tricuspid Valve Structurally normal tricuspid valve without significant stenosis or regurgitation. Pulmonary artery systolic pressure is normal. Pulmonic Valve Structurally normal pulmonic valve without significant stenosis. There is no pulmonic regurgitation. Pericardium Normal pericardium without effusion. Aorta Normal ascending aorta dimension. IVC The inferior vena cava appears normal. CONCLUSIONS Normal left ventricular size, systolic function and wall thickness, with no regional wall motion abnormalities. Left ventricular ejection fraction is estimated at 60 %. Grade II/IV diastolic dysfunction, moderately elevated filling pressures. Mildly thickened mitral valve. No mitral valve stenosis. Mild mitral valve regurgitation There is no pericardial effusion. Right atrial pressure is around 5 mm of mercury. Jennifer Cooper MD (Electronically Signed) Final Date: 23 November 2024 21:22 S
== END 2024-11-17 12:42 | disposition home or self-care (01) ==
LOC: RAD 12:41
PROVIDERS: PCP Electrodiagnostic Medicine; Visit Provider Electrodiagnostic Medicine
DX: R01.1 Cardiac murmur, unspecified (principal); R93.1 Abnormal findings on diagnostic imaging of heart and coronary circulation; I34.1 Nonrheumatic mitral (valve) prolapse
CPT/HCPCS: 93306

== ENCOUNTER → 2025-02-27 11:04 | Outpatient (BNVA) | payer MEDICARE, SELFPAY | PROVIDERS: PCP Electrodiagnostic Medicine; Visit Provider Internal Medicine Cardiovascular Disease | DX: I25.10 Atherosclerotic heart disease of native coronary artery without angina pectoris (principal); I49.8 Other specified cardiac arrhythmias; I10 Essential (primary) hypertension; E78.5 Hyperlipidemia, unspecified; I34.0 Nonrheumatic mitral (valve) insufficiency; Z98.890 Other specified postprocedural states; Z79.02 Long term (current) use of antithrombotics/antiplatelets; Z79.82 Long term (current) use of aspirin; Z86.73 Personal history of transient ischemic attack (TIA), and cerebral infarction without residual deficits; R06.02 Shortness of breath; R07.9 Chest pain, unspecified | CPT/HCPCS: 36415; 80048; 83880; 93005; 99214 ==